=== PATIENT | female | born 1930 | race Caucasian/White ===

== ENCOUNTER → 2017-09-16 | Outpatient (CLI) | payer OTHER ==
[~2017-09-16] MED LIST: ALLOPURINOL300 MG PO; AMIODARONE HCL200 MG PO; ASPIRIN81 MG PO; BACTRIM DS TAB1 EACH PO; CALCITRIOL0.5 MCG PO; CELEXA20 MG PO; CITALOPRAM HBR20 MG PO; COLESTID1 G PO; COREG CR80 MG PO; CYTOMEL5 MCG PO; DOXYCYCLINE HY100 MG PO; ESTRADIOL1 MG PO; FIBERCON625 MG PO; FOLBEE TABLET1 EACH PO; FOLIC ACID1 MG PO; FUROSEMIDE40 MG PO; HYDROCODON-ACE1 EACH PO; HYDROXYCHLOROQ200 MG PO; K DUR10 MEQ PO; LASIX40 MG PO; OMEGA 3-6-9 11200 MG PO; PACERONE100 MG PO; PREDNISONE5 M1 PO; PREMARIN0.9 MG PO; PREMARIN1.25 MG PO; ROPINIROLE HCL1 MG PO; SIMVASTATIN20 MG PO; SULFASALAZINE500 M1 PO; TEMAZEPAM30 MG PO; ULORIC80 MG PO; ZETIA10 MG PO; ZITHROMAX250 MG PO
== END ==
LOC: NPA 09:00
PROVIDERS: ATTEND Internal Medicine
DX: Z02.89 Encounter for other administrative examinations (principal)

== ENCOUNTER → 2017-09-17 | Outpatient (CLI) | payer OTHER | LOC: NPA 09:00 | DX: Z02.89 Encounter for other administrative examinations (principal) | CPT/HCPCS: 87071; 87205 ==

== ENCOUNTER → 2017-09-24 | Outpatient (CLI) | payer OTHER ==
[2017-09-24 17:12] LABS: BASOPHILS # (AUTO) 0.1 (0.0-0.1); EOSINOPHILS # (AUTO) 0.4 (0.0-0.4); EOSINOPHILS % 8.8 % (0.0-6.0); HEMOGLOBIN 9.5 g/dL (12.0-16.0); LYMPHOCYTES # (AUTO) 1.4 (1.0-3.2); LYMPHOCYTES % 28.7 % (18.0-39.1); MEAN CORPUSCULAR HEMOGLOBIN 30.2 pg (28-32); MEAN CORPUSCULAR HGB CONC 32.8 g/dL (31-35); MEAN CORPUSCULAR VOLUME 92.1 fL (81-99); MONOCYTES # (AUTO) 0.5 (0.2-0.8); MONOCYTES % 10.9 % (4.4-11.3); NEUTROPHILS # (AUTO) 2.4 (2.1-6.9); NEUTROPHILS % 50.2 % (38.7-80.0); PLATELET COUNT 314 x10e3/uL (140-360); RED BLOOD COUNT 3.15 x10e6/uL (3.6-5.1); RED CELL DISTRIBUTION WIDTH 17.7 % (11.7-14.4)
== END ==
LOC: NPA 13:30
PROVIDERS: ATTEND Internal Medicine
DX: Z02.89 Encounter for other administrative examinations (principal)
CPT/HCPCS: 36415; 85025

== ENCOUNTER 2017-11-17 15:24 | Inpatient (IN) | payer MEDICARE, OTHER ==
[~2017-11-17] VITALS: Ht 175.3 cm; Wt 78.0 kg
--- OUTSIDE RECORDS SUMMARY | 2017-11-17 15:26 | XMS REPORT ---
Author Author [facility] Address Unknown Phone Unavailable Care Team Providers Care Early Morning Name Role Phone JL PACE Unavailable Unavailable RUEL STUART Unavailable Unavailable KASEY MENSAH Unavailable Unavailable ALEJANDRA SAUNDERS Unavailable Unavailable YOUNG SALAZAR Unavailable Unavailable Problems This patient has no known problems. Allergies, Adverse Reactions, Alerts This patient has no known allergies or adverse reactions. Medications This patient has no known medications. Results Test Description Test Time Test Comments Text Results Atomic Results Result Comments CT BRAIN WO [place] [address] Patient Name: SANDRA CLEMONS MR #: [id number] : 1930 Age/Sex: 87/F Req #: [id number] Adm Physician: JL PACE MD Ordered by: JACOB CESPEDES MD Report #: [id number] Location: [facility] Room/Bed: [facility] _ Procedure: [id number] CT/CT BRAIN WO Exam Date: 07/20/17 Exam Time: 1015 REPORT STATUS: Signed EXAMINATION: Head CT HISTORY: Altered mental status COMPARISON: None. TECHNIQUE: Multidetector axial images were obtained without contrast from the foramen magnum to the vertex . The images were reconstructed using brain and bone algorithms. Thin section brain images were reformatted into coronal and sagittal planes. Intravenous contrast: None. Motion/streaking artifact limits the evaluation of the skull base and posterior cranial fossa. FINDINGS: Parenchyma: 1. No abnormal densities. 2. No mass or hemorrhage. No CT evidence of acute territorial vascular insult. Extra-axial spaces:No abnormal density. No extra-axial fluid collections Brain volume: Normal for age. Ventricles: No hydrocephalus or displacement. Arteries: No density suggestive of thrombus. Dural sinuses: No abnormal density. Extra-axial spaces: No abnormal density. Foramen magnum: No mass, Chiari malformation, or basilar invagination. Sella: No obvious mass. Paranasal/mastoid sinuses : Mild mucosal inflammatory thickening of the maxillary sinuses and partial opacification of the left anterior ethmoidal sinuses. Skull/Scalp: No lytic or blastic lesions. No fractures. IMPRESSION: No acute intracranial abnormalities, particularly no mass, hydrocephalus, hemorrhage or acute cortical infarct. Signed by: Dr. Fariha Núñez M.D. on 07/20/2017 7: 01 PM Dictated By: FARIHA NÚÑEZ MD 00 Transcribed By: CLAUDIA on 07/20/171900 COPY TO: JACOB CESPEDES MD CT CERVICAL SPINE WO [place] [address] Patient Name: SANDRA CLEMONS MR #: [id number] : 1930 Age/Sex: 87/F Req #: [id number] Adm Physician: Ordered by: RUEL STUART MD Report #: [id number] Location: ER Room/Bed: ___ Procedure: [id number] CT/CT CERVICAL SPINE WO Exam Date: 07/12/17 Exam Time: 2313 REPORT STATUS: Signed History: Neck pain Comparison studies: CT neck 05/01/2017 Technique: Axial images were obtained through the cervical region.. Coronal and sagittal images reconstructed from the axial data.. Intravenous contrast: None Image quality: Suboptimal evaluation due to streak and motion artifacts. Findings: Fractures: None. Soft tissue injuries: None. Atlantoaxial articulation: No acute abnormality, degenerative changes given by decreased predental space, sclerotic changes and marginal osteophyte. Alignment: Straightening of the cervical spine lordosis with grade 1 anterolisthesis at C4- C5. Cervicomedullary junction: No abnormalities. The foramen magnum is patent. Soft tissues: No abnormalities. Vertebrae: No fractures, infection or neoplasm. Degenerative changes: C2 -- C3: Bilateral facet hypertrophy without significant canal stenosis or foraminal narrowing. C3 -- C4: Decreased intervertebral space. Bilateral uncinate process hypertrophy, bilateral facet hypertrophy and posterior disc of right complex results in mild canal stenosis, severe right and moderate left foraminal narrowing. C4 -- C5: Decreased intervertebral space, endplate sclerotic changes. Posterior disc osteophyte complex, bilateral uncinate process hypertrophy and facet hypertrophy results in mild canal stenosis and moderate bilateral. C5 -- C6: Obliterated intervertebral space with endplate sclerotic changes. Diffuse disc osteophyte complex, bilateral uncinate process hypertrophy and facet hypertrophy results in moderate canal stenosis and moderate bilateral foraminal narrowing. C6 -- C7: Decreased intervertebral space. Diffuse disc osteophyte complex, bilateral uncinate process hypertrophy and facet hypertrophy results in mild canal stenosis, severe right and moderate left foraminal narrowing. C7 -- T1: Facet hypertrophy with patent canal and. Incidental findin.1 x 0.9 cm hypodense nodule in left lobe of thyroid. Emphysematous changes at both lung apices. IMPRESSION: 1. No acute cervical abnormality. Degenerative of the cervical spine as described above. Stable examination. . Signed by: DR Parish David M.D. on 07/12/2017 11:29 PM Dictated By: PARISH OATES MD 28 Transcribed By: CLAUDIA on 07/12/172328 COPY TO: RUEL STUART MD SHOULDER LEFT COMPLETE [place] [address] Patient Name: SANDRA CLEMONS MR #: [id number] : 1930 Age/Sex: 87/F Req #: [id number] [facility] Physician: Ordered by: KASEY MENSAH MD Report #: [id number] Location: ER Room/Bed: Procedure: [id number] DX/SHOULDER LEFT COMPLETE Exam Date: 05/01/17 Exam Time: 1105 REPORT STATUS: Signed PROCEDURE: X- RAY LEFT SHOULDER, external, and internal rotation views COMPARISON: [facility], DX, CHEST 2 VIEWS, 08/05/2016, 11:00. [facility], DX, CHEST SINGLE (NOT PORTABLE), 05/01/2017, 11:04. INDICATIONS: LEFT SHOULDER PAIN FROM FALL FINDINGS: Exam limited by limited mobility due to c-collar. Normal mineralization for age. No acute displaced fracture or dislocation. No lytic or blastic lesions. Soft tissues are unremarkable. Partially visualized. Cardiac device in the left upper chest. Visualized portions of left lung are clear. CONCLUSION: No acute displaced fracture or dislocation, within the limitations of the study.. Chris Martinez M.D. Dictated by : Chris Martinez M.D. on 05/01/2017 at 12:28 Electronically approved by: Chris Martinez M.D. on 05/01/2017 at 12:28 Dictated By : CHRIS MARTINEZ MD 1228 Transcribed By: LUCIANO on 05/01/17 1228 COPY TO: KASEY MENSAH MD CT CERVICAL SPINE WO [place] [address] Patient Name: SANDRA CLEMONS MR #: [id number] : 1930 Age/Sex: 87/F Req #: [id number] Adm Physician: Ordered by: KASEY MENSAH MD Report #: [id number] Location: ER Room/Bed: Procedure: [id number] CT/CT CERVICAL SPINE WO Exam Date: Exam Time: REPORT STATUS: Signed Exams: Head and cervical spine CTs without IV contrast History: Fall, pain Comparison studies: Head and cervical spine CTs of 05/26/2014. Technique: Axial images were obtained from the brain and cervical spine. Coronal and sagittal images reconstructed from the axial data. Intravenous contrast: None Findings: Head CT: Scalp: No abnormalities. Bones: No fractures, blastic or lytic lesions. Extra-axial spaces: No masses. No fluid collections. Brain sulci: Mildly prominent age appropriate Ventricles: Normal in size and configuration. No hydrocephalus. Parenchyma: No abnormal densities. No masses, acute hemorrhage, acute or chronic vascular insults. Sellar/ suprasellar region: No abnormalities. Craniocervical junction: The foramen magnum is patent. No Chiari one malformation. Cervical spine CT: Fractures: No acute fractures. Subtle deformity of the right spinal laminar junction may be sequela previous trauma. Soft tissues: No gross abnormalities. Atlantoaxial articulation: Intact. Alignment: Straightened cervical curvature may be positional. There is minimal anterolisthesis of C4 on C5 and anterolisthesis of C7 on T1 are likely degenerative and unchanged. Cervicomedullary junction: No abnormalities. The foramen magnum is patent. Vertebrae: No infection or neoplasm. Degenerative changes: C2-C3: Mildly degenerated disc. Mild canal stenosis due to a disc osteophyte complex and thickened ligamenta flava Severe left facet arthrosis. C3-C4: Moderately degenerated disc. Mild canal stenosis due to a disc osteophyte,. Severe left and moderate right foraminal stenosis due to uncovertebral and severe right and moderate left frontal stenosis. C4-C5: Moderately degenerated disc. Minimal anterolisthesis of C4 on C5 with associated disc osteophyte complex results in at least mild canal stenosis. Moderate bilateral foraminal stenosis due to uncovertebral and severe left and moderate right foraminal stenosis. C5-C6: Severely degenerated disc. Moderate to severe canal stenosis due to a disc osteophyte complex. Moderate bilateral foraminal stenosis due to uncovertebral and facet arthrosis. C6 -C7: Moderately degenerated disc. Mild to moderate canal stenosis due to a disc osteophyte complex. Severe bilateral foraminal stenosis due to uncovertebral arthrosis. C7-T1: Severe bilateral facet arthrosis. Patent canal and foramina. Lung apices: Mild nonspecific pleural thickening and scarring at the lung apices. Incidental findings: Atherosclerotic calcifications in the carotid siphons and in the cervical carotid bulbs. Bilateral lens replacements related to previous cataract surgery. Nonspecific inflammatory mucosal thickening in the bilateral maxillary sinuses. IMPRESSION: Head CT: 1. No acute abnormalities. 2. Mild age-related generalized volume loss. 3. No changes from the previous head CT of 2013. Cervical spine CT: 1. No acute cervical spine fracture or acute subluxation. 2. Moderate degenerative changes as described. 3. No significant changes from the previous cervical spine CT of 05/26/2014. 4. Cannot exclude ligament, spinal cord and or vascular abnormalities on the basis of this examination. Signed by: Dr. Kelton Gandara M.D. on 05/01/2017 11:59 AM Dictated By: KELTON GANDARA MD 1151 Transcribed By: CLAUDIA on 05/01/17 1154 COPY TO: KASEY MENSAH MD CT BRAIN WO [place] [address] Patient Name: SANDRA CLEMONS MR #: [id number] : 1930 Age/Sex: 87/F Req #: [id number] Adm Physician: Ordered by: KASEY MENSAH MD Report #: [id number] Location: Room/Bed: Procedure: [id number] CT/CT BRAIN WO Exam Date: Exam Time: REPORT STATUS: Signed Exams: Head and cervical spine CTs without IV contrast History: Fall, pain Comparison studies: Head and cervical spine CTs of 05/26. Technique: Axial images were obtained from the brain and cervical spine. Coronal and sagittal images reconstructed from the axial data. Intravenous contrast: None Findings: Head CT: Scalp: No abnormalities. Bones: No fractures, blastic or lytic lesions. Extra- axial spaces: No masses. No fluid collections. Brain sulci: Mildly prominent age appropriate Ventricles: Normal in size and configuration. No hydrocephalus. Parenchyma: No abnormal densities. No masses, acute hemorrhage, acute or chronic vascular insults. Sellar/suprasellar region: No abnormalities. Craniocervical junction: The foramen magnum is patent. No Chiari one malformation. Cervical spine CT: Fractures: No acute fractures. Subtle deformity of the right spinal laminar junction may be sequela previous trauma. Soft tissues: No gross abnormalities. Atlantoaxial articulation: Intact. Alignment: Straightened cervical curvature may be positional. There is minimal anterolisthesis of C4 on C5 and anterolisthesis of C7 on T1 are likely degenerative and unchanged. Cervicomedullary junction: No abnormalities. The foramen magnum is patent. Vertebrae: No infection or neoplasm. Degenerative changes: C2- C3: Mildly degenerated disc. Mild canal stenosis due to a disc osteophyte complex and thickened ligamenta flava Severe left facet arthrosis. C3-C4: Moderately degenerated disc. Mild canal stenosis due to a disc osteophyte,. Severe left and moderate right foraminal stenosis due to uncovertebral and severe right and moderate left frontal stenosis. C4-C5: Moderately degenerated disc. Minimal anterolisthesis of C4 on C5 with associated disc osteophyte complex results in at least mild canal stenosis. Moderate bilateral foraminal stenosis due to uncovertebral and severe left and moderate right foraminal stenosis. C5-C6: Severely degenerated disc. Moderate to severe canal stenosis due to a disc osteophyte complex. Moderate bilateral foraminal stenosis due to uncovertebral and facet arthrosis. C6 -C7: Moderately degenerated disc. Mild to moderate canal stenosis due to a disc osteophyte complex. Severe bilateral foraminal stenosis due to uncovertebral arthrosis. C7-T1: Severe bilateral facet arthrosis. Patent canal and foramina. Lung apices: Mild nonspecific pleural thickening and scarring at the lung apices. Incidental findings: Atherosclerotic calcifications in the carotid siphons and in the cervical carotid bulbs. Bilateral lens replacements related to previous cataract surgery. Nonspecific inflammatory mucosal thickening in the bilateral maxillary sinuses. IMPRESSION: Head CT: 1. No acute abnormalities. 2. Mild age-related generalized volume loss. 3. No changes from the previous head CT of 2013. Cervical spine CT: 1. No acute cervical spine fracture or acute subluxation. 2. Moderate degenerative changes as described. 3. No significant changes from the previous cervical spine CT of 05/26/2014. 4. Cannot exclude ligament, spinal cord and or vascular abnormalities on the basis of this examination. Signed by: Dr. Kelton Gandara M.D. on 05/01/2017 11:59 AM Dictated By: KELTON GANDARA MD 115 Transcribed By: CLAUDIA on 05/01/17 115 COPY TO: KASEY MENSAH MD FOREARM LEFT 2 VIEW [place] [address] Patient Name: SANDRA CLEMONS MR #: [id number] : 1930 Age/Sex: 87/F Req #: [id number] Adm Physician: Ordered by: KASEY MENSAH MD Report #: [id number] Location: Room/Bed: Procedure: DX/FOREARM LEFT 2 VIEW Exam Date: Exam Time: REPORT STATUS: Signed PROCEDURE: X-RAY LEFT FOREARM , TWO VIEWS COMPARISON: None. INDICATIONS: LEFT ARM PAIN FINDINGS: Normal mineralization for age. No acute displaced fracture or dislocation. No lytic or blastic lesion. Elbow joint spaces are relatively well-preserved. Moderate degenerative changes at the first finger carpometacarpal joint and second and third finger metacarpophalangeal joints. Multiple metallic clips project in the soft tissues of the ulnar side of the elbow. CONCLUSION: No acute abnormalities. Findings in the first carpometacarpal joint and second and third metacarpophalangeal joints likely reflect osteoarthritis. Chris Martinez M.D. Dictated by: Chris Martinez M.D. on 05/01/2017 at 12:20 Electronically approved by: Chris Martinez M.D. on 05/01/2017 at 12:20 Dictated By: CHRIS MARTINEZ MD 1220 Transcribed By: LUCIANO on 05/01/17 1220 COPY TO: KASEY MENSAH MD CHEST SINGLE (NOT PORTABLE) [place] [address] Patient Name: SANDRA CLEMONS MR #: [id number] : 1930 Age/Sex: 87/F Req #: [id number] Adm Physician: Ordered by: KASEY MENSAH MD Report #: [id number] Location: ER Room/Bed: Procedure: DX/CHEST SINGLE (NOT PORTABLE) Exam Date: Exam Time: REPORT STATUS: Signed PROCEDURE: A single AP view of the chest. COMPARISON: [facility], DX, CHEST SINGLE (PORTABLE), 04/27/2017, 1:18. INDICATIONS: FALL FINDINGS: Lines/tubes: Left-sided cardiac device with 2 atrial leads and a single right ventricular lead. Lungs: The lungs are well inflated and clear. There is no evidence of pneumonia or pulmonary edema. Pleura: There is no pleural effusion or pneumothorax. Heart and mediastinum: The heart and the mediastinum are unremarkable. Bones: No acute bony abnormality. No obvious rib fractures. IMPRESSION: No acute cardiopulmonary disease. Wes Copeland D.O. Dictated by: Wes Copeland D.O. on 05/01/2017 at 12:22 Electronically approved by: Wes Copeland D.O. on 05/01/2017 at 12:22 Dictated By: WES COPELAND DO 1222 Transcribed By: LUCIANO on 05/01/17 1222 COPY TO: KASEY MENSAH MD HAND 3+ VIEWS LEFT [place] [address] Patient Name: SANDRA CLEMONS MR #: [id number] : 1930 Age/Sex: 87/F Req #: [id number] Adm Physician: Ordered by: KASEY MENSAH MD Report #: [id number] Location: ER Room/Bed: Procedure: [id number] DX/HAND 3+ VIEWS LEFT Exam Date: Exam Time: REPORT STATUS: Signed PROCEDURE: X-RAY LEFT HAND, THREE OR MORE VIEWS COMPARISON: None. INDICATIONS: LEFT HAND PAIN FROM FALL FINDINGS: Moderate juxta-articular osteopenia. No acute, displaced fractures or dislocations. Moderate degenerative changes at the first carpometacarpal joint, first distal interphalangeal joint, second, and third metacarpophalangeal joints, with cystic degenerative changes, and all distal interphalangeal joints. Mild subluxation of the third metacarpophalangeal joint. No lytic lesions. Soft tissues are grossly unremarkable. CONCLUSION: Juxta-articular osteopenia, which limits evaluation of the bony structures. No acute displaced fracture or dislocation. Findings consistent with osteoarthritis. Chris Martinez M.D. Dictated by: Chris Martinez M.D. on 05/01/2017 at 12:23 Electronically approved by: Chris Martinez M.D. on 05/01/2017 at 12:23 Dictated By: CHRIS MARTINEZ MD 1223 Transcribed By: LUCIANO on 05/01/17 1223 COPY TO: KASEY MENSAH MD KNEE LEFT THREE VIEWS [place] [address] Patient Name: SANDRA CLEMONS MR #: [id number] : 1930 Age/Sex: 87/F Req #: [id number] Adm Physician: Ordered by: KASEY MENSAH MD Report #: [id number] Location: ER Room/Bed: Procedure: [id number] DX/KNEE LEFT THREE VIEWS Exam Date: 05/01/17 Exam Time: 1105 REPORT STATUS: Signed PROCEDURE: X- RAY LEFT KNEE, THREE OR MORE VIEWS COMPARISON: [facility], DX, KNEE LEFT THREE VIEWS, 08/02/2016, 21:11. INDICATIONS: LEFT KNEE PAIN FROM FALL FINDINGS: The bones are demineralized. There are no acute fractures, subluxations, lytic or blastic lesions. Deformity of the proximal fibula with a moth-eaten appearance likely is related to prior trauma in the portion that is visualized on the prior study appears similar. Tricompartmental degenerative changes. There is no evidence of a joint effusion. CONCLUSION: Tricompartmental degenerative changes without evidence of a fracture. Wes Copeland D.O. Dictated by: Wes Copeland D.O. on 05/01/2017 at 12:26 Electronically approved by: Wes Copeland D.O. on 05/01/2017 at 12:26 Dictated By: WES COPELAND DO 1226 Transcribed By: LUCIANO on 05/01/17 1226 COPY TO: KASEY MENSAH MD CT HIP RIGHT WO [place] [address] Patient Name: SANDRA CLEMONS MR #: [id number] : 1930 Age/Sex: 87/F Req #: [id number] Adm Physician: JL PACE MD Ordered by: BELGICA DAVIS MD Report #: [id number] Location: MED/SURG2 Room/Bed: [facility] _ Procedure: [id number] CT/CT HIP RIGHT WO Exam Date: Exam Time: REPORT STATUS: Signed CT HIP RIGHT WO Clinical history: S ? Hematoma, can't walk, ecchymosis proximal lateral R thigh Technique: Volumetric CT scan of the right hip was performed. No intravenous contrast was administered. Coronal, sagittal and axial images are generated from source data. Comparison: None Findings: Visualized pelvis: A Ma is noted in the bladder. Diverticulosis. Scattered atherosclerotic calcifications are present. Bones/Soft tissues: There is no acute fracture or dislocation. Mild right hip and moderate pubic symphysis degenerative changes. No soft tissue fluid collection seen. Impression: No acute fracture seen. Signed by: Dr Cortney Coronado MD on 04/27/2017 3:40 AM Dictated By: CORTNEY CORONADO MD 9 Transcribed By: CLAUDIA on 04/27/17339 COPY TO: BELGICA DAVIS MD HIP RIGHT 2-3 VW (+/- PELVIS) [place] [address] Patient Name: SANDRA CLEMONS MR #: [id number] : 1930 Age/Sex: 87/F Req #: [id number] Adm Physician: JL PACE MD Ordered by: BELGICA DAVIS MD Report #: [id number] Location: MED/SURG2 Room/Bed: [facility] Procedure: [id number] DX/HIP RIGHT 2-3 VW (+/- PELVIS) Exam Date: Exam Time: REPORT STATUS: Signed FEMUR TWO VIEW MINIMUM RIGHT, KNEE RIGHT 1-2 VIEWS, HIP RIGHT 2-3 VW (+/- PELVIS) Comparison: None Clinical history: Unable to bear weight Findings: Right hip, right knee, and right femur: Moderate pubic symphysis degenerative changes. Small right knee joint effusion with mild tricompartmental degenerative changes. No acute fracture or dislocation. Impression: No acute bony abnormality Signed by: Dr Cortney Coronado MD on 04/27/2017 2:30 AM Dictated By: CORTNEY CORONADO MD 9 Transcribed By: CLAUDIA on 04/27 COPY TO: BELGICA DAVIS MD KNEE RIGHT 1-2 VIEWS [place] [address] Patient Name: SANDRA CLEMONS MR #: [id number] : 1930 Age/Sex: 87/F Req #: [id number] Adm Physician: JL PACE MD Ordered by: BELGICA DAVIS MD Report #: [id number] Location: MED/SURG2 Room/Bed: [facility] Procedure: [id number] DX/KNEE RIGHT 1-2 VIEWS Exam Date : 04/27/17 Exam Time: 0125 REPORT STATUS: Signed FEMUR TWO VIEW MINIMUM RIGHT, KNEE RIGHT 1-2 VIEWS, HIP RIGHT 2-3 VW ( +/- PELVIS) Comparison: None Clinical history: Unable to bear weight Findings: Right hip, right knee, and right femur: Moderate pubic symphysis degenerative changes. Small right knee joint effusion with mild tricompartmental degenerative changes. No acute fracture or dislocation. Impression: No acute bony abnormality Signed by: Dr Cortney Coronado MD on 04/27/2017 2:30 AM Dictated By: CORTNEY CORONADO MD 9 Transcribed By: CLAUDIA on 04/27 COPY TO: BELGICA DAVIS MD FEMUR TWO VIEW MINIMUM RIGHT [place] [address] Patient Name: SANDRA CLEMONS MR #: [id number] : 1930 Age/Sex: 87/F Req #: [id number] Adm Physician: JL PACE MD Ordered by: BELGICA DAVIS MD Report #: [id number] Location: MED/SURG2 Room/Bed: [facility] Procedure: DX/FEMUR TWO VIEW MINIMUM RIGHT Exam Date: Exam Time: REPORT STATUS: Signed FEMUR TWO VIEW MINIMUM RIGHT, KNEE RIGHT 1-2 VIEWS, HIP RIGHT 2-3 VW (+/- PELVIS) Comparison: None Clinical history: Unable to bear weight Findings: Right hip, right knee, and right femur: Moderate pubic symphysis degenerative changes. Small right knee joint effusion with mild tricompartmental degenerative changes. No acute fracture or dislocation. Impression: No acute bony abnormality Signed by: Dr Cortney Coronado MD on 04/27/2017 2:30 AM Dictated By: CORTNEY CORONADO MD 9 Transcribed By: CLAUDIA on 04/27 COPY TO: BELGICA DAVIS MD [facility] ([place] [address] Patient Name: SANDRA CLEMONS MR #: [id number] : 1930 Age/Sex: 87/F Req #: [id number] Adm Physician: JL PACE MD Ordered by: BELGICA DAVIS MD Report #: [id number] Location: MED/SURG2 Room/Bed: [facility] Procedure: [id number] DX/CHEST SINGLE (PORTABLE) Exam Date: 04/27/17 Exam Time: 0125 REPORT STATUS: Signed CHEST SINGLE (PORTABLE), 04/27/2017 12:51 AM Technique: CHEST SINGLE (PORTABLE) Comparison: 08/11/2016 Clinical history: Unable to walk Findings: See Impression Impression: 1. Stable cardiomegaly and left-sided pacer. 2. Stable appearance of the lungs and pleural spaces. No edema, consolidation, pleural effusion or pneumothorax. Signed by: Dr Cortney Coronado MD on 04/27/2017 2:32 AM Dictated By: CORTNEY CORONADO MD 1 Transcribed By: CLAUDIA on 04/27/17231 COPY TO: BELGICA DAVIS MD CHEST XRAY LINE PLACEMENT [place] [address] Patient Name: SANDRA CLEMONS MR #: [id number] : 1930 Age/Sex: 87/F Req #: [id number] [facility] Physician: JL PACE MD Ordered by: JL PACE MD Report #: [id number] Location: [facility] Room/Bed: [place] [address] Procedure: [id number] DX/CHEST XRAY LINE PLACEMENT Exam Date: 08/11/16 Exam Time: 2243 REPORT STATUS: Signed CHEST XRAY LINE PLACEMENT Clinical history: PICC insertion Technique: Oblique images of the chest Comparison: Same day earlier Findings: See Impression Impression: Lines/Tubes: Right PICC tip seen overlying the SVC (mid to distal). Signed by: Dr Cortney Coronado MD on 08/11 11:14 PM Dictated By: CORTNEY CORONADO MD 13 Transcribed By: CLAUDIA on 08/11/162313 COPY TO: JL PACE MD CHEST XRAY LINE PLACEMENT [place] [address] Patient Name: SANDRA CLEMONS MR #: [id number] : 1930 Age/Sex: 87/F Req #: [id number] Adm Physician: JL PACE MD Ordered by: JL PACE MD Report #: [id number] Location: [facility] Room/Bed: [place] [address] Procedure: [id number] DX/CHEST XRAY LINE PLACEMENT Exam Date: Exam Time: REPORT STATUS: Signed CHEST XRAY LINE PLACEMENT Clinical history: PICC placement Technique: AP view chest Comparison: 12/26/2015 Findings: See Impression Impression: 1. Lines/Tubes: Right PICC seen as are the SVC, tip/remaining course obscured by cardiac pacer. Consider repeat with oblique frontal positioning or upright PA and lateral as indicated. 2. Stable mild cardiomegaly. Minimal left basilar scarring or atelectasis. Signed by: Dr Cortney Coronado MD on 08/11/2016 10:15 PM Dictated By: CORTNEY CORONADO MD 14 Transcribed By : CLAUDIA on 08/11/162214 COPY TO: JL PACE MD CHEST [address] [place] [address] Patient Name: SANDRA CLEMONS MR #: [id number] : 1930 Age/Sex: 87/F Req #: [id number] Adm Physician: JL PACE MD Ordered by: MCKINLEY SWANSON MD, MD Report #: [id number] Location: [facility] Room/Bed: [place] [address] ___ Procedure: [id number] DX/CHEST 2 VIEWS Exam Date: 08/05/16 Exam Time: 1110 REPORT STATUS: Signed PROCEDURE: CHEST 2 VIEWS TECHNIQUE: PA lateral chest INDICATION: Pneumonia COMPARISON: [facility], DX, CHEST SINGLE (PORTABLE), 08/01/2016, 21:53. FINDINGS: The trace pleural effusions with adjacent airspace opacity in keeping with atelectasis and/or superimposed pneumonia. Enlarged cardiac silhouette with central vascular enlargement. 3-lead pacemaker of the left hemithorax; leads intact. Grossly intact skeleton. CONCLUSION: 1. Cardiomegaly with stable central vascular congestion and trace bilateral pleural effusions. 2. Lower lobe air space opacity in keeping with relaxant atelectasis related to effusions and/or superimposed pneumonia. Dictated by: Young Rajan M.D. on 08/05/2016 at 12:09 Electronically approved by: Young Rajan M.D. on 08/05/2016 at 12:09 Dictated By: YOUNG RAJAN MD 1210 Transcribed By: LUCIANO on 08/05/16 1210 COPY TO: MCKINLEY SWANSON RENAL RETROPERITONEAL COMP [place] [address] Patient Name: SANDRA CLEMONS MR #: [id number] : 1930 Age/Sex: 87/F Req #: [id number] [facility] Physician: JL PACE MD Ordered by: MCKINLEY SWANSON MD, MD Report #: [id number] Location: [facility] Room/Bed: [place] [address] Procedure: [id number] US/US RENAL RETROPERITONEAL COMP Exam Date: Exam Time: REPORT STATUS: Signed EXAM: Renal Ultrasound INDICATION: COMPARISON: Renal ultrasound dated 05/02/2013 TECHNIQUE: Transverse and longitudinal images of the kidneys and bladder were obtained. FINDINGS: Right Kidney : Size: 9.8 cm Echogenicity: Increased Parenchymal thickness: Normal Collecting system: No hydronephrosis Stones: None Cyst/Mass: Mid/inferior cyst measuring 3.1 x 3.2 x 2.7 cm, previously 2.9 x 2.9 x 2.3 cm. Another midpole cyst measuring 1.4 x 1.1 x 1 cm , previously 1.5 x 1.4 x 1.7 cm. Left Kidney: Size: 7.1 cm Echogenicity: Increased Parenchymal thickness: Slightly decreased Collecting system: No hydronephrosis Stones: None Cyst/Mass : Largest cyst in superior pole measuring 2.3 x 1.6 x 2 cm. Bladder: Decompressed by a Ma catheter. IMPRESSION: Increased renal parenchymal echogenicity, compatible with medical renal disease. Bilateral renal cysts. Atrophic left kidney. Signed by: Dr. González Lei MD on 12:32 PM Dictated By: GONZÁLEZ LEI MD 1232 Transcribed By: CLAUDIA on 08/04/16 1232 COPY TO: MCKINLEY SWANSON ECHO COMPLETE (ECHOCARDIOGRAM) [facility] [address] [place] [address] Patient Name : SANDRA CLEMONS MR #: [id number] : 1930 Age/Sex: 87/F Adm Physician : JL PACE MD Admit Date : 08/02/16 Location : [facility] Room/Bed : [place] [address] REPORT: Cardiology Report DATE OF STUDY: August 03, 2016 INDICATION: Congestive heart failure with hypotension related to cellulitis and possible sepsis. PROCEDURE PERFORMED: Transthoracic echocardiogram. RESULTS: 1. Left ventricular dimensions were within normal limits. There was mild concentric left ventricular hypertrophy. Overall left ventricular contractility remained in the range of 35%. There was paradoxical septal wall motion noted as well. There was no left ventricular mural thrombus identified. The patient was in sinus rhythm, and there was evidence of left ventricular diastolic dysfunction based on mitral valve inflow pattern. 2. The aortic valve was mildly thickened. There was mild aortic stenosis identified. The calculated aortic valve area was 2.5 sq. cm. The patient had no significant aortic regurgitation noted. The aortic root dimensions were mildly enlarged in diameter at 3.8 cm. 3. The mitral valve exhibited mild mitral annular calcification. The valve itself appeared to open and close normally. The patient had mild mitral regurgitation directed posterolaterally. The left atrial dimensions were within normal limits. 4. The patient had moderate tricuspid regurgitation and trivial pulmonic regurgitation. These were across a normal tricuspid valve. The pulmonic valve was suboptimally visualized. Estimated pulmonary arterial systolic pressure was up to 32 mmHg (within normal limits). Note was made of a pacemaker lead traversing the tricuspid valve and extending towards the right ventricular apex. 5. There was no significant pericardial effusion identified. IMPRESSION: 1. Findings of mild concentric left ventricular hypertrophy with reduced left ventricular systolic function and estimated ejection fraction of 35%. There was also evidence of mild concentric left ventricular hypertrophy and left ventricular diastolic dysfunction. 2. Mild aortic stenosis. 3. Mild mitral regurgitation directed posterolaterally across a normal mitral valve with mild mitral annular calcification. 4. Moderate tricuspid regurgitation with normal pulmonary arterial systolic pressures. The patient also had trace pulmonic regurgitation of doubtful hemodynamic significance. 5. No significant pericardial effusion. 6. No left ventricular mural thrombus. 7. Identification of a transvenous pacemaker lead traversing the tricuspid valve. Job#: [id number] EV cc: TASHIA VIDAL MD Signature Date Dictated By: YOUNG SALAZAR MD Transcribed By: SMEDS on 08/04/16 <Electronically signed by YOUNG SALAZAR MD><<Signature on File>>08/25/16 0035 COPY TO: FEMUR 2 VIEWS MINIMUM LEFT [place] [address] Patient Name: SANDRA CLEMONS MR #: [id number] : 1930 Age/Sex: 87/F Req #: [id number] Adm Physician: JL PACE MD Ordered by: BELGICA DAVIS MD Report #: [id number] Location: [facility] Room/Bed: [place] [address] Procedure: [id number] DX/FEMUR 2 VIEWS MINIMUM LEFT Exam Date: Exam Time: REPORT STATUS: Signed KNEE LEFT THREE VIEWS FEMUR 2 VIEWS MINIMUM LEFT HISTORY: Trauma, ecchymosis COMPARISON: None FINDINGS: Bones: No displaced fracture. Osseous alignment is within normal limits. Joints: Moderate tricompartmental degenerative joint disease mostly involving the medial and femoral patellar compartments. Status post condensans pubis is noted. Soft tissues: Small suprapatellar effusion is present IMPRESSION: No acute radiographic abnormality. Degenerative changes of the left knee with small suprapatellar effusion. Signed by: Dr. Andre Hyatt M.D. on 08/02/2016 9:34 PM Dictated By: ANDRE BLANCHARD MD 33 Transcribed By: CLAUDIA on 08/02/162133 COPY TO: BELGICA DAVIS MD KNEE LEFT THREE VIEWS [place] [address] Patient Name: SANDRA CLEMONS MR #: [id number] : 1930 Age/Sex: 87/F Req #: [id number] Adm Physician: JL PACE MD Ordered by: BELGICA DAVIS MD Report #: [id number] Location: [facility] Room/Bed: [place] [address] Procedure: [id number] DX/KNEE LEFT THREE VIEWS Exam Date: 08/02/16 Exam Time: 2019 REPORT STATUS: Signed KNEE LEFT THREE VIEWS FEMUR 2 VIEWS MINIMUM LEFT HISTORY: Trauma, ecchymosis COMPARISON: None FINDINGS: Bones: No displaced fracture. Osseous alignment is within normal limits. Joints: Moderate tricompartmental degenerative joint disease mostly involving the medial and femoral patellar compartments. Status post condensans pubis is noted. Soft tissues: Small suprapatellar effusion is present IMPRESSION: No acute radiographic abnormality. Degenerative changes of the left knee with small suprapatellar effusion. Signed by: Dr. Andre Hyatt M.D. on 08/02/2016 9:34 PM Dictated By: ANDRE BLANCHARD MD 33 Transcribed By: CLAUDIA on 08/02/162133 COPY TO: BELGICA DAVIS MD CHEST SINGLE (PORTABLE) [place] [address] Patient Name: SANDRA CLEMONS MR #: [id number] : 1930 Age/Sex: 87/F Req #: [id number] Adm Physician: JL PACE MD Ordered by: BELGICA DAVIS MD Report #: [id number] Location: [facility] Room/Bed: [place] [address] Procedure: [id number] DX/CHEST SINGLE (PORTABLE) Exam Date: 08/01/16 Exam Time: 2144 REPORT STATUS: Signed EXAMINATION: CHEST SINGLE (PORTABLE) INDICATION: Hypotension. COMPARISON: 12/26/2015 FINDINGS: TUBES and LINES : The pacemaker is intact. EKG leads overlie the chest. LUNGS: Lungs are well inflated. There are bibasilar atelectasis. There is perihilar interstitial opacities, consistent with interstitial edema. PLEURA: No pleural effusion or pneumothorax. HEART AND MEDIASTINUM: Cardiac size is moderately enlarged. There are atherosclerotic calcifications within the aorta. BONES AND SOFT TISSUES: No acute osseous lesion. Soft tissues are unremarkable. UPPER ABDOMEN: No free air under the diaphragm. IMPRESSION: Findings are compatible with mild to moderate cardiogenic pulmonary edema. Signed by: Dr. Andre Hyatt M.D. on 08/01/2016 10:06 PM Dictated By: ANDRE BLANCHARD MD 05 Transcribed By: CLAUDIA on 08/01/162205 COPY TO: BELGICA DAVIS MD CT PELVIS WO [place] [id number] [place] [address] Patient Name: SANDRA CLEMONS MR #: [id number] : 1930 Age/Sex: 87/F Req #: [id number] Adm Physician: Ordered by: ALEJANDRA SAUNDERS MD Report #: [id number] Location: ER Room/Bed: Procedure: [id number] CT/CT PELVIS WO Exam Date: 07/30/16 Exam Time: 1750 REPORT STATUS: Signed PROCEDURE: CT PELVIS WITHOUT CONTRAST COMPARISON: DX, PELVIS AP 1-2 VIEWS, 05/26/2014, 20:05. INDICATIONS: LEFT HIP PAIN/EVALUATE FOR FRACTURE TECHNIQUE: Spiral CT images of the pelvis were performed from the iliac crest to the lesser trochanters. No intravenous contrast was administered. Coronal and sagittal reformatted images in bone and soft tissue windows were performed. FINDINGS: PELVIC ORGANS: Bladder is unremarkable. Uterus is absent. No adnexal masses. LYMPH NODES: No distal retroperitoneal, pelvic, or inguinal adenopathy. GI TRACT: No bowel dilation or evidence of obstruction. Descending and sigmoid colon diverticulosis without diverticulitis. VESSELS : Atherosclerotic calcification of the abdominal aorta and iliac vessels BONES: No acute, displaced right sure or dislocations. No lytic lesions. Degenerative joint disease in the form of facet hypertrophy at L5-S1. Degenerative disc changes at L5-S1. SOFT TISSUES: Unremarkable. CONCLUSION: 1. No acute, displaced fracture or dislocation. Chris Martinez M.D. Dictated by: Chris Martinez M.D. on 07/30/2016 at 18:29 Electronically approved by: Chris Martinez M.D. on 2015 at 18:29 Dictated By: CHRIS MARTINEZ MD 28 Transcribed By: LUCIANO on 1828 COPY TO: ALEJANDRA SAUNDERS MD CHEST 2 VIEWS [facility] [address] [place] [address] Patient Name: SANDRA CLEMONS MR #: [id number] : 1930 Age/Sex: 87/F Req #: [id number] Adm Physician: Ordered by: YOUNG SALAZAR MD Report #: [id number] Location: RESP Room/Bed: Procedure: [id number] DX/ CHEST 2 VIEWS Exam Date: 12/26/15 Exam Time: 1630 REPORT STATUS: Signed PROCEDURE: Frontal and lateral views of the chest. COMPARISON: [facility], DX, CHEST 2 VIEWS, 05/29/2015, 15:48. INDICATIONS: FATIGUE; SHORTNESS OF BREATH FINDINGS : Lines/tubes: Stable left upper chest triple lead cardiac device, with the distal dystrophic in the right atrium and right ventricle. Lungs: The lungs are well inflated and clear. There is no evidence of pneumonia or pulmonary edema. Pleura: There is no pleural effusion or pneumothorax. Heart and mediastinum: Stable enlargement of the cardiac silhouette, with prominence of the left atrium. Pulmonary vasculature is normal. Bones : No acute bony abnormality. IMPRESSION: 1. stable enlargement of the cardiac silhouette without acute cardiopulmonary abnormalities. Chris Martinez M.D. Dictated by: Chris Martinez M.D. on 2015 at 17:12 Electronically approved by: Chris Martinez M.D. on at 17:12 Dictated By: CHRIS MARTINEZ MD 06 Transcribed By: LUCIANO on 12/26/15 1712 COPY TO: YOUNG SALAZAR MD CHEST 2 VIEWS [facility] [address] [place] [address] Patient Name: SANDRA CLEMONS MR #: [id number] : 1930 Age/Sex: 87/F Req #: [id number] Adm Physician: Ordered by: YOUNG SALAZAR MD Report #: [id number] Location: RESP Room/Bed: Procedure: [id number] DX/ CHEST 2 VIEWS Exam Date: 05/29/15 Exam Time: 1610 REPORT STATUS: Signed PROCEDURE: Frontal and lateral views of the chest. COMPARISON: [facility], DX, CHEST SINGLE (PORTABLE), 05/26/2014, 19:57. INDICATIONS: SAFETY PERSON USE OF AMIODARONE FINDINGS: Lines/tubes: Triple lead left-sided cardiac device with 2 leads extending to the atrium and a single right ventricular lead. Previously described pulmonary edema has resolved. Surgical clips overlying the upper left arm. Lungs: The lungs are well inflated and clear. There is no evidence of pneumonia or pulmonary edema. Right basilar atelectasis/ scarring. Pleura: There is no pleural effusion or pneumothorax. Heart and mediastinum: The heart is prominent. Bones: No acute bony abnormality. Mild degenerative changes of the spine. IMPRESSION: No acute cardiopulmonary disease. Wes Copeland D.O. Dictated by: Wes Copeland D.O. on 05/29/2015 at 17:24 Electronically approved by : Wes Copeland D.O. on 05/29/2015 at 17:24 Dictated By: WES COPELAND DO 11 Transcribed By: LUCIANO on 05/29/151723 COPY TO: YOUNG SALAZAR MD CHEST SINGLE (PORTABLE) [place] [address] Patient Name: SANDRA CLEMONS MR #: [id number] : 1930 Age/Sex: 87/F Req #: [id number] Adm Physician: JL PACE MD Ordered by: RUEL STUART MD Report #: [id number] Location: MED/SURG2 Room/Bed: [facility] Procedure: [id number] DX/CHEST SINGLE (PORTABLE) Exam Date: 05/26/14 Exam Time: 2024 REPORT STATUS: Signed Chest, 1 view. Clinical information: Status post fall. Portable AP view of the chest was performed. Comparison is made to prior study performed 04/05/2013. There is a left tri lead pacemaker. There is central venous congestion without focal consolidation. There is no pleural effusion or pneumothorax. The cardiac silhouette is enlarged. The aorta is tortuous. There are degenerative changes of the acromioclavicular joints. Impression: Mild central pulmonary edema. Dictated By: DONATO COLON MD 12 Transcribed By: CLAUDIA on 05/26/142111 COPY TO: RUEL STUART MD PELVIS AP 1-2 VIEWS [place] [address] Patient Name: SANDRA CLEMONS MR #: [id number] : 1930 Age/Sex: 87/F Req #: [id number] Adm Physician: JL PACE MD Ordered by: RUEL STUART MD Report #: [id number] Location: MED/SURG2 Room/Bed: - Procedure: DX/PELVIS AP 1-2 VIEWS Exam Date: 05/26/14 Exam Time: 2024 REPORT STATUS: Signed Pelvis, single view. Clinical information:Status post fall. Single AP view of the pelvis was performed. There are no prior studies available for comparison. There are degenerative changes of the lower lumbar spine. There is mild joint space narrowing of the hip joints and pubic symphysis. Impression: No fracture or dislocation. Degenerative disc disease and osteoarthritis. Dictated By: DONATO COLON MD 13 Transcribed By : CLAUDIA on 05/26/142112 COPY TO: RUEL STUART MD CT BRAIN WO [place] [address] Patient Name: SANDRA CLEMONS MR #: [id number] : 1930 Age/Sex: 87/F Req #: [id number] Adm Physician: JL PACE MD Ordered by: RUEL STUART MD Report #: [id number] Location: MED/SURG2 Room/Bed: ____ Procedure: [id number] CT/CT BRAIN WO Exam Date: 05/26/14 Exam Time: 2056 REPORT STATUS: Signed EXAMINATION: Head CT without contrast. HISTORY: Fall. COMPARISON: None. TECHNIQUE: Multidetector axial images were obtained from the foramen magnum to the vertex without contrast. The images were reconstructed using brain and bone algorithms. Thin section brain images were reformatted into coronal and sagittal planes. Intravenous contrast: None IMAGE QUALITY: Acceptable. FINDINGS: Skull: No lytic or blastic. lesions. No surgical changes. Parenchyma: No abnormal density. Few nonspecific periventricular and subcortical white matter patchy hypodensities are likely relate to chronic small vessel ischemic changes. Generalized age-related cerebral volume loss. No acute intracranial bleed or midline shift. No mass or major vascular territorial infarct. Arteries: Mild atherosclerotic constipation of bilateral cavernous carotids. Dural sinuses: No abnormal density suggestive of thrombosis. Ventricles: No hydrocephalus or displacement. Extra-axial spaces: No abnormal density. Brain volume: Normal for age. Craniocervical junction: No mass, Chiari malformation, or basilar invagination. Sella: No mass. Paranasal/ mastoid sinuses: Moderate opacification of right maxillary sinus, status post antrostomy. Incidental finding: Degenerative changes of bilateral temporomandibular joints, left worse than right. IMPRESSION: No acute intracranial abnormality. Mild supratentorial small vessel ischemic changes. Age related cerebral volume loss. Moderate mucosal inflammatory changes in right maxillary sinus. Dictated By: IQRA GRADY MD 33 Transcribed By: CLAUDIA on 05/26/142132 COPY TO: RUEL STUART MD CT CERVICAL SPINE WO [place] [address] Patient Name: SANDRA CLEMONS MR #: [id number] : 1930 Age/Sex: 87/F Req #: [id number] Adm Physician: JL PACE MD Ordered by: RUEL STUART MD Report #: [id number] Location: MED/SURG2 Room/Bed: [facility] Procedure: CT/CT CERVICAL SPINE WO Exam Date: 05/26/14 Exam Time: 2057 REPORT STATUS: Signed History: Fall. Comparison studies: None Technique: Axial images were obtained through the cervical region.. Coronal and sagittal images reconstructed from the axial data.. Intravenous contrast: None Image quality: Suboptimal evaluation due to streak and motion artifacts. Findings: Fractures: None. Soft tissue injuries: None. Atlantoaxial articulation: Intact. Alignment: 2-mm grade 1 anterolisthesis at level C4 -- C5. Cervicomedullary junction: No abnormalities. The foramen magnum is patent. Soft tissues: No abnormalities. Vertebrae: No fractures, infection or neoplasm. Degenerative changes: C2 -- C3: Posterior disk osteophyte complex without significant canal stenosis. No significant foraminal stenosis. Advanced left facet arthrosis. C3 -- C4: Posterior disk osteophyte complex results in mild canal stenosis. Moderate right and mild left foramina stenosis due to facet and uncoarthrosis. C4 -- C5: Posterior disk osteophyte complex and ossification of posterior longitudinal ligament results in mild canal stenosis. Bilateral mild foraminal stenosis due to facet and uncoarthrosis. C5 -- C6: Posterior disk osteophyte complex and ossification of posterior longitudinal ligament results in moderate canal stenosis. Bilateral moderate foraminal stenosis due to facet and uncoarthrosis. C6 -- C7: Posterior disk osteophyte complex results in moderate canal stenosis. Bilateral moderate foraminal stenosis due to facet and uncoarthrosis. C7 - - T1: No significant canal or foraminal stenosis. Bilateral facet arthrosis. Incidental findin.1 x 0.9 cm hypodense nodule in left lobe of thyroid. IMPRESSION: 1. Anterolisthesis at level C4 -- C5 is likely degenerative. No acute fracture off the cervical spine. 1. Ligament, spinal cord and or vascular abnormalities cannot be excluded on the basis of this examination 2. Moderate cervical spondylitic changes as explained above. 3. Suboptimal evaluation due to streak and motion artifacts. Dictated By: IQRA GRADY MD 54 Transcribed By: CLAUDIA on 05/26/142153 COPY TO: RUEL STUART MD Stress Test - Treadmill ONLY [place] [address] Patient Name : SANDRA CLEMONS MR #: [id number] : 1930 Age/Sex: 87/F Adm Physician : JL PACE MD Admit Date : 12/12/13 Location : MED/SURG Room/Bed : [facility] REPORT: Cardiology Report DATE OF STUDY: December 15, 2013 NUCLEAR STRESS TEST Please see accompanying stress test report details by Dr. Salazar for further details. Rest and stress Myoview imaging was performed. The left ventricle appears to be dilated with moderately reduced systolic function. There is decreased tracer uptake in the inferior zones of the left ventricle on stress. The rest images are normal. CONCLUSIONS 1. Abnormal nuclear stress test showing mild area of inferior and posterior ischemia. 2. Left ventricular ejection fraction is 37% with mild inferior and posterior hypokinesis. Job#: [id number] cc: JL PACE MD Signature Date Dictated By: MEHDI HOLLIDAY MD Transcribed By: ANNELIESE on 12/20/13 <Electronically signed by MEHDI HOLLIDAY MD><<Signature on File>>12/21/13 3334 COPY TO: ECHO COMPLETE (ECHOCARDIOGRAM) [place] [address] Patient Name : SANDRA CLEMONS MR #: [id number] : 1930 Age/Sex: 87/F Adm Physician : JL PACE MD Admit Date : 12/12/13 Location : MED/SURG Room/Bed : [facility] REPORT: Cardiology Report DATE OF STUDY: December 13, 2013 ECHOCARDIOGRAM REPORT WITH DOPPLER ANALYSIS RESULTS 1. Left ventricular dimensions were within normal limits. The patient had mild concentric left ventricular hypertrophy. Overall, left ventricular contractility was reduced with an estimated ejection fraction in the range of 35%. There is moderate global hyperkinesis with a paradoxical septal wall motion towards the base of the heart (The patient does have a dual-chamber pacemaker in situ). There was no left ventricular mural thrombus identified. The patient had a mitral valve inflow pattern consistent with atrial flutter. 2. The aortic valve was trileaflet, but mildly sclerotic. Pressure gradient across the aortic valve was 11.9 mmHg. (No hemodynamically significant aortic stenosis observed). There is no significant aortic regurgitation noted. The aortic root dimensions were within normal limits. 3. The mitral valve showed mild mitral aortic calcification. The valve itself appeared to open and close normally. There was trace to very mild mitral regurgitation noted. The left atrial dimensions remain within normal limits. 4. The patient did have mild trivial tricuspid regurgitation. There is no significant pulmonic regurgitation identified. The estimated pulmonary arterial systolic pressure was up to 28 mmHg. (within normal limits). The right ventricular dimensions were at the upper limits of normal. There was dual-chamber pacemaker lead noted traversing across the tricuspid valve towards the right ventricular apex. There is a nodular lead noted in the right atrium. 5. No significant pericardial effusion identified. IMPRESSION 1. Reduced left ventricular systolic function with estimated ejection fraction of 35%. There was mild concentric left ventricular hypertrophy, but she was in an atrial flutter rhythm with ventricular pacing at the time of the study. No left ventricular mural thrombus identified. 2. The patient was in a ventricular paced rhythm. There was paradoxical septal wall motion as noted above towards the base of the heart. 3. Mild aortic sclerosis without any hemodynamic significant aortic stenosis. No regurgitation. 4. Trace trivial mild mitral regurgitation across the grossly normal mitral valve. There was, however, mild mitral annular calcification. 5. Normal pulmonary arterial systolic pressure with paced systolic pressure of 28 mmHg. There was trivial tricuspid regurgitation noted across grossly normal tricuspid valve. 6. No significant pericardial effusion. Job#: [id number] cc: JL PACE MD Signature Date Dictated By: YOUNG SALAZAR MD Transcribed By: EDS on 12/13/13 <Electronically signed by YOUNG SALAZAR MD><<Signature on File>>12/24/13 1145 COPY TO: CHEST 2 VIEWS [place] [address] Patient Name: SANDRA CLEMONS MR #: [id number] : 1930 Age/Sex: 87/F Req #: [id number] Adm Physician: JL PACE MD Ordered by: MARILIN GRANT MD Report #: [id number] Location: MED/SURG Room/Bed: [facility] ____ Procedure: [id number] DX/CHEST 2 VIEWS Exam Date: 12/12/13 Exam Time: 0703 REPORT STATUS: Signed PROCEDURE: Frontal and lateral views of the chest. COMPARISON: Portable chest 2012. INDICATIONS: SHORTNESS OF BREATH FINDINGS: Lines/tubes : Left chest cardiac device with leads projecting over the expected regions of the right atrium and ventricle. Lungs: Multifocal bilateral airspace opacifications. Pleura: There is no pleural effusion or pneumothorax. Heart and mediastinum: The heart and the mediastinum are normal. Bones: No acute bony abnormality. IMPRESSION: Multifocal bilateral airspace opacifications. Dictated by: Matteo Baca M.D. on 12/12/2013 at 7 :34 Electronically approved by: Matteo Baca M.D. on 12/12/2013 at 7:34 Dictated By: MATTEO BACA MD [id number] Transcribed By: LUCIANO on 12/12/13 0734 COPY TO : MARILIN GRANT MD US RETROPERITONEAL (KIDNEY) [place] [address] Patient Name: SANDRA CLEMONS MR #: [id number] : 1930 Age/Sex: 87/F Req #: [id number] Adm Physician: JL PACE MD Ordered by: KIKI ARNOLD, MCKINLEY ARNOLD Report #: [id number] Location: MED/SURG2 Room/Bed: [facility] Procedure: [id number] US/US RETROPERITONEAL (KIDNEY) Exam Date: 05/02/13 Exam Time: 1745 REPORT STATUS: Signed PROCEDURE: US RENAL (KIDNEY) COMPARISON: None. INDICATIONS: CHRONIC KIDNEY DISEASE, INCONTINENCE FINDINGS: Very limited exam due to large patient body habitus. RIGHT KIDNEY: Measures 9.9 x 5.8 cm, cortex 1.2 cm Cysts: Lower pole right renal cyst measures 2.9 x 2.9 x 2.3 CM. Second lower pole right renal cyst measures 1.5 x 1.4 x 1.7 CM. Solid masses: None visualized. Stones: No sonographic evidence of nephrolithiasis. Hydronephrosis: Not present Echogenicity: Within normal limits LEFT KIDNEY: Measures 8.2 x 3.7 cm, cortex 1.0 cm Cysts: In the mid left kidney there is a 2.4 x 2.3 x 1.8 CM cyst. Solid masses: None visualized Stones: No sonographic evidence of nephrolithiasis Hydronephrosis : Not present Echogenicity: Within normal limits Bladder: Incompletely distended bladder appears grossly unremarkable and measures 5.2 x 6.1 x 5.6 CM corresponding to a bladder volume of 94 mL. Bladder is suboptimally visualized due to the large patient body habitus. Post void residual of 1.5 mL. CONCLUSION: This exam is limited due to large patient body habitus which impairs ideal visualization of some renal cysts. Specifically the upper pole 2.4 x 2.3 x 1.8 cm likely renal cysts may contain internal echoes versus artifact caused by to large patient body habitus. Despite reported chronic renal disease the renal parenchymal echogenicity appears to be upper limits of normal sonographically. Dictated by: Heath Eaton M.D. on 05/02/2013 at 19:23 Electronically approved by: Heath Eaton M.D. on 05/02/2013 at 19:23 Dictated By: HEATH EATON MD 15 Transcribed By: LUCIANO on 05/02/131922 COPY TO: MCKINLEY SWANSON PELVIC (NON OB) JANSEN OR F/U [place] [address] Patient Name: SANDRA CLEMONS MR #: [id number] : 1930 Age/Sex: 87/F Req #: [id number] Adm Physician: JL PACE MD Ordered by: JL PACE MD Report #: [id number] Location: [facility] Room/Bed: 210 Procedure: [id number] US/US PELVIC (NON OB) JANSEN OR F/U Exam Date: 05/02/13 Exam Time: 1745 REPORT STATUS: Signed PROCEDURE: URINARY BLADDER ULTRASOUND COMPARISON: None. INDICATIONS: CHRONIC KIDNEY DISEASE, INCONTINENCE FINDINGS: See conclusion. CONCLUSION: Please refer to renal ultrasound for full dictated report. Dictated by: Heath Eaton M.D. on 05/02/2013 at 19: 23 Electronically approved by: Heath Eaton M.D. on 05/02/2013 at 19:23 Dictated By: HEATH EATON MD 15 Transcribed By: LUCIANO on 05/02/131922 COPY TO: JL PACE MD ECHO COMPLETE (ECHOCARDIOGRAM) [place] [address] Patient Name : SANDRA CLEMONS MR #: [id number] : 1930 Age/Sex: 87/F Adm Physician : JL PACE MD Admit Date : 04/28/13 Location : MED/SURG2 Room/Bed : [facility] REPORT: Cardiology Report DATE OF STUDY: April 29, 2013 ECHOCARDIOGRAM AND DOPPLER ANALYSIS 1. Left ventricular dimensions were within normal limits. The left ventricular wall thickness showed mild concentric left ventricular hypertrophy. Overall, left ventricular contractility was reduced with mild global hypokinesis. Estimated left ejection fraction was within the range of 40% to 45%. There is also evidence of left ventricular diastolic dysfunction based on mitral inflow pattern. 2. The aortic valve was trileaflet but sclerotic. There is not hemodynamically significant aortic stenosis, but the patient did have mild aortic regurgitation. Aortic root dimensions remained within normal limits. 3. The mitral valve appeared to open and close normally. The patient did have mild mitral regurgitation directed posterolaterally. The left atrial dimensions remained within normal limits. 4, The patient did have true tricuspid regurgitation. Estimated pulmonary artery systolic pressure was, in fact, within normal limits at 38.9 mmHg. The pulmonic valve was suboptimally visualized for comment. The right ventricular dimensions did show mild enlargement diameter of 3.2 cm. 5. The patient did not have any significant pericardial effusion. 6. There was a pacemaker lead noted traversing the tricuspid valve extending towards the right ventricular apex. There was, however, a clear space anteriorly between the epicardium and pericardium, most likely consistent with pericardial fat pad. 7. There was a pacemaker lead noted to rest between the tricuspid valve extending towards the right ventricular apex. IMPRESSION 1. Mildly reduced left ventricular systolic function with estimated ejection fraction of 40% to 45%. There was also marked left ventricular hypertrophy and there was left ventricular diastolic dysfunction. 2. Mild aortic sclerosis with mild aortic regurgitation. There is no hemodynamically significant aortic stenosis. 3. Mild mitral regurgitation directed posterolaterally. Grossly normal mitral valve. 4. Normal pulmonary artery systolic pressure with true tricuspid regurgitation. 5. Pacemaker lead visualized. DD: 2012 17:18 Job#: [id number] Signature Date Dictated By: YOUNG SALAZAR MD Transcribed By: [facility] on 05/01/13 <Electronically signed by YOUNG SALAZAR MD><<Signature on File>>05/20/13 1046 COPY TO: CHEST [facility] (PORTABLE) [place] [address] Patient Name: SANDRA CLEMONS MR #: [id number] : 1930 Age/Sex: 87/F Req #: [id number] Adm Physician: JL PACE MD Ordered by: RUEL STUART MD Report #: [id number] Location: MED/SURG2 Room/Bed: 210 Procedure: DX/CHEST SINGLE (PORTABLE) Exam Date: 04/28/13 Exam Time: 0318 REPORT STATUS: Signed Examination: Single AP view of the chest. COMPARISON: Chest radiograph on 04/05/13 INDICATION: Shortness of breath DISCUSSION: Lines/tubes: Dual lead pacemaker device in the left upper hemithorax with leads overlying the expected course of the right atrium and right ventricular apex. Leads appear intact. There is a 3rd lead overlying the right atrium. Lungs: Worsening interstitial edema. No consolidations. Pleura: There is no pleural effusion or pneumothorax. Heart and mediastinum: Mild cardiomegaly, unchanged. The mediastinum is unremarkable. Bones and soft tissues: No acute bony abnormalities. IMPRESSION: Stable mild cardiomegaly with worsening interstitial edema when compared to 04/05/13. Dictated By: VINICIUS SMITH MD 4 Transcribed By: CLAUDIA on 04/28/13 0400 COPY TO: RUEL STUART MD CHEST SINGLE (PORTABLE) [place] [address] Patient Name: SANDRA CLEMONS MR #: [id number] : 1930 Age/Sex: 87/F Req #: [id number] Adm Physician: Ordered by: YOUNG SALAZAR MD Report #: [id number] Location: [facility] Room/Bed: Procedure: [id number] DX/CHEST SINGLE (PORTABLE) Exam Date: 04/05/13 Exam Time: 1500 REPORT STATUS: Signed PROCEDURE: A single AP view of the chest. COMPARISON: None. INDICATIONS: POST PACEMAKER REPLACEMENT IMPRESSION: 1. triple lead cardiac pacemaker in the left upper chest, with the distal tips located in the right ventricle, right atrium and possibly coronary sinus. 2. Lungs are grossly clear, without consolidation or effusion. No pneumothorax. 3. Pulmonary vasculature is normal. Cardiac silhouette is unremarkable. 4. No acute bony abnormalities. Chris Martinez M.D. Dictated by: Chris Martinez M.D. on 04/05/2013 at 16:32 Electronically approved by: Chris Martinez M.D. on 04/05/2013 at 16:32 Dictated By: CHRIS MARTINEZ MD 1626 Transcribed By: LUCIANO on 04/05/13 1632 COPY TO: YOUNG SALAZAR MD
[2017-11-17] MEDS ORDERED: ONDANSETRON HCL INJ 2 MG/ML VIAL IV STA (15:55)
[2017-11-17] MEDS ORDERED: SODIUM CHLORIDE 0.9% 1000ML 1,000 ML IV ONE (16:00)
[2017-11-17] MEDS ORDERED: KETOROLAC TROMETHAMINE 30 MG/ML VIAL IV STA (16:35)
[2017-11-17] MEDS ORDERED: DEXAMETHASONE SOD PHOS 10 MG/1 ML VIAL IV ONE (16:45)
[2017-11-17] MEDS ORDERED: CLINDAMYCIN PHOS 900MG/ D5W 50 50 ML IV ONE (17:15)
[2017-11-17 17:21] LABS: BASOPHILS % 0.2 % (0.0-1.0); EOSINOPHILS # (AUTO) 0.1 (0.0-0.4); HEMATOCRIT 29.4 % (34.2-44.1); HEMOGLOBIN 9.5 g/dL (12.0-16.0); LYMPHOCYTES # (AUTO) 0.5 (1.0-3.2); LYMPHOCYTES % 5.1 % (18.0-39.1); MEAN CORPUSCULAR HEMOGLOBIN 29.7 pg (28-32); MEAN CORPUSCULAR HGB CONC 32.3 g/dL (31-35); MEAN CORPUSCULAR VOLUME 91.9 fL (81-99); MONOCYTES # (AUTO) 0.4 (0.2-0.8); MONOCYTES % 3.9 % (4.4-11.3); NEUTROPHILS # (AUTO) 9.4 (2.1-6.9); PLATELET COUNT 175 x10e3/uL (140-360); RED CELL DISTRIBUTION WIDTH 14.8 % (11.7-14.4)
[2017-11-17 17:23] LABS: BILIRUBIN,URINE NEGATIVE (NEGATIVE); CLARITY,URINE SL CLOUDY (CLEAR); COLOR,URINE YELLOW (YELLOW); KETONES,URINE NEGATIVE (NEGATIVE); LEUKOCYTE ESTERASE ,URINE NEGATIVE (NEGATIVE); NITRITE,URINE NEGATIVE (NEGATIVE); PROTEIN,URINE DIPSTICK NEGATIVE (NEGATIVE); URINE UROBILINOGEN 0.2 mg/dL (0.2 - 1)
[2017-11-17 17:34] LABS: WBC,URINE (MAN) 0-5 /HPF (0-5)
[2017-11-17 17:35] LABS: BACTERIA,URINE FEW /HPF; EPITHELIAL CELLS,URINE FEW /LPF; HYALINE CASTS 0-1 (0-1)
[2017-11-17 17:39] LABS: ALBUMIN 2.6 g/dL (3.5-5.0); ALBUMIN/GLOBULIN RATIO 0.6 (0.8-2.0); ANION GAP 15.1 mmol/L (8-16); CREATININE, SERUM 2.53 mg/dL (0.57-1.11); MAGNESIUM 1.4 MG/DL (1.3-2.1); PHOSPHORUS 2.5 MG/DL (2.3-4.7); POTASSIUM 4.1 mmol/L (3.5-5.1)
--- NOTE | 2017-11-17 17:56 | Diagnostic Imaging Report ---
PROCEDURE: A single AP view of the chest. COMPARISON: None. INDICATIONS: SHORTNESS OF BREATH FINDINGS: Lines/tubes: Left upper chest multilead cardiac devices. Lungs: The lungs are well inflated and the grossly clear. There is no evidence of pneumonia or pulmonary edema. Pleura: There is no pleural effusion or pneumothorax. Heart and mediastinum: Mild prominence of the cardiac silhouette which may be partly due to AP projection. Pulmonary vascular tree is normal. Bones: Medial displacement of the right humeral head in relationship to the glenoid. No acute displaced fracture or dislocation. IMPRESSION: 1. No acute cardiopulmonary disease. 2. Findings in the right shoulder may reflect subluxation or humeral dislocation. Please refer to dedicated shoulder x-rays performed same date for further detail. Chris Koenig M.D. Dictated by: Chris Koenig M.D. on 11/17/2017 at 17:56 Electronically approved by: Chris Koenig M.D. on 11/17/2017 at 17:56
[2017-11-17 17:59] LABS: THYROID STIMULATING HORMONE 1.545 uIU/mL (0.350-4.940)
[2017-11-17] MEDS ORDERED: SODIUM CHLORIDE FLUSH 10 ML SYR INJ PRN (19:00)
[2017-11-17] MEDS ORDERED: ONDANSETRON HCL INJ 2 MG/ML VIAL IV PRN (19:00)
--- NOTE | 2017-11-17 19:01 | Diagnostic Imaging Report ---
PROCEDURE:X-RAY RIGHT SHOULDER, COMPLETE COMPARISON:None. INDICATIONS:SHOULDER PAIN FINDINGS: Mild osteopenia. There is medial displacement of the right femoral head in relation to the glenoid, with almost infra-coracoid position. No acute displaced fracture Degenerative changes in the acromio clavicular joint. Soft tissues are grossly unremarkable. CONCLUSION: Findings may represent an glenohumeral joint dislocation in the setting of trauma, versus marked subluxation. No acute, displaced fracture is noted. Chris Koenig M.D. Dictated by: Chris Koenig M.D. on 11/17/2017 at 19:00 Electronically approved by: Chris Koenig M.D. on 11/17/2017 at 19:00
[2017-11-17] MEDS ORDERED: SODIUM CHLORIDE 0.9% 1000ML 1,000 ML ONE (19:19)
[2017-11-17] MEDS: SODIUM CHLORIDE 0.9% 1000ML 1,000 ML IV SCH (19:23)
[2017-11-17 21:17] VITALS: BP 124/53
[2017-11-17 22:00] VITALS: BP 124/53
[2017-11-18] VITALS (7 sets, daily range): BP systolic 99–124; BP diastolic 5–71
[2017-11-18 06:09] LABS: BASOPHILS % 0.1 % (0.0-1.0); HEMATOCRIT 27.2 % (34.2-44.1); HEMOGLOBIN 8.7 g/dL (12.0-16.0); LYMPHOCYTES # (AUTO) 0.5 (1.0-3.2); MEAN CORPUSCULAR HEMOGLOBIN 29.8 pg (28-32); MEAN CORPUSCULAR VOLUME 93.2 fL (81-99); MONOCYTES # (AUTO) 0.1 (0.2-0.8); MONOCYTES % 0.5 % (4.4-11.3); NEUTROPHILS # (AUTO) 8.6 (2.1-6.9); NEUTROPHILS % 92.6 % (38.7-80.0); PLATELET COUNT 154 x10e3/uL (140-360); RED BLOOD COUNT 2.92 x10e6/uL (3.6-5.1); RED CELL DISTRIBUTION WIDTH 14.8 % (11.7-14.4)
[2017-11-18 06:30] LABS: ANION GAP 15.5 mmol/L (8-16); CALCIUM 8.5 mg/dL (8.4-10.2); CREATININE, SERUM 2.68 mg/dL (0.57-1.11); POTASSIUM 4.5 mmol/L (3.5-5.1)
[2017-11-18] MEDS: CEFTRIAXONE SOD 1 GM VIAL IV SCH (07:15)
[2017-11-18] MEDS: SODIUM CHLORIDE 0.9% 1000ML 1,000 ML IV SCH ×2 (07:15→13:36)
[2017-11-18] MEDS: LIOTHYRONINE SODIUM 5 MCG TAB PO SCH (07:30)
[2017-11-18 08:55] LABS: LYMPHOCYTES % (MANUAL) 4 % (19-48); MONOCYTES % (MANUAL) 3 % (3.4-9.0); MYELOCYTES % (MANUAL) 1 % (0-0); NEUTROPHILS % (MANUAL) 91 % (40-74); PLATELET ESTIMATE SLIGHTLY DECREASED; PLATELET MORPHOLOGY COMMENT FEW LARGE
[2017-11-18 08:56] LABS: ANISOCYTOSIS SLIGHT; HYPOCHROMASIA SLIGHT; RBC MORPHOLOGY COMMENT NORMAL
[2017-11-18] MEDS ORDERED: CALCITRIOL 0.5 MCG CAP PO SCH (09:00)
[2017-11-18] MEDS: AMIODARONE HCL 200 MG TAB PO SCH (09:39)
[2017-11-18] MEDS: CITALOPRAM HYDROBROMIDE 20 MG TAB PO SCH (09:39)
[2017-11-18] MEDS: ASPIRIN 81 MG CHEW TAB PO SCH (09:39)
[2017-11-18] MEDS: CALCITRIOL 0.25 MCG CAP PO SCH (09:40)
[2017-11-18] MEDS: ESTRADIOL 1 MG TAB PO SCH (09:40)
[2017-11-18] MEDS: FUROSEMIDE 40 MG TAB PO SCH ×2 (09:40→16:15)
[2017-11-18] MEDS: ALLOPURINOL 300 MG TAB PO SCH (09:40)
[2017-11-18] MEDS: ROPINIROLE HCL 1 MG TAB PO SCH ×2 (09:40→16:15)
[2017-11-18] MEDS: CARVEDILOL 10 MG CAPCR PO SCH (09:40)
[2017-11-18] MEDS: DOXYCYCLINE HYCLATE TABLET 100 MG TAB PO SCH ×2 (09:40→16:15)
[2017-11-18] MEDS: FOLIC ACID 1 MG TAB PO SCH (09:40)
--- NOTE | 2017-11-18 15:03 | Consultation ---
DATE OF CONSULTATION: November 18, 2017 CHIEF COMPLAINT: Right shoulder and arm pain. HISTORY OF PRESENT ILLNESS: The patient is a medically frail, 87-year-old lady who reports a several-month history of right arm pain. She states the pain has become more severe in the last 3 weeks. She has taken Tylenol No. 3 without relief. She denies any history of trauma. She states it is difficult to raise her right arm. She walks with a walker, and it is difficult to use a walker with her right arm. She is presently admitted to the hospital with a diagnosis of cellulitis of her right arm. Orthopedic consultation was requested. PAST MEDICAL HISTORY: Please see admission H and P. She has a history of chronic kidney disease, hypertension, hypothyroidism and increased cholesterol. MEDICATIONS: See medication reconciliation list. SOCIAL HISTORY: She does not smoke. She rarely drinks alcohol. She is and lives in an assisted living facility. She has 2 children in the [facility] area. She used to drive a car up until about 1 year ago. PHYSICAL EXAMINATION: She is awake, alert and oriented. She is in no obvious distress. Both upper and lower extremities demonstrate very thin and frail skin. There is extensive blotchy bruising, more so in the right and left upper extremities than the legs. She has a dry eschar over the anterior aspect of the right leg. There is no surrounding cellulitis. She has fluid range of motion of her elbow. She has generalized muscle deconditioning and atrophy. There is no anterior or posterior fullness of the right shoulder. She has passive elevation to about 80 degrees and active elevation to 60 degrees. There is no marielena dislocation or subluxation with stress testing. Exam is somewhat compromised secondary to discomfort. She has globally diminished strength. LABORATORY STUDIES: X-rays were carefully reviewed. One x-ray of the shoulder shows some anterior subluxation. The other x-ray shows concentric reduction of the shoulder. There is no evidence of an acute fracture. IMPRESSION: Right shoulder chronic rotator cuff tear. The findings were explained to the patient. I believe the x-ray's suggestion of subluxation or dislocation is secondary to the projection of the x-ray. There is no clinical history nor clinic exam consistent with a dislocation. She has diffuse shoulder pain. I discussed the options and suggested we try a corticosteroid injection. She is agreeable. We will get the medicine together and do this later today or tomorrow morning. I do not anticipate any further orthopedic intervention. Thank you for the consultation. Job#: [id number] TONY
[2017-11-18] MEDS: SIMVASTATIN 20 MG TAB PO SCH (21:51)
[2017-11-19] VITALS: BP 135/60
[2017-11-19] MEDS: SODIUM CHLORIDE 0.9% 1000ML 1,000 ML IV SCH ×3 (00:53→20:53)
[2017-11-19 04:00] VITALS: BP 183/72
[2017-11-19] MEDS: CARVEDILOL 10 MG CAPCR PO SCH (05:14)
[2017-11-19] MEDS: CEFTRIAXONE SOD 1 GM VIAL IV SCH (05:15)
[2017-11-19] MEDS: LIOTHYRONINE SODIUM 5 MCG TAB PO SCH (07:25)
[2017-11-19 08:00] VITALS: BP 133/74
[2017-11-19] MEDS: AMIODARONE HCL 200 MG TAB PO SCH (09:16)
[2017-11-19] MEDS: CITALOPRAM HYDROBROMIDE 20 MG TAB PO SCH (09:16)
[2017-11-19] MEDS: FOLIC ACID 1 MG TAB PO SCH (09:16)
[2017-11-19] MEDS: ALLOPURINOL 300 MG TAB PO SCH (09:16)
[2017-11-19] MEDS: DOXYCYCLINE HYCLATE TABLET 100 MG TAB PO SCH ×2 (09:16→16:59)
[2017-11-19] MEDS: ASPIRIN 81 MG CHEW TAB PO SCH (09:16)
[2017-11-19] MEDS: FUROSEMIDE 40 MG TAB PO SCH ×2 (09:16→16:59)
[2017-11-19] MEDS: CALCITRIOL 0.25 MCG CAP PO SCH (09:16)
[2017-11-19] MEDS: ROPINIROLE HCL 1 MG TAB PO SCH ×2 (09:16→16:59)
[2017-11-19] MEDS: ESTRADIOL 1 MG TAB PO SCH (09:16)
[2017-11-19 10:23] VITALS: BP 133/74
[2017-11-19 12:00] VITALS: BP 120/67
[2017-11-19 16:00] VITALS: BP 116/66
[2017-11-19] MEDS: SIMVASTATIN 20 MG TAB PO SCH (22:11)
[2017-11-20] MEDS: CEFTRIAXONE SOD 1 GM VIAL IV SCH (06:33)
[2017-11-20 08:00] VITALS: BP 151/70
[2017-11-20] MEDS: DOXYCYCLINE HYCLATE TABLET 100 MG TAB PO SCH (08:12)
[2017-11-20] MEDS: ROPINIROLE HCL 1 MG TAB PO SCH (08:12)
[2017-11-20] MEDS: FOLIC ACID 1 MG TAB PO SCH (08:12)
[2017-11-20] MEDS: AMIODARONE HCL 200 MG TAB PO SCH (08:12)
[2017-11-20] MEDS: CITALOPRAM HYDROBROMIDE 20 MG TAB PO SCH (08:12)
[2017-11-20] MEDS: CALCITRIOL 0.25 MCG CAP PO SCH (08:12)
[2017-11-20] MEDS: ALLOPURINOL 300 MG TAB PO SCH (08:12)
[2017-11-20] MEDS: LIOTHYRONINE SODIUM 5 MCG TAB PO SCH (08:12)
[2017-11-20] MEDS: FUROSEMIDE 40 MG TAB PO SCH (08:12)
[2017-11-20] MEDS: CARVEDILOL 10 MG CAPCR PO SCH (08:12)
[2017-11-20] MEDS: ESTRADIOL 1 MG TAB PO SCH (08:12)
[2017-11-20] MEDS: ASPIRIN 81 MG CHEW TAB PO SCH (08:12)
[2017-11-20] MEDS ORDERED: CEPHALEXIN 500 MG CAP PO SCH (14:00)
== END 2017-11-20 10:51 | disposition home or self-care (01) | DRG 558 ==
LOC: ER 15:24 → ERHOLD 18:53 → MED/SURG2 19:44
PROVIDERS: ADMIT Internal Medicine; ATTEND Internal Medicine
PROC: 3E0U33Z Introduction of Anti-inflammatory into Joints, Percutaneous Approach (ICD-10-PCS; principal; 2017-11-18)
DX: M75.101 Unspecified rotator cuff tear or rupture of right shoulder, not specified as traumatic (principal); L03.115 Cellulitis of right lower limb; N18.3 Chronic kidney disease, stage 3 (moderate); L03.113 Cellulitis of right upper limb; I12.9 Hypertensive chronic kidney disease with stage 1 through stage 4 chronic kidney disease, or unspecified chronic kidney disease; E03.9 Hypothyroidism, unspecified; D64.9 Anemia, unspecified; Z79.82 Long term (current) use of aspirin
CPT/HCPCS: 36415; 51700; 71045; 80048; 80053; 81001; 83690; 83735; 84100; 84443; 85025; 99284; J0696; J1100; J1885; J2405; J7030

== ENCOUNTER 2017-11-20 20:48 | Emergency (ER) | payer MEDICARE, OTHER ==
[~2017-11-20] VITALS: Ht 327.7 cm; Wt 78.0 kg
--- OUTSIDE RECORDS SUMMARY | 2017-11-20 20:52 | XMS REPORT | Continuity of Care Document ---
Author Author [facility] Organization [facility] Address [address] [place] [address] Phone Unavailable Care Team Providers Care Construction Safety Consultant Name Role Phone JL PACE MD PCP Insurance Providers Guarantor Micaela Clemons Address [address] [place] [address] Email [email or web address] Payer [employer] Hmo Policy Number [id number] Subscriber's Name Micaela Clemons Relationship 18 Self / Same As Patient Group Number [id number] Group Name [employer] Effective Date 09 Payer Medicare A & B Policy Number [id number] Subscriber's Name Micaela Clemons Relationship 18 Self / Same As Patient Group Number [id number] Group Name RETIRED Effective Date 96 Advance Directives Directive Response Recorded Date/Time Does the patient have an advance directive? Yes 07/15/17 5:09am If yes, is advance directive on file with [facility]? No 07/15/17 5:09am If not on file with [facility] will patient provide a copy? Yes 07/15/17 5:09am Do you have a Directive to Physician? No 11/17/17 3:55pm Do you have a Medical Power of Audio Visual Aids Director? No 11/17/17 3:55pm Do you have an out of hospital Do Not Resuscitate Order? No 11/17/17 3:55pm Do you have any special needs we should be aware of? No 11/17/17 3:55pm Do you have a support person here with you today? Yes 11/17/17 3:55pm Did patient receive Notice of Privacy Practices? Yes 11/17/17 3:55pm Did patient receive patient rights and responsibilities? Yes 11/17/17 3:55pm Problems Medical Problem Onset Date Status CKD (chronic kidney disease) Unknown CKD (chronic kidney disease) Unknown Cellulitis of arm, left Unknown Cellulitis of leg 05/26/2014 Acute Chronic arthritis Unknown Acute Chronic neck pain Unknown Acute Dehydration 05/26/2014 Acute Diarrhea Unknown Hip pain Unknown Hypotension Unknown Lower GI bleed Unknown Renal failure (ARF), acute on chronic Unknown Sepsis Unknown UTI (urinary tract infection) Unknown Vomiting 05/26/2014 Acute Medications Current Home Medications Medication Dose Units Route Directions Days Qty Instructions Start Date Allopurinol 300 Mg Tablet 300 Mg Oral Daily 30 Tab Amiodarone Hcl (Pacerone) 100 Mg Tablet 200 Mg Oral Daily Aspirin 81 Mg Tab.chew 81 Mg Oral Daily Calcitriol 0.5 Mcg Cap 0.5 Mcg Oral Daily Carvedilol Phosphate (Coreg Cr) 80 Mg Cpmp.24hr 25 Mg Oral Daily Citalopram Hydrobromide (Celexa) 20 Mg Tablet 20 Mg Oral Daily Doxycycline Hyclate 100 Mg Capsule 100 Mg Oral Twice A Day 10 Days 20 Cap Estradiol 1 Mg Tab 0.5 Mg Oral Daily 30 Tab Fish Oil/Fat No.8/Hrb Comb.137 ([place] 3-6-9 1,200 Mg Softgel) 1,200 Mg Capsule 2,400 Mg Oral Twice A Day Folic Acid 1 Mg Tablet 1 Mg Oral Daily 30 Tab Furosemide (Lasix) 40 Mg Tablet 40 Mg Oral Twice A Day Hydrocodone Bit/Acetaminophen (Hydrocodon-Acetaminophen 5-500) 1 Each Capsule 1 Tab Oral Twice A Day Liothyronine Sodium (Cytomel) 5 Mcg Tablet 5 Mcg Oral Daily Ropinirole Hcl 1 Mg Tablet 1 Mg Oral Twice A Day Simvastatin 20 Mg Tablet 20 Mg Oral Bedtime Temazepam 30 Mg Capsule 30 Mg Oral Bedtime Past Home Medications Medication Directions Ordered Status Amiodarone Hcl 200 Mg Tablet, 100 Mg Oral Daily Discontinued Colestipol Hcl (Colestid) 1 G Tab, 1 G Oral Daily Discontinued Doxycycline Hyclate 100 Mg Capsule, 100 Mg Oral Twice A Day Discontinued Estrogens, Conjugated (Premarin) 0.9 Mg Tablet, 0.9 Mg Oral Daily Discontinued Estrogens, Conjugated (Premarin) 1.25 Mg Tablet, 0.9 Mg Oral Daily Discontinued Ezetimibe (Zetia) 10 Mg Tablet, 10 Mg Oral Daily Discontinued Febuxostat (Uloric) 80 Mg Tablet, 80 Mg Oral Daily Discontinued Hydroxychloroquine Sulfate 200 Mg Tablet, 200 Mg Oral Twice A Day Discontinued Potassium Chloride (K Dur*) 10 Meq Tabcr, 10 Meq Oral Daily Discontinued Prednisone 5 Mg Tab.ds.pk, 5 Mg Oral Daily Discontinued Sulfamethoxazole/Trimethoprim (Bactrim Ds Tablet) 1 Each Tablet, 1 Tab Oral Twice A Day Discontinued Sulfamethoxazole/Trimethoprim (Bactrim Ds Tablet) 1 Each Tablet, 1 Tab Oral Twice A Day Discontinued Sulfasalazine (Sulfasalazine Dr) 500 Mg Tablet.dr, 500 Mg Oral Twice A Day Discontinued Family History Relationship Condition Age at Onset Recorded Date/Time 19 Daughter Family history of coronary artery disease Not Recorded 2016 12:19am 33 Father Family history of hypertension Not Recorded 12/11/2016 12:19am 32 Mother Family history of coronary artery disease Not Recorded 12/11/2016 12:19am Social History Social History Problem Response Recorded Date/Time Onset Date Status Hx Psychiatric Problems No 11/18/2017 4:32am Not Applicable Not Applicable Hx Eating Disorder No 11/18/2017 4:32am Not Applicable Not Applicable Hx Substance Use Disorder No 11/18/2017 4:32am Not Applicable Not Applicable Hx Depression No 07/15/2017 5:09am Not Applicable Not Applicable Hx Alcohol Use No 11/18/2017 4:32am Not Applicable Not Applicable Hx Substance Use Treatment No 11/18/2017 4:32am Not Applicable Not Applicable Hx Physical Abuse No 11/18/2017 4:32am Not Applicable Not Applicable Smoking Status Start Date Stop Date Never Smoker Hospital Discharge Instructions No hospital discharge instruction information available. Plan of Care Discharge Date 11/20/17 10:51am Disposition HOME, SELF-CARE Instructions/Education Provided Cellulitis Prescriptions See Medication Section Referrals JL APCE MD (Internal Medicine) Order Date: 5-7 Days Entered Date: 11/20/2017 10:38am Address: [address] [place] [id number] Additional Instructions/Education Renal Diet Activity as tolerated Transfer back to [facility] Functional Status Query Response Date Recorded Assistive Devices None November 17, 2017 10:00pm Ambulation Ability Maximum Assistance November 17, 2017 10:00pm Toileting Ability Moderate Assistance November 20, 2017 9:12am Allergies, Adverse Reactions, Alerts Allergen Type Severity Reaction Status Last Updated Hydrocodone Allergy Mild Active 11/17/17 Immunizations No immunization information available. Vital Signs Acute Vital Signs Vital Response Date/Time Temperature (Fahrenheit) 96.4 degrees F (97.6 - 99.5) 11/20/2017 8:00am Pulse Pulse Rate (adult) 75 bpm (60 - 90) 11/20/2017 8:00am Respiratory Rate 19 bpm (12 - 24) 11/20/2017 8:00am Blood Pressure 151/70 mm Hg 11/20/2017 8:00am Height 5 ft 9 in 11/17/2017 3:26pm Weight 172 lb 11/17/2017 3:26pm Body Mass Index 25.4 kg/m^2 11/18/2017 4:32am Results Laboratory Results Test Name Result Units Flags Reference Collection Date/Time Result Date/ Time Comments Bedside Glucose 70 mg/dL 70-120 05/23/2017 5:25pm 05/23/2017 5:33pm Meter ID: [id number] Random Vancomycin Level 22.8 ug/mL 05/28/2017 6:11am 05/28/2017 7: 20am Band Neutrophils % 1 % 07/15/2017 7:47am 07/15/2017 8:22am Metamyelocytes % 1 % H 0-0 07/15/2017 7:47am 07/15/2017 8:22am Target Cells FEW 07/15/2017 7:47am 07/15/2017 8:38am Prothrombin Time 13.6 seconds 11.9-14.5 07/14/2017 11:50pm 07/15/2017 12:17am Prothromb Time International Ratio 0.99 07/14/2017 11:50pm 2016 12:17am Oral Anticoagulant Therapy INR Values: 1. Low Intensity Therapy 1.5 - 2.0 2. Moderate Intensity Therapy 2.0 - 3.0 3. High Intensity Therapy(1) 2.5 - 3.5 4. High Intensity Therapy(2) 3.0 - 4.0 5. Panic Value INR > 5.0 Activated Partial Thromboplast Time 29.7 seconds 23.8-35.5 07/14/2017 11 :50pm 07/15/2017 12:17am Ammonia 42 UG/DL 31-123 07/22/2017 7:09am 07/22/2017 7:50am Creatine Kinase 676 IU/L H 29-168 07/14/2017 11:50pm 07/15/2017 12:23am Creatine Kinase MB 22.20 ng/mL H 0.00-5.00 07/14/2017 11:50pm 2016 12:31am Troponin I 0.085 ng/mL 0-0.300 07/14/2017 11:50pm 07/15/2017 12:31am Stool Occult Blood POSITIVE H NEGATIVE 07/15/2017 1:30am 07/15/2017 1: 43am White Blood Count 9.25 x10e3/uL 4.8-10.8 11/18/2017 5:39am 11/18/2017 6 :31am Red Blood Count 2.92 x10e6/uL L 3.6-5.1 11/18/2017 5:39am 11/18/2017 6: 31am Hemoglobin 8.7 g/dL L 12.0-16.0 11/18/2017 5:39am 11/18/2017 6:31am Hematocrit 27.2 % L 34.2-44.1 11/18/2017 5:39am 11/18/2017 6:31am Mean Corpuscular Volume 93.2 fL 81-99 11/18/2017 5:39am 11/18/2017 6: 31am Mean Corpuscular Hemoglobin 29.8 pg 28-32 11/18/2017 5:39am 11/18/2017 6:31am Mean Corpuscular Hemoglobin Concent 32.0 g/dL 31-35 11/18/2017 5:39am 11/18/2017 6:31am Red Cell Distribution Width 14.8 % H 11.7-14.4 11/18/2017 5:39am 2017 6:31am Platelet Count 154 x10e3/uL 140-360 11/18/2017 5:39am 11/18/2017 6: 31am Neutrophils (%) (Auto) 92.6 % H 38.7-80.0 11/18/2017 5:39am 11/18/2017 6 :31am Lymphocytes (%) (Auto) 5.0 % L 18.0-39.1 11/18/2017 5:39am 11/18/2017 6: 31am Monocytes (%) (Auto) 0.5 % L 4.4-11.3 11/18/2017 5:39am 11/18/2017 6: 31am Eosinophils (%) (Auto) 0.0 % 0.0-6.0 11/18/2017 5:39am 11/18/2017 6: 31am Basophils (%) (Auto) 0.1 % 0.0-1.0 11/18/2017 5:39am 11/18/2017 6:31am IM GRANULOCYTES % 1.8 % H 0.0-1.0 11/18/2017 5:39am 11/18/2017 6:31am Neutrophils # (Auto) 8.6 H 2.1-6.9 11/18/2017 5:39am 11/18/2017 6: 31am Lymphocytes # (Auto) 0.5 L 1.0-3.2 11/18/2017 5:39am 11/18/2017 6: 31am Monocytes # (Auto) 0.1 L 0.2-0.8 11/18/2017 5:39am 11/18/2017 6:31am Eosinophils # (Auto) 0.0 0.0-0.4 11/18/2017 5:39am 11/18/2017 6:31am Basophils # (Auto) 0.0 0.0-0.1 11/18/2017 5:39am 11/18/2017 6:31am Absolute Immature Granulocyte (auto 0.17 x10e3/uL H 0-0.1 11/18/2017 5: 39am 11/18/2017 6:31am Differential Total Cells Counted 100 11/18/2017 5:39am 11/18/2017 8 :56am Neutrophils % (Manual) 91 % H 40-74 11/18/2017 5:39am 11/18/2017 8:56am Lymphocytes % (Manual) 4 % L 19-48 11/18/2017 5:39am 11/18/2017 8:56am Monocytes % (Manual) 3 % L 3.4-9.0 11/18/2017 5:39am 11/18/2017 8:56am Myelocytes % 1 % H 0-0 11/18/2017 5:39am 11/18/2017 8:56am Reactive Lymphocytes 1 11/18/2017 5:39am 11/18/2017 8:56am Platelet Estimate SLIGHTLY DECREASED 11/18/2017 5:39am 11/18/2017 8 :56am Platelet Morphology Comment FEW LARGE 11/18/2017 5:39am 11/18/2017 8:56am Hypochromasia SLIGHT 11/18/2017 5:39am 11/18/2017 8:56am Anisocytosis SLIGHT 11/18/2017 5:39am 11/18/2017 8:56am Red Cell Morphology Comment NORMAL 11/18/2017 5:39am 11/18/2017 8: 56am Urine Color YELLOW YELLOW 11/17/2017 5:00pm 11/17/2017 5:23pm Urine Clarity SL CLOUDY CLEAR 11/17/2017 5:00pm 11/17/2017 5:23pm Urine Specific [place] 1.015 1.010-1.025 11/17/2017 5:00pm 2017 5:23pm Urine pH 5 5 - 7 11/17/2017 5:00pm 11/17/2017 5:23pm Urine Leukocyte Esterase NEGATIVE NEGATIVE 11/17/2017 5:00pm 2017 5:23pm Urine Nitrite NEGATIVE NEGATIVE 11/17/2017 5:00pm 11/17/2017 5:23pm Urine Protein NEGATIVE NEGATIVE 11/17/2017 5:00pm 11/17/2017 5:23pm Urine Glucose (UA) NEGATIVE NEGATIVE 11/17/2017 5:00pm 11/17/2017 5: 23pm Urine Ketones NEGATIVE NEGATIVE 11/17/2017 5:00pm 11/17/2017 5:23pm Urine Urobilinogen 0.2 mg/dL 0.2 - 1 11/17/2017 5:00pm 11/17/2017 5: 23pm Urine Bilirubin NEGATIVE NEGATIVE 11/17/2017 5:00pm 11/17/2017 5: 23pm Urine Blood NEGATIVE NEGATIVE 11/17/2017 5:00pm 11/17/2017 5:23pm Urine WBC 0-5 /HPF 0-5 11/17/2017 5:00pm 11/17/2017 5:35pm Urine RBC NONE /HPF 0-5 11/17/2017 5:00pm 11/17/2017 5:35pm Urine Bacteria FEW /HPF NONE 11/17/2017 5:00pm 11/17/2017 5:35pm Urine Epithelial Cells FEW /LPF NONE 11/17/2017 5:00pm 11/17/2017 5: 35pm Urine Hyaline Casts 0-1 0-1 11/17/2017 5:00pm 11/17/2017 5:35pm Sodium Level 133 mmol/L L 136-145 11/18/2017 5:39am 11/18/2017 6:38am Potassium Level 4.5 mmol/L 3.5-5.1 11/18/2017 5:39am 11/18/2017 6:38am Chloride Level 98 mmol/L 98-107 11/18/2017 5:39am 11/18/2017 6:38am Carbon Dioxide Level 24 mmol/L 22-29 11/18/2017 5:39am 11/18/2017 6: 38am Anion Gap 15.5 mmol/L 8-16 11/18/2017 5:39am 11/18/2017 6:38am Blood Urea Nitrogen 36 mg/dL H 7-26 11/18/2017 5:39am 11/18/2017 6:38am Creatinine 2.68 mg/dL H 0.57-1.11 11/18/2017 5:39am 11/18/2017 6:38am BUN/Creatinine Ratio 13 6-25 11/18/2017 5:39am 11/18/2017 6:38am Estimat Glomerular Filtration Rate 17 ML/MIN L 60- 11/18/2017 5:39am 03/2018 6:38am Ranges were taken from the National Kidney Disease Education Program and the National Kidney Foundation literature. Reference ranges: 60 or greater: Normal 16-59 (for 3 consecutive months): Chronic kidney disease 15 or less: Kidney failure Glucose Level 195 mg/dL H 74-118 11/18/2017 5:39am 11/18/2017 6:38am Calcium Level 8.5 mg/dL 8.4-10.2 11/18/2017 5:39am 11/18/2017 6:38am Phosphorus Level 2.5 MG/DL 2.3-4.7 11/17/2017 5:00pm 11/17/2017 5:39pm Magnesium Level 1.4 MG/DL 1.3-2.1 11/17/2017 5:00pm 11/17/2017 5:39pm Total Bilirubin 0.4 mg/dL 0.2-1.2 11/17/2017 5:00pm 11/17/2017 5:39pm Aspartate Amino Transf (AST/SGOT) 17 IU/L 5-34 11/17/2017 5:00pm 2017 5:39pm Alanine Aminotransferase (ALT/SGPT) 6 IU/L 0-55 11/17/2017 5:00pm 11/17 5:39pm Total Protein 6.7 g/dL 6.5-8.1 11/17/2017 5:00pm 11/17/2017 5:39pm Albumin 2.6 g/dL L 3.5-5.0 11/17/2017 5:00pm 11/17/2017 5:39pm Globulin 4.1 g/dL H 2.3-3.5 11/17/2017 5:00pm 11/17/2017 5:39pm Albumin/Globulin Ratio 0.6 L 0.8-2.0 11/17/2017 5:00pm 11/17/2017 5: 39pm Alkaline Phosphatase 82 IU/L 40-150 11/17/2017 5:00pm 11/17/2017 5: 39pm Lipase 32 U/L 8-78 11/17/2017 5:00pm 11/17/2017 5:39pm Thyroid Stimulating Hormone (TSH) 1.545 uIU/mL 0.350-4.940 11/17/2017 5: 00pm 11/17/2017 5:59pm Microbiology Results Procedure Source Organism/Result Collection Date/Time Result Date/Time Result Status Urine Culture Urine,Clean Catch ESCHERICHIA COLI 04/27/2017 12:55am 2016 8:26am Final Procedures Procedure Status Date Provider(s) Wound closure by adhesive Completed 07/12/17 BELGICA DAVIS MD EXCISION OF STOMACH, PYLORUS, ENDO, DIAGN Completed 07/16/17 LINSEY DANIELLE MD INSPECTION OF LOWER INTESTINAL TRACT, ENDO Completed 07/17/17 LINSEY DANIELLE MD INSERTION OF INFUSION DEV INTO SUP VENA CAVA, PERC APPROACH Completed JL PACE MD CT extremity lower wo contrast Active 04/27/17 BELGICA DAVIS MD Computed tomography of brain without radiopaque contrast Active 05/01/17 KASEY MENSAH MD Computed tomography of cervical spine without contrast Active 05/01/17 KASEY MENSAH MD X-ray of chest, single view Active 05/01/17 KASEY MENSAH MD Computed tomography of cervical spine without contrast Active 07/12/17 RUEL STUART MD Computed tomography of brain without radiopaque contrast Active 07/20/17 JACOB CESPEDES MD X-ray of chest, single view Active 11/17/17 BRAYDEN LEDESMA MD Encounters Encounter Location Arrival/Admit Date Discharge/Depart Date Attending Provider Discharged Inpatient [facility] 11/17/17 6:53pm 11/20/17 10:51am JL PACE MD Registered Clinic [facility] 09/24/17 1:30pm EDWARDO FELIPE MD Registered Clinic [facility] 09/17/17 9:00am NONSTAFF Registered Clinic [facility] 09/16/17 9:00am EDWARDO FELIPE MD Discharged Inpatient [facility] 07/15/17 4:51am 07/29/17 4:18pm JL PACE MD Departed Emergency Room [facility] 07/12/17 8:51pm 1:55am RUEL STUART MD Discharged Inpatient [facility] 05/19/17 7:10pm 05/28/17 4:27pm JL PACE MD Departed Emergency Room [facility] 05/01/17 10:11am 05/01 2:52pm KASEY MENSAH MD Discharged Inpatient (obs) [facility] 04/27/17 3:11am 10:30am JL PACE MD
--- NOTE | 2017-11-20 21:47 | Diagnostic Imaging Report ---
SHOULDER RIGHT COMPLETE HISTORY: Right shoulder pain COMPARISON: None FINDINGS: Bones: Findings are compatible with right anterior, inferior dislocation of the glenohumeral joint Joints: Right anterior, inferior dislocation of the glenohumeral joint Soft tissues: The soft tissues appear unremarkable. IMPRESSION: 1. Anteroinferior dislocation of the right humerus Signed by: Dr. Andre Hyatt M.D. on 11/20/2017 9:43 PM
[2017-11-20 22:09] VITALS: BP 160/87
== END 2017-11-20 22:36 | disposition home or self-care (01) ==
LOC: ER 20:48
DX: M25.511 Pain in right shoulder (principal); I12.0 Hypertensive chronic kidney disease with stage 5 chronic kidney disease or end stage renal disease; N18.6 End stage renal disease; I48.91 Unspecified atrial fibrillation; M10.9 Gout, unspecified; E78.5 Hyperlipidemia, unspecified; M25.562 Pain in left knee; M25.561 Pain in right knee; Z95.810 Presence of automatic (implantable) cardiac defibrillator
CPT/HCPCS: 99283

== ENCOUNTER 2018-03-05 12:42 | Inpatient (IN) | payer MEDICARE, OTHER ==
[~2018-03-05] VITALS: Ht 327.7 cm; Wt 78.0 kg
[2018-03-05 13:14] LABS: BASOPHILS # (AUTO) 0.1 (0.0-0.1); BASOPHILS % 0.8 % (0.0-1.0); EOSINOPHILS % 15.6 % (0.0-6.0); HEMATOCRIT 29.4 % (34.2-44.1); HEMOGLOBIN 9.5 g/dL (12.0-16.0); LYMPHOCYTES # (AUTO) 1.2 (1.0-3.2); LYMPHOCYTES % 18.7 % (18.0-39.1); MEAN CORPUSCULAR HEMOGLOBIN 30.4 pg (28-32); MEAN CORPUSCULAR HGB CONC 32.3 g/dL (31-35); MEAN CORPUSCULAR VOLUME 94.2 fL (81-99); MONOCYTES # (AUTO) 0.5 (0.2-0.8); MONOCYTES % 8.2 % (4.4-11.3); NEUTROPHILS # (AUTO) 3.7 (2.1-6.9); NEUTROPHILS % 56.4 % (38.7-80.0); PLATELET COUNT 180 x10e3/uL (140-360); RED BLOOD COUNT 3.12 x10e6/uL (3.6-5.1); RED CELL DISTRIBUTION WIDTH 15.8 % (11.7-14.4)
[2018-03-05 13:32] LABS: ALBUMIN 2.5 g/dL (3.5-5.0); ALBUMIN/GLOBULIN RATIO 0.7 (0.8-2.0); ANION GAP 14.6 mmol/L (8-16); CALCIUM 8.8 mg/dL (8.4-10.2); CREATININE, SERUM 3.09 mg/dL (0.57-1.11); POTASSIUM 3.6 mmol/L (3.5-5.1)
[2018-03-05 13:52] LABS: CREATINE KINASE MB 1.1 ng/mL (0-5.0); THYROID STIMULATING HORMONE 1.967 uIU/mL (0.350-4.940)
[2018-03-05] MEDS ORDERED: SODIUM CHLORIDE 0.9% 1000ML 1,000 ML IV ONE ×2 (14:00→18:30)
--- NOTE | 2018-03-05 14:00 | Diagnostic Imaging Report ---
PROCEDURE: CHEST SINGLE (PORTABLE) COMPARISON: [facility], DX, CHEST SINGLE (NOT PORTABLE), 11/17/2017, 17:21. INDICATIONS: LOW BLOOD PRESSURE, DIZZY FINDINGS: LUNGS: No consolidations or edema. Linear density in the left retrocardiac region likely represents scarring or subsegmental atelectasis. PLEURA: No effusions or pneumothorax. HEART \T\ MEDIASTINUM: The heart is within normal size-limits. Cardiac device overlies the left chest. BONES \T\ SOFT TISSUES: Unchanged medial displacement of the humeral head in relationship to the right glenoid. CONCLUSION: No acute thoracic abnormality. Wes Serrano D.O. Dictated by: Wes Serrano D.O. on 03/05/2018 at 14:03 Electronically approved by: Wes Serrano D.O. on 03/05/2018 at 14:03
[2018-03-05] MEDS ORDERED: LORAZEPAM INJ 2 MG/ML VIAL IV ONE (17:30)
[2018-03-05 17:44] LABS: BILIRUBIN,URINE NEGATIVE (NEGATIVE); CLARITY,URINE SL CLOUDY (CLEAR); COLOR,URINE YELLOW (YELLOW); KETONES,URINE NEGATIVE (NEGATIVE); LEUKOCYTE ESTERASE ,URINE 1+ (NEGATIVE); NITRITE,URINE NEGATIVE (NEGATIVE); PROTEIN,URINE DIPSTICK NEGATIVE (NEGATIVE); URINE UROBILINOGEN 0.2 mg/dL (0.2 - 1)
[2018-03-05 17:54] LABS: BACTERIA,URINE FEW /HPF; EPITHELIAL CELLS,URINE RARE /LPF; RBC,URINE 0-5 /HPF (0-5)
[2018-03-05] MEDS ORDERED: ONDANSETRON HCL INJ 2 MG/ML VIAL IV PRN (18:00)
[2018-03-05] MEDS: CEFTRIAXONE SOD 1 GM VIAL IV SCH (18:45)
[2018-03-05] MEDS: VANCOMYCIN 500MG/NS 0.9% 100ML 100 ML IV SCH (19:02)
[2018-03-05] MEDS: SODIUM CHLORIDE 0.9% 1000ML 1,000 ML IV SCH (19:02)
--- NOTE | 2018-03-05 19:30 | History and Physical ---
CHIEF COMPLAINT: This is an 88-year-old female who comes with near syncope. HISTORY OF PRESENTING ILLNESS: This patient was in usual state of health until patient was sitting in the [employer] shop. Suddenly she felt a syncopal episode coming on where she felt dizzy and felt that she was losing vision, and the patient had these episodes waxing and waning and came to the emergency room, was admitted for hypotension and hypovolemia. PAST MEDICAL HISTORY: History of AFib, history of AICD placement, history of chronic kidney disease, history of hypertension and also history of hypothyroidism and hyperlipidemia. Patient's medical history also includes cellulitis of the legs, which is chronic. MEDICINES SHE TAKES AT HOME 1. Amiodarone 200 mg daily. 2. Aspirin 81 mg. 3. Coreg 25 mg daily. 4. . 5. Estradiol 0.5 mg daily. 6. Folic acid 1 mg tablet daily. 7. Lasix 40 mg twice a day. 8. Hydrocodone 1 tablet p.o. b.i.d. as needed. 9. Liothyronine/Cytomel 5 mg daily. 10. Propranolol 1 mg tablet daily. 11. Simvastatin 20 mg at nighttime. SURGICAL HISTORY: Patient has a history of hysterectomy and cholecystectomy. FAMILY HISTORY: Noncontributory. REVIEW OF SYSTEMS: Negative for chest pain. Positive for some shortness of breath. No nausea, vomiting, diarrhea. No constipation, no rectal bleeding. No hematochezia, no hematemesis either. No diplopia. Positive for some blurry vision after the episodes. No headaches. Patient does feel like she is going and also feels jittery inside with a lot of muscle pains, too. PHYSICAL EXAMINATION VITAL SIGNS: Temperature 98.0. Pulse of 70. Respiration of 16. Blood pressure is 88/38. The latest one is 108/54. HEENT: Normocephalic, atraumatic. Pupils react to light and accommodation. CARDIOVASCULAR: S1, irregularly irregular. ABDOMEN: Nontender, nondistended. EXTREMITIES: Positive for erythema bilaterally. Positive for areas of excoriation and also ulceration in the lower extremities. IMAGING STUDIES: Chest x-ray shows no acute thoracic abnormalities. MICROBIOLOGY: Her cultures are pending. LABORATORY VALUES: Sodium was 135, BUN of 61, creatinine of 3.09, estimated GFR of 14. Total protein was 6.1. TSH was 1.97. HEMATOLOGY: White count of 6.62, hemoglobin of 9.5. Eosinophils of 15.6. RDW was 15.8. ASSESSMENT 1. Hypovolemia, hypertension. Plan to rehydrate the patient. Will hold back on her home medications at this time. Troponins have been negative. CK, CK-MB have been negative, too. Will go ahead and bolus her 2 liters of fluids. Consult Dr. Neumann for her kidney functions. 1. Syncope and collapse. 2. Cellulitis and also cystitis. Patient will be put on Rocephin 250 mg q.12 h. Will continue to monitor the patient. Further recommendations on clinical course. EKG showed sequential pacing and otherwise normal. We will also consult Dr. Neumann for further care. Job#: [id number] EV
[2018-03-05 20:00] VITALS: BP 113/55
[2018-03-05] MEDS: MORPHINE SULFATE 2 MG/ML SYR IV PRN (20:40)
[2018-03-06] VITALS (9 sets, daily range): BP systolic 113–160; BP diastolic 53–70
[2018-03-06] MEDS: MORPHINE SULFATE 2 MG/ML SYR IV PRN (05:10)
[2018-03-06] MEDS: SODIUM CHLORIDE 0.9% 1000ML 1,000 ML IV SCH ×3 (05:10→14:18)
[2018-03-06] MEDS: VANCOMYCIN 500MG/NS 0.9% 100ML 100 ML IV SCH ×2 (06:06→17:38)
[2018-03-06 07:43] LABS: BASOPHILS % 0.6 % (0.0-1.0); EOSINOPHILS # (AUTO) 0.8 (0.0-0.4); EOSINOPHILS % 14.9 % (0.0-6.0); HEMATOCRIT 28.8 % (34.2-44.1); HEMOGLOBIN 9.4 g/dL (12.0-16.0); LYMPHOCYTES # (AUTO) 1.1 (1.0-3.2); LYMPHOCYTES % 20.5 % (18.0-39.1); MEAN CORPUSCULAR HEMOGLOBIN 30.9 pg (28-32); MEAN CORPUSCULAR HGB CONC 32.6 g/dL (31-35); MEAN CORPUSCULAR VOLUME 94.7 fL (81-99); MONOCYTES # (AUTO) 0.4 (0.2-0.8); MONOCYTES % 8.2 % (4.4-11.3); NEUTROPHILS % 55.6 % (38.7-80.0); PLATELET COUNT 175 x10e3/uL (140-360); RED BLOOD COUNT 3.04 x10e6/uL (3.6-5.1); RED CELL DISTRIBUTION WIDTH 15.9 % (11.7-14.4)
[2018-03-06 07:58] LABS: ANION GAP 12.3 mmol/L (8-16); CALCIUM 8.4 mg/dL (8.4-10.2); CREATININE, SERUM 2.52 mg/dL (0.57-1.11); POTASSIUM 3.3 mmol/L (3.5-5.1)
[2018-03-06] MEDS: BISACODYL 5 MG TAB EC PO PRN (17:38)
[2018-03-06] MEDS: CEFTRIAXONE SOD 1 GM VIAL IV SCH (17:38)
--- NOTE | 2018-03-06 18:13 | Consultation ---
DATE OF CONSULTATION: March 06, 2018 REQUESTING PHYSICIAN: Dr. Edmundo Bryant. REASON FOR CONSULTATION: Acute kidney injury. Thank you for allowing us to participate in Ms. Ferrell's care. This is an 88-year-old female with a history of nephrosclerosis and CHF, maintained on diuretics. She was feeling well until she fainted yesterday and was found to be hypotensive when she came to the ER, and that has been improving with IV fluids. Chest x-ray did not show any gross CHF. She is feeling better now. She does have some cellulitis on the legs for which she is getting IV antibiotics. No recent NSAID use. Normally her baseline creatinine of late has been running around 2 mg%, based on old labs from this hospital. Currently, it is 2.5 down from 3 mg% yesterday with IV fluids. She also has elevated serum CO2 consistent with volume contraction. PAST MEDICAL HISTORY: 1. Chronic kidney disease, stage 4. 2. Nephrosclerosis. 3. . 4. Renal cyst. 5. History of CHF. 6. fluid overload. 7. Anemia. 8. Acute cellulitis. 9. Deconditioning. HOME MEDICATIONS: Please see list. The Lasix has been held. FAMILY HISTORY: No kidney problems. Hypertension positive. REVIEW OF SYSTEMS: CONSTITUTIONAL: Feels weak. SKIN: Has redness on the legs. RESPIRATORY: Chronic dyspnea. CARDIAC: Denies any syncope. NEUROLOGIC: Denies headaches or seizures, but earlier had some blurry vision. PHYSICAL EXAMINATION GENERAL: Lying in bed in no distress. VITAL SIGNS: Temperature 97.5, pulse 98, blood pressure 120/53. HEENT: Atraumatic. NECK: Veins are flat. CHEST: Clear with bilateral breath sounds equal. CARDIAC: Normal heart tones. A faint systolic murmur. EXTREMITIES: Trace edema. SKIN: Redness of the legs. NEUROLOGIC: Appears to be alert and appropriate with generalized weakness. Chest x-ray with no CHF. . Creatinine 2.5. BUN 51. Yesterday UA did not show any casts. Yesterday, creatinine was 3, hemoglobin 9.4. ASSESSMENT 1. Chronic kidney disease, stage 4. 2. Acute kidney injury due to volume depletion due to decrease. 3. History of fluid overload. 4. Mild hypokalemia. PLAN: Run the IV fluids through today. Will start Lasix as she does go into CHF easily. Replace potassium. Avoid nephrotoxins such as NSAIDs. Chemistries. Will follow along. Sincerely, Job#: [id number] [place]
[2018-03-07] VITALS: BP 132/61
[2018-03-07 04:00] VITALS: BP 166/77
[2018-03-07] MEDS ORDERED: LOPID600 MG PO (05:31)
[2018-03-07] MEDS ORDERED: TYLENOL WITH C1 EACH PO (05:31)
[2018-03-07] MEDS ORDERED: ALLOPURINOL300 MG PO (05:31)
[2018-03-07] MEDS ORDERED: CARVEDILOL3.125 MG PO ×2 (05:31)
[2018-03-07] MEDS: VANCOMYCIN 500MG/NS 0.9% 100ML 100 ML IV SCH (05:51)
[2018-03-07] MEDS: SODIUM CHLORIDE 0.9% 1000ML 1,000 ML IV SCH ×2 (05:58→15:06)
[2018-03-07] MEDS ORDERED: ACETAMINOPHEN/CODEINE 300MG - 30MG TAB PO PRN (06:45)
[2018-03-07 07:28] LABS: BASOPHILS % 0.5 % (0.0-1.0); EOSINOPHILS # (AUTO) 0.8 (0.0-0.4); EOSINOPHILS % 13.5 % (0.0-6.0); HEMATOCRIT 29.7 % (34.2-44.1); HEMOGLOBIN 9.4 g/dL (12.0-16.0); LYMPHOCYTES # (AUTO) 1.2 (1.0-3.2); LYMPHOCYTES % 21.4 % (18.0-39.1); MEAN CORPUSCULAR HEMOGLOBIN 30.2 pg (28-32); MEAN CORPUSCULAR HGB CONC 31.6 g/dL (31-35); MEAN CORPUSCULAR VOLUME 95.5 fL (81-99); MONOCYTES # (AUTO) 0.4 (0.2-0.8); MONOCYTES % 6.6 % (4.4-11.3); NEUTROPHILS # (AUTO) 3.2 (2.1-6.9); NEUTROPHILS % 57.6 % (38.7-80.0); PLATELET COUNT 169 x10e3/uL (140-360); RED BLOOD COUNT 3.11 x10e6/uL (3.6-5.1); RED CELL DISTRIBUTION WIDTH 15.9 % (11.7-14.4)
[2018-03-07 07:55] LABS: ANION GAP 10.8 mmol/L (8-16); CALCIUM 8.5 mg/dL (8.4-10.2); CREATININE, SERUM 2.08 mg/dL (0.57-1.11); POTASSIUM 3.8 mmol/L (3.5-5.1)
[2018-03-07] MEDS: [UNRECOGNIZED DRUG - REMARK] PO SCH ×2 (09:00→17:00)
[2018-03-07 09:20] VITALS: BP 154/67
[2018-03-07] MEDS: CARVEDILOL 3.125 MG TAB PO SCH (09:20)
[2018-03-07] MEDS: FOLIC ACID 1 MG TAB PO SCH (09:20)
[2018-03-07] MEDS: ROPINIROLE HCL 1 MG TAB PO SCH ×2 (09:20→17:00)
[2018-03-07] MEDS: ASPIRIN 81 MG CHEW TAB PO SCH (09:20)
[2018-03-07] MEDS: AMIODARONE HCL 200 MG TAB PO SCH (09:20)
[2018-03-07] MEDS: FUROSEMIDE 40 MG TAB PO SCH (09:20)
[2018-03-07] MEDS: ESTRADIOL 1 MG TAB PO SCH (09:20)
[2018-03-07] MEDS: ALLOPURINOL 300 MG TAB PO SCH (09:20)
[2018-03-07] MEDS: LIOTHYRONINE SODIUM 5 MCG TAB PO SCH (09:20)
[2018-03-07 16:39] VITALS: BP 115/54
[2018-03-07] MEDS: CEFTRIAXONE SOD 1 GM VIAL IV SCH (18:15)
[2018-03-07 20:05] VITALS: BP 115/54
[2018-03-07] MEDS: BISACODYL 5 MG TAB EC PO PRN (20:10)
[2018-03-07 21:00] VITALS: BP 119/56
[2018-03-07] MEDS ORDERED: CARVEDILOL 3.125 MG TAB PO SCH (21:00)
[2018-03-07] MEDS ORDERED: SIMVASTATIN 20 MG TAB PO SCH (21:00)
[2018-03-07] MEDS ORDERED: GEMFIBROZIL 600 MG TAB PO SCH (21:00)
[2018-03-08 01:21] VITALS: BP 128/60
[2018-03-08 04:48] VITALS: BP 128/60
[2018-03-08] MEDS ORDERED: VANCOMYCIN 750MG/NS 150ML IVPB 150 ML IV SCH (06:00)
[2018-03-08 08:08] VITALS: BP 121/57
[2018-03-08] MEDS: CARVEDILOL 3.125 MG TAB PO SCH (08:30)
[2018-03-08] MEDS: [UNRECOGNIZED DRUG - REMARK] PO SCH (08:30)
[2018-03-08] MEDS: ROPINIROLE HCL 1 MG TAB PO SCH (08:30)
[2018-03-08] MEDS: FUROSEMIDE 40 MG TAB PO SCH (08:30)
[2018-03-08] MEDS: ESTRADIOL 1 MG TAB PO SCH (08:30)
[2018-03-08] MEDS: LIOTHYRONINE SODIUM 5 MCG TAB PO SCH (08:30)
[2018-03-08] MEDS: FOLIC ACID 1 MG TAB PO SCH (08:30)
[2018-03-08] MEDS: AMIODARONE HCL 200 MG TAB PO SCH (08:30)
[2018-03-08] MEDS: ASPIRIN 81 MG CHEW TAB PO SCH (08:30)
[2018-03-08] MEDS: ALLOPURINOL 300 MG TAB PO SCH (08:31)
== END 2018-03-08 09:36 | disposition home or self-care (01) | DRG 683 ==
LOC: ER 12:42 → ERHOLD 18:33 → MED/SURG 19:06
PROVIDERS: ADMIT Internal Medicine; ATTEND Internal Medicine
DX: N17.9 Acute kidney failure, unspecified (principal); N30.00 Acute cystitis without hematuria; L03.116 Cellulitis of left lower limb; L03.115 Cellulitis of right lower limb; I13.0 Hypertensive heart and chronic kidney disease with heart failure and stage 1 through stage 4 chronic kidney disease, or unspecified chronic kidney disease; R55 Syncope and collapse; N18.4 Chronic kidney disease, stage 4 (severe); I95.2 Hypotension due to drugs; Z95.810 Presence of automatic (implantable) cardiac defibrillator; E86.1 Hypovolemia; E87.6 Hypokalemia; I48.91 Unspecified atrial fibrillation; N28.1 Cyst of kidney, acquired; D64.9 Anemia, unspecified; I50.9 Heart failure, unspecified; E03.9 Hypothyroidism, unspecified; B96.20 Unspecified Escherichia coli [E. coli] as the cause of diseases classified elsewhere; Z79.82 Long term (current) use of aspirin
CPT/HCPCS: 36415; 71045; 80048; 80053; 81001; 82550; 82553; 83605; 83874; 84443; 84484; 85025; 87040; 87086; 87186; 93005; 99284; J0696; J2060; J2270; J3370; J7030

== ENCOUNTER 2018-03-18 01:03 | Inpatient (IN) | payer MEDICARE, OTHER ==
[~2018-03-18] VITALS: Ht 175.3 cm; Wt 73.9 kg
[2018-03-18] VITALS (8 sets, daily range): BP systolic 122–142; BP diastolic 57–73
[~2018-03-18 01:03] MED LIST changes: +CARVEDILOL3.125 MG PO; +LOPID600 MG PO; +TYLENOL WITH C1 EACH PO
[2018-03-18] MEDS ORDERED: METHYLPREDNISOLONE SOD SUCC 125 MG/2ML VIAL IV STA (01:06)
[2018-03-18] MEDS ORDERED: FAMOTIDINE 20 MG/2 ML VIAL IV STA (01:06)
[2018-03-18] MEDS ORDERED: SODIUM CHLORIDE 0.9% 500ML 500 ML IV ONE (01:15)
[2018-03-18] MEDS ORDERED: DIPHENHYDRAMINE HCL INJ 50 MG/ML VIAL IV ONE (01:15)
[2018-03-18] MEDS ORDERED: CARVEDILOL6.25 MG PO (01:33)
[2018-03-18] MEDS ORDERED: GEMFIBROZIL600 MG PO (01:33)
[2018-03-18 01:36] LABS: BASOPHILS % 0.6 % (0.0-1.0); EOSINOPHILS # (AUTO) 0.5 (0.0-0.4); EOSINOPHILS % 8.4 % (0.0-6.0); HEMATOCRIT 26.6 % (34.2-44.1); HEMOGLOBIN 8.6 g/dL (12.0-16.0); LYMPHOCYTES # (AUTO) 1.1 (1.0-3.2); LYMPHOCYTES % 17.8 % (18.0-39.1); MEAN CORPUSCULAR HEMOGLOBIN 30.3 pg (28-32); MEAN CORPUSCULAR HGB CONC 32.3 g/dL (31-35); MEAN CORPUSCULAR VOLUME 93.7 fL (81-99); MONOCYTES # (AUTO) 0.6 (0.2-0.8); MONOCYTES % 8.9 % (4.4-11.3); NEUTROPHILS % 62.9 % (38.7-80.0); PLATELET COUNT 137 x10e3/uL (140-360); RED BLOOD COUNT 2.84 x10e6/uL (3.6-5.1); RED CELL DISTRIBUTION WIDTH 15.5 % (11.7-14.4)
[2018-03-18 01:38] LABS: INR 1.06
[2018-03-18 01:39] LABS: PARTIAL THROMBOPLASTIN TIME 37.1 seconds (23.8-35.5)
[2018-03-18 01:45] LABS: ALANINE AMINOTRANSFERASE 6 IU/L (0-55); ALBUMIN 2.4 g/dL (3.5-5.0); ALBUMIN/GLOBULIN RATIO 0.7 (0.8-2.0); ALKALINE PHOSPHATASE 79 IU/L (40-150); ANION GAP 15.8 mmol/L (8-16); BLOOD UREA NITROGEN 45 mg/dL (7-26); BUN/CREATININE RATIO 12 (6-25); CALCIUM 8.7 mg/dL (8.4-10.2); CARBON DIOXIDE 29 mmol/L (22-29); CHLORIDE 96 mmol/L (98-107); CREATININE, SERUM 3.89 mg/dL (0.57-1.11); EST GLOMERULAR FILTRATION RATE 11 ML/MIN (60-); GLUCOSE 95 mg/dL (74-118); MAGNESIUM 1.8 MG/DL (1.3-2.1); POTASSIUM 3.8 mmol/L (3.5-5.1); SODIUM 137 mmol/L (136-145)
--- NOTE | 2018-03-18 02:09 | Diagnostic Imaging Report ---
EXAM: CHEST SINGLE (PORTABLE), AP 1 view INDICATION: Tongue, lip swelling COMPARISON: AP view of the chest March 05, 2018 FINDINGS: LINES/TUBES: Stable position of left approach cardiac device LUNGS: No consolidations or edema. PLEURA: No effusions or pneumothorax. HEART AND MEDIASTINUM: Normal size and contour. BONES AND SOFT TISSUES: Chronic dislocation of the right shoulder. Multiple surgical clips along the medial aspect of the left arm. IMPRESSION: No acute thoracic abnormality. Signed by: Dr. Maeve Kruger M.D. on 03/18/2018 2:06 AM
[2018-03-18 03:15] LABS: BILIRUBIN,URINE NEGATIVE (NEGATIVE); CLARITY,URINE CLEAR (CLEAR); COLOR,URINE YELLOW (YELLOW); KETONES,URINE NEGATIVE (NEGATIVE); LEUKOCYTE ESTERASE ,URINE NEGATIVE (NEGATIVE); NITRITE,URINE NEGATIVE (NEGATIVE); PROTEIN,URINE DIPSTICK NEGATIVE (NEGATIVE); URINE UROBILINOGEN 0.2 mg/dL (0.2 - 1)
[2018-03-18 03:16] LABS: EPITHELIAL CELLS,URINE FEW /LPF; YEAST,URINE RARE
[2018-03-18 03:27] LABS: CREATINE KINASE < 70 IU/L (29-168)
[2018-03-18] MEDS ORDERED: ONDANSETRON HCL INJ 2 MG/ML VIAL IV PRN (04:15)
[2018-03-18] MEDS: SODIUM CHLORIDE 0.9% 1000ML 1,000 ML IV SCH (04:17)
[2018-03-18] MEDS ORDERED: ASPIRIN81 MG PO (05:14)
[2018-03-18] MEDS ORDERED: FISH OIL 1,2001 EACH (05:14)
[2018-03-18] MEDS ORDERED: FOLIC ACID1 MG PO (05:14)
[2018-03-18] MEDS: GEMFIBROZIL 600 MG TAB PO SCH (07:30)
[2018-03-18] MEDS: LIOTHYRONINE SODIUM 5 MCG TAB PO SCH (07:30)
[2018-03-18] MEDS ORDERED: FOLIC ACID 1 MG TAB PO SCH (09:00)
--- NOTE | 2018-03-18 09:49 | History and Physical ---
The patient presented with the chief complaint of lip swelling, tongue swelling, but no compromised airway versus no . Had some angioedema and she was given appropriate medication. She is feeling significantly better. She is being admitted for further evaluation. She had some recent right shoulder pain. Outpatient x-ray showed dislocated right shoulder. 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 MEDICATIONS: See MAR. ALLERGIES: HYDROCODONE. SOCIAL HISTORY: Nonsmoker and nondrinker. Lives at home. FAMILY HISTORY: Hypertension. PHYSICAL EXAMINATION VITALS: Temperature 98.6, blood pressure 146/78, pulse 78, sats 97% on room air. GENERAL: No apparent distress. NECK: Supple with no lymphadenopathy. CARDIOVASCULAR: Regular rate and rhythm. LUNGS: Clear to auscultation bilaterally. ABDOMEN: Good bowel sounds. Soft and nontender. EXTREMITIES: Show very tender right shoulder with some possible anterior dislocation. NEUROLOGICAL: Nonfocal. ASSESSMENT AND PLAN 1. Angioedema: Will continue with current care since she is doing much better. The patient is unsure of what she ate or drank that could have triggered it. 2. Hypertension: Continue with current care and monitoring. 3. Anemia of chronic kidney disease: Continue to monitor. 4. Peripheral arterial disease: Continue to monitor. 5. Chronic kidney disease, stage 4: Will consult renal doctor. Please see hospital chart for full details. Job#: [id number] [place]
--- NOTE | 2018-03-18 09:57 | Diagnostic Imaging Report ---
PROCEDURE:X-RAY RIGHT SHOULDER, COMPLETE COMPARISON:[facility], DX, SHOULDER RIGHT COMPLETE, 11/20/2017. INDICATIONS:RIGHT SHOULDER DISLOCATION FINDINGS: Anterior medial glenohumeral dislocation which is chronic. There are no fractures, lytic or blastic lesions. The bones are demineralized. The soft-tissues are unremarkable. CONCLUSION: Chronic anterior glenohumeral dislocation. Wes Serrano D.O. Dictated by: Wes Serrano D.O. on 03/18/2018 at 10:01 Electronically approved by: Wes Serrano D.O. on 03/18/2018 at 10:01
[2018-03-18] MEDS: MORPHINE SULFATE 5 MG/ML VIAL IV PRN (10:44)
[2018-03-18] MEDS: FOLIC ACID 1 MG TAB PO SCH (11:42)
[2018-03-18] MEDS: ALLOPURINOL 300 MG TAB PO SCH (11:42)
[2018-03-18] MEDS: ASPIRIN 81 MG CHEW TAB PO SCH (11:42)
[2018-03-18] MEDS: ROPINIROLE HCL 1 MG TAB PO SCH ×2 (11:42→17:03)
[2018-03-18] MEDS: CARVEDILOL 12.5 MG TAB PO SCH ×2 (11:42→17:03)
[2018-03-18] MEDS: FAMOTIDINE 20 MG/2 ML VIAL IV SCH ×2 (11:42→20:38)
--- NOTE | 2018-03-18 19:52 | Consultation ---
DATE OF CONSULTATION: March 18, 2018 HISTORY OF PRESENT ILLNESS: An 88-year-old female who presented with signs and symptoms suggestive of angioedema. She was given emergency medication with remarkable improvement in overall signs and symptoms. She is currently lying supine and in no apparent distress. Family member visiting. She denies any shortness of breath, nausea and vomiting. She denies any fever and chills. Has an indwelling Ma catheter and non-oliguric. ALLERGIES: HYDROCODONE. CURRENT MEDICATIONS: Allopurinol 300 mg daily. Carvedilol 6.25 b.i.d., gemfibrozil 600 mg once a day, aspirin, folic acid, ondansetron p.r.n., morphine p.r.n., ropinirole 1 mg p.o. b.i.d., liothyronine 5 mcg daily, simvastatin 20 mg at bedtime, famotidine 40 mg q.12. SOCIAL HISTORY: The patient does not smoke or drink. FAMILY HISTORY: Significant for hypertension, prior urinary tract infection, prior GI bleed, history of hypothyroidism, gout, chronic kidney disease stage 4, hyperlipidemia, congestive heart failure, anemia. CURRENT LABS: White count 6.4. Hemoglobin 8.6. Sodium 137, potassium 3.8. Bicarbonate 29. BUN 45. Creatinine 3.89. Urinalysis shows dipstick negative proteins, specific gravity ____, pH 6. Urine microscopy relatively benign. PHYSICAL EXAMINATION: GENERAL: Awake, alert, lying supine in no apparent distress. VITAL SIGNS: Blood pressure 142/71, pulse rate 80. HEAD AND NECK: Cornea clear. Oral mucosa dry. Neck veins flat. LUNGS: Occasional rhonchi scattered bilaterally with no rales. HEART: S1 and S2 audible. ABDOMEN: Soft and nontender. EXTREMITIES: Lower extremities show no edema. IMPRESSION: 1. Ixnce-jm-omnkqkd kidney failure. 2. Underlying chronic kidney disease 4 with worsening kidney function. PLAN: Plan on obtaining 24-hour urine for creatinine clearance and proteins. Discussed with the patient and currently no acute indications for dialysis, but she is heading in that direction. The patient is aware and medications reviewed. Please see orders. Job#: [id number]
[2018-03-18] MEDS: SIMVASTATIN 20 MG TAB PO SCH (20:36)
[2018-03-19] MEDS: SODIUM CHLORIDE 0.9% 1000ML 1,000 ML IV SCH ×2 (00:23→21:32)
[2018-03-19 00:32] VITALS: BP 126/67
[2018-03-19] MEDS: MORPHINE SULFATE 5 MG/ML VIAL IV PRN ×2 (03:43→09:30)
[2018-03-19 04:30] VITALS: BP 142/73
[2018-03-19 05:06] LABS: HEMATOCRIT 26.5 % (34.2-44.1); HEMOGLOBIN 8.7 g/dL (12.0-16.0); LYMPHOCYTES # (AUTO) 0.6 (1.0-3.2); LYMPHOCYTES % 10.9 % (18.0-39.1); MEAN CORPUSCULAR HEMOGLOBIN 30.6 pg (28-32); MEAN CORPUSCULAR HGB CONC 32.8 g/dL (31-35); MEAN CORPUSCULAR VOLUME 93.3 fL (81-99); MONOCYTES # (AUTO) 0.3 (0.2-0.8); NEUTROPHILS # (AUTO) 4.7 (2.1-6.9); NEUTROPHILS % 83.6 % (38.7-80.0); PLATELET COUNT 144 x10e3/uL (140-360); RED BLOOD COUNT 2.84 x10e6/uL (3.6-5.1); RED CELL DISTRIBUTION WIDTH 15.8 % (11.7-14.4)
[2018-03-19 05:17] LABS: ALBUMIN 2.3 g/dL (3.5-5.0); ALBUMIN/GLOBULIN RATIO 0.6 (0.8-2.0); ANION GAP 15.7 mmol/L (8-16); CALCIUM 8.7 mg/dL (8.4-10.2); CREATININE, SERUM 3.05 mg/dL (0.57-1.11); POTASSIUM 3.7 mmol/L (3.5-5.1)
[2018-03-19 09:00] VITALS: BP 142/72
[2018-03-19] MEDS: ASPIRIN 81 MG CHEW TAB PO SCH (09:37)
[2018-03-19] MEDS: ROPINIROLE HCL 1 MG TAB PO SCH ×2 (09:37→17:31)
[2018-03-19] MEDS: GEMFIBROZIL 600 MG TAB PO SCH (09:37)
[2018-03-19] MEDS: LIOTHYRONINE SODIUM 5 MCG TAB PO SCH (09:37)
[2018-03-19] MEDS: ALLOPURINOL 300 MG TAB PO SCH (09:37)
[2018-03-19] MEDS: FAMOTIDINE 20 MG/2 ML VIAL IV SCH ×2 (09:37→21:32)
[2018-03-19] MEDS: FOLIC ACID 1 MG TAB PO SCH (09:37)
[2018-03-19] MEDS: CARVEDILOL 12.5 MG TAB PO SCH ×2 (09:37→17:00)
[2018-03-19] MEDS ORDERED: ACETAMINOPHEN/CODEINE 300MG - 30MG TAB PO PRN ×2 (10:30→10:45)
[2018-03-19 11:48] VITALS: BP 142/69
[2018-03-19 16:34] VITALS: BP 94/74
[2018-03-19 20:00] VITALS: BP 118/69
[2018-03-19] MEDS: SIMVASTATIN 20 MG TAB PO SCH (21:32)
[2018-03-20] VITALS (7 sets, daily range): BP systolic 120–144; BP diastolic 57–87
[2018-03-20] MEDS ORDERED: ACETAMINOPHEN 325 MG TAB PO PRN (07:15)
[2018-03-20] MEDS: LIOTHYRONINE SODIUM 5 MCG TAB PO SCH (07:30)
[2018-03-20] MEDS: GEMFIBROZIL 600 MG TAB PO SCH (07:30)
[2018-03-20] MEDS: CARVEDILOL 12.5 MG TAB PO SCH ×2 (09:00→17:20)
[2018-03-20] MEDS: ROPINIROLE HCL 1 MG TAB PO SCH ×2 (09:00→17:20)
[2018-03-20] MEDS: FOLIC ACID 1 MG TAB PO SCH (09:00)
[2018-03-20] MEDS: ALLOPURINOL 300 MG TAB PO SCH (09:00)
[2018-03-20] MEDS: ASPIRIN 81 MG CHEW TAB PO SCH (09:00)
[2018-03-20] MEDS: FAMOTIDINE 20 MG/2 ML VIAL IV SCH ×2 (09:30→21:45)
[2018-03-20] MEDS: SODIUM CHLORIDE 0.9% 1000ML 1,000 ML IV SCH (16:03)
[2018-03-20] MEDS: SIMVASTATIN 20 MG TAB PO SCH (21:45)
[2018-03-21] VITALS (7 sets, daily range): BP systolic 100–135; BP diastolic 51–63
[2018-03-21 08:12] LABS: BASOPHILS % 0.5 % (0.0-1.0); EOSINOPHILS # (AUTO) 0.3 (0.0-0.4); EOSINOPHILS % 4.2 % (0.0-6.0); HEMATOCRIT 30.4 % (34.2-44.1); HEMOGLOBIN 9.8 g/dL (12.0-16.0); LYMPHOCYTES % 15.4 % (18.0-39.1); MEAN CORPUSCULAR HEMOGLOBIN 30.7 pg (28-32); MEAN CORPUSCULAR HGB CONC 32.2 g/dL (31-35); MEAN CORPUSCULAR VOLUME 95.3 fL (81-99); MONOCYTES # (AUTO) 0.5 (0.2-0.8); MONOCYTES % 6.9 % (4.4-11.3); NEUTROPHILS # (AUTO) 4.7 (2.1-6.9); NEUTROPHILS % 72.7 % (38.7-80.0); PLATELET COUNT 135 x10e3/uL (140-360); RED BLOOD COUNT 3.19 x10e6/uL (3.6-5.1); RED CELL DISTRIBUTION WIDTH 16.3 % (11.7-14.4)
[2018-03-21] MEDS: FOLIC ACID 1 MG TAB PO SCH (09:12)
[2018-03-21] MEDS: ROPINIROLE HCL 1 MG TAB PO SCH ×2 (09:12→16:54)
[2018-03-21] MEDS: FAMOTIDINE 20 MG/2 ML VIAL IV SCH ×2 (09:12→22:00)
[2018-03-21] MEDS: ASPIRIN 81 MG CHEW TAB PO SCH (09:12)
[2018-03-21] MEDS: CARVEDILOL 12.5 MG TAB PO SCH ×2 (09:12→16:51)
[2018-03-21] MEDS: GEMFIBROZIL 600 MG TAB PO SCH (09:12)
[2018-03-21] MEDS: LIOTHYRONINE SODIUM 5 MCG TAB PO SCH (09:12)
[2018-03-21] MEDS: ALLOPURINOL 300 MG TAB PO SCH (09:12)
[2018-03-21] MEDS: SIMVASTATIN 20 MG TAB PO SCH (22:00)
[2018-03-22] VITALS (7 sets, daily range): BP systolic 107–141; BP diastolic 58–86
[2018-03-22 05:11] LABS: BASOPHILS % 0.3 % (0.0-1.0); EOSINOPHILS # (AUTO) 0.3 (0.0-0.4); EOSINOPHILS % 5.3 % (0.0-6.0); HEMATOCRIT 27.2 % (34.2-44.1); HEMOGLOBIN 8.9 g/dL (12.0-16.0); LYMPHOCYTES # (AUTO) 1.3 (1.0-3.2); LYMPHOCYTES % 20.8 % (18.0-39.1); MEAN CORPUSCULAR HEMOGLOBIN 30.6 pg (28-32); MEAN CORPUSCULAR HGB CONC 32.7 g/dL (31-35); MEAN CORPUSCULAR VOLUME 93.5 fL (81-99); MONOCYTES # (AUTO) 0.5 (0.2-0.8); MONOCYTES % 7.4 % (4.4-11.3); NEUTROPHILS % 65.7 % (38.7-80.0); PLATELET COUNT 123 x10e3/uL (140-360); RED BLOOD COUNT 2.91 x10e6/uL (3.6-5.1); RED CELL DISTRIBUTION WIDTH 15.8 % (11.7-14.4)
[2018-03-22 05:47] LABS: ALBUMIN 2.1 g/dL (3.5-5.0); ALBUMIN/GLOBULIN RATIO 0.7 (0.8-2.0); ALKALINE PHOSPHATASE 60 IU/L (40-150); ANION GAP 10.5 mmol/L (8-16); BLOOD UREA NITROGEN 32 mg/dL (7-26); BUN/CREATININE RATIO 15 (6-25); CALCIUM 8.3 mg/dL (8.4-10.2); CARBON DIOXIDE 27 mmol/L (22-29); CHLORIDE 106 mmol/L (98-107); CREATININE, SERUM 2.09 mg/dL (0.57-1.11); EST GLOMERULAR FILTRATION RATE 22 ML/MIN (60-); GLUCOSE 84 mg/dL (74-118); POTASSIUM 3.5 mmol/L (3.5-5.1); SODIUM 140 mmol/L (136-145)
[2018-03-22 06:01] LABS: ALANINE AMINOTRANSFERASE < 6 IU/L (0-55)
[2018-03-22] MEDS: FAMOTIDINE 20 MG/2 ML VIAL IV SCH ×2 (08:31→20:38)
[2018-03-22] MEDS: GEMFIBROZIL 600 MG TAB PO SCH (08:31)
[2018-03-22] MEDS: ASPIRIN 81 MG CHEW TAB PO SCH (08:31)
[2018-03-22] MEDS: LIOTHYRONINE SODIUM 5 MCG TAB PO SCH (08:31)
[2018-03-22] MEDS: FLUCONAZOLE 100 MG TAB PO SCH (08:32)
[2018-03-22] MEDS: ROPINIROLE HCL 1 MG TAB PO SCH ×2 (08:32→16:10)
[2018-03-22] MEDS: ALLOPURINOL 300 MG TAB PO SCH (08:32)
[2018-03-22] MEDS: CARVEDILOL 12.5 MG TAB PO SCH ×2 (08:32→16:10)
[2018-03-22] MEDS: FOLIC ACID 1 MG TAB PO SCH (08:32)
[2018-03-22] MEDS: SIMVASTATIN 20 MG TAB PO SCH (20:38)
[2018-03-23 01:03] VITALS: BP 128/60
[2018-03-23 05:37] VITALS: BP 118/59
[2018-03-23 07:00] VITALS: BP 134/65
[2018-03-23] MEDS: LIOTHYRONINE SODIUM 5 MCG TAB PO SCH (08:35)
[2018-03-23] MEDS: GEMFIBROZIL 600 MG TAB PO SCH (08:35)
[2018-03-23] MEDS: FAMOTIDINE 20 MG/2 ML VIAL IV SCH ×2 (08:35→20:38)
[2018-03-23] MEDS: ASPIRIN 81 MG CHEW TAB PO SCH (08:35)
[2018-03-23] MEDS: ROPINIROLE HCL 1 MG TAB PO SCH ×2 (08:36→16:14)
[2018-03-23] MEDS: FLUCONAZOLE 100 MG TAB PO SCH (08:36)
[2018-03-23] MEDS: CARVEDILOL 12.5 MG TAB PO SCH ×2 (08:36→16:14)
[2018-03-23] MEDS: ALLOPURINOL 300 MG TAB PO SCH (08:36)
[2018-03-23] MEDS: FOLIC ACID 1 MG TAB PO SCH (08:36)
[2018-03-23 08:57] VITALS: BP 134/65
[2018-03-23 12:09] VITALS: BP 119/58
[2018-03-23] MEDS ORDERED: POTASSIUM CHLORIDE 20 MEQ TAB CR PO STA (12:23)
[2018-03-23 20:29] VITALS: BP 131/71
[2018-03-23] MEDS: SIMVASTATIN 20 MG TAB PO SCH (20:38)
[2018-03-24 08:00] VITALS: BP 119/56
[2018-03-24] MEDS: FOLIC ACID 1 MG TAB PO SCH (08:18)
[2018-03-24] MEDS: CARVEDILOL 12.5 MG TAB PO SCH ×2 (08:18→16:43)
[2018-03-24] MEDS: FAMOTIDINE 20 MG/2 ML VIAL IV SCH ×2 (08:18→21:07)
[2018-03-24] MEDS: FLUCONAZOLE 100 MG TAB PO SCH (08:18)
[2018-03-24] MEDS: LIOTHYRONINE SODIUM 5 MCG TAB PO SCH (08:18)
[2018-03-24] MEDS: GEMFIBROZIL 600 MG TAB PO SCH (08:18)
[2018-03-24] MEDS: ASPIRIN 81 MG CHEW TAB PO SCH (08:18)
[2018-03-24] MEDS: ROPINIROLE HCL 1 MG TAB PO SCH ×2 (08:18→16:43)
[2018-03-24] MEDS: ALLOPURINOL 300 MG TAB PO SCH (08:18)
[2018-03-24 10:19] VITALS: BP 119/56
[2018-03-24 12:00] VITALS: BP 132/63
[2018-03-24 16:00] VITALS: BP 134/81
--- NOTE | 2018-03-24 17:11 | Consultation ---
DATE OF CONSULTATION: March 24, 2018 REHAB CONSULTATION REFERRING PHYSICIAN: Dr. Ramon Salvador. I would like to thank Dr. Salvador for asking me to see Mrs. Wolfe in consultation. REASON FOR CONSULTATION 1. Angioedema. 2. Difficulty with djt-uh-zlawmd, leg weakness. 3. Right knee and right hip arthritis. 4. Chronically dislocated right shoulder. HISTORY: Patient is an 88-year-old female who lives in an assisted living facility, who back in April fell. At that time they thought that she just had arthritis. She had been having limited use of her right upper extremity. Came into the hospital recently because of symptoms of angioedema, was seen by Dr. Mei Neumann for renal management. Discovered to have a right shoulder dislocation, was seen by Dr. You. At this time, because it has been out for so long, patient is not going to go under surgery and just treat it symptomatically. Her problem now is that she lives in an assisted living facility. Since she has been in the hospital, she has had difficulty with sta-oo-qltmi and getting out of the chair and walking and mobilizing and doing ADLs. Those basics are required for her to go back to assisted living even though she has a reservoir caretaker. I am being asked to evaluate to see if she meets criteria to go to inpatient rehab so we can address those issues and get her back to her home situation, i.e., the assisted living. PAST MEDICAL HISTORY: Hypertension, CKD, chronic anemia, and most recent angioedema. SURGERIES: Noncontributory. ALLERGIES: HYDROCODONE. SOCIAL HISTORY: Lives at the assisted living [facility]. Was fairly functional, able to go down to the cafeteria, et cetera. Due to the fact that she still had her dislocation back in April, she was still fairly functional with the help of her showroom sales assistant. FAMILY HISTORY: Hypertension runs in the family. White cell count of 6, hemoglobin 8.9, hematocrit 27.2, platelets of 123. Sodium is 140, potassium is 3.5, BUN of 32, creatinine 2.09. IMAGING: Patient's shoulder x-ray was done which showed a chronic anterior glenohumeral dislocation. A chest x-ray showed no acute thoracic abnormality. PHYSICAL EXAMINATION GENERAL: Patient is awake and she is alert, very pleasant. She has edema and some bruising to the arms and legs bilaterally. EYES: Gaze is conjugate. ORAL: Tongue is midline. No dysarthria. NECK: Supple. HEART: Regular. LUNGS: Diminished breath sounds. ABDOMEN: Moderately obese. Nontender, nondistended. EXTREMITIES: Had limited active movement to the right hip and knee secondary to arthritis that is chronic, not new. She could wiggle her ankle. Left leg, she had functional range of motion of the left leg. In the right shoulder where her shoulder is dislocated, she had minimal movement to the shoulder actively. She could move, but it hurt a lot. Elbow flexion and extension and flavor maker were actually within functional limits, and she had a functional range of motion of the left upper extremity. She is usavf-dklu-cyupirxl. MANUAL MUSCLE TESTING: Left arm 4+/5 strength throughout. Left leg 4+/5 to 5 strength throughout. Right upper extremity, shoulder flexion and extension is 1/5 to 2/5 strength with an achievable range of motion. Elbow flexion, extension and flavor maker were 3+/5 to 4-/5 on the right. In the right lower extremity, hip and knee flexion and extension was limited secondary to OA. She could flex and extend her knee a bit but was limited. No increased swelling was noted. She does have a lot of bruising to both lower extremities, and she has a dressing to a water blister on the left distal lower leg. IMPRESSION 1. Right shoulder dislocation, chronic, is being treated symptomatically. 2. 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 Difficulty with transfers, gait and ADLs, especially with just bed rest here. 3. Recent episodes of angioedema. Currently under current medical management is doing better. 4. Hypertension. 5. Anemia of chronic disease. 6. Peripheral artery disease. 7. Chronic kidney disease. PLAN: I spoke with the patient and her reservoir caretaker at length. The only way that the assisted living will take her back is if she can do independent transfers in and out of a chair and the cafeteria. She was actually doing this fairly well before she fell ill, and she has a reservoir caretaker who can help her. The fact that her shoulder is dislocated and no surgery is going to be done will not really affect her because it has been going on since April and patient has become somewhat functional although we probably could get her more functional. I feel that because of her medical issues, i.e., her angioedema, her hypertension, her kidney disease, her anemia and other pain issues she could benefit from inpatient program with coordination of care between PT, OT and nursing working in a coordinated fashion to optimize functional level so that we can (a) get her back up and mobilizing and transferring safely and (b) hopefully get her back to assisted living. Family agrees with this according to the reservoir caretaker and the patient. Thank you once again for allowing me to participate in the care of this very pleasant and interesting patient. Job#: [id number]
[2018-03-24 20:00] VITALS: BP 137/76
[2018-03-24 21:00] VITALS: BP 137/76
[2018-03-24] MEDS: SIMVASTATIN 20 MG TAB PO SCH (21:07)
[2018-03-25] VITALS: BP 122/61
[2018-03-25 04:00] VITALS: BP 131/66
[2018-03-25 05:13] LABS: ALBUMIN 2.1 g/dL (3.5-5.0); ALBUMIN/GLOBULIN RATIO 0.7 (0.8-2.0); ALKALINE PHOSPHATASE 58 IU/L (40-150); ANION GAP 10.9 mmol/L (8-16); BLOOD UREA NITROGEN 28 mg/dL (7-26); BUN/CREATININE RATIO 15 (6-25); CALCIUM 8.5 mg/dL (8.4-10.2); CARBON DIOXIDE 24 mmol/L (22-29); CHLORIDE 106 mmol/L (98-107); CREATININE, SERUM 1.86 mg/dL (0.57-1.11); EST GLOMERULAR FILTRATION RATE 26 ML/MIN (60-); GLUCOSE 82 mg/dL (74-118); POTASSIUM 4.9 mmol/L (3.5-5.1); SODIUM 136 mmol/L (136-145)
[2018-03-25 05:27] LABS: ALANINE AMINOTRANSFERASE < 6 IU/L (0-55)
[2018-03-25 06:05] LABS: BASOPHILS # (AUTO) 0.1 (0.0-0.1); BASOPHILS % 0.8 % (0.0-1.0); EOSINOPHILS # (AUTO) 0.7 (0.0-0.4); EOSINOPHILS % 11.9 % (0.0-6.0); HEMATOCRIT 28.5 % (34.2-44.1); HEMOGLOBIN 9.3 g/dL (12.0-16.0); LYMPHOCYTES # (AUTO) 1.6 (1.0-3.2); LYMPHOCYTES % 25.3 % (18.0-39.1); MEAN CORPUSCULAR HEMOGLOBIN 30.6 pg (28-32); MEAN CORPUSCULAR HGB CONC 32.6 g/dL (31-35); MEAN CORPUSCULAR VOLUME 93.8 fL (81-99); MONOCYTES # (AUTO) 0.5 (0.2-0.8); MONOCYTES % 8.5 % (4.4-11.3); NEUTROPHILS # (AUTO) 3.2 (2.1-6.9); NEUTROPHILS % 52.5 % (38.7-80.0); PLATELET COUNT 162 x10e3/uL (140-360); RED BLOOD COUNT 3.04 x10e6/uL (3.6-5.1); RED CELL DISTRIBUTION WIDTH 16.1 % (11.7-14.4)
[2018-03-25 08:00] VITALS: BP 131/71
[2018-03-25] MEDS: ROPINIROLE HCL 1 MG TAB PO SCH ×2 (09:21→17:30)
[2018-03-25] MEDS: CARVEDILOL 12.5 MG TAB PO SCH ×2 (09:21→16:46)
[2018-03-25] MEDS: ALLOPURINOL 300 MG TAB PO SCH (09:21)
[2018-03-25] MEDS: GEMFIBROZIL 600 MG TAB PO SCH (09:21)
[2018-03-25] MEDS: FLUCONAZOLE 100 MG TAB PO SCH (09:21)
[2018-03-25] MEDS: ASPIRIN 81 MG CHEW TAB PO SCH (09:21)
[2018-03-25] MEDS: LIOTHYRONINE SODIUM 5 MCG TAB PO SCH (09:21)
[2018-03-25] MEDS: FOLIC ACID 1 MG TAB PO SCH (09:21)
[2018-03-25] MEDS: FAMOTIDINE 20 MG/2 ML VIAL IV SCH (09:21)
[2018-03-25 12:00] VITALS: BP 133/86
[2018-03-25 16:00] VITALS: BP 94/45
[2018-03-25 17:41] VITALS: BP 96/45
== END 2018-03-25 19:36 | DRG 684 ==
LOC: ER 01:03 → ERHOLD 04:11 → MED/SURG2 04:20
PROVIDERS: ADMIT Internal Medicine; ATTEND Internal Medicine
DX: N17.9 Acute kidney failure, unspecified (principal); T78.3XXA Angioneurotic edema, initial encounter; N18.4 Chronic kidney disease, stage 4 (severe); M24.411 Recurrent dislocation, right shoulder; M16.11 Unilateral primary osteoarthritis, right hip; M17.11 Unilateral primary osteoarthritis, right knee; E03.9 Hypothyroidism, unspecified; E11.22 Type 2 diabetes mellitus with diabetic chronic kidney disease; Z79.4 Long term (current) use of insulin; I12.9 Hypertensive chronic kidney disease with stage 1 through stage 4 chronic kidney disease, or unspecified chronic kidney disease; M10.9 Gout, unspecified; Z95.810 Presence of automatic (implantable) cardiac defibrillator; I48.91 Unspecified atrial fibrillation; Z79.01 Long term (current) use of anticoagulants; E11.51 Type 2 diabetes mellitus with diabetic peripheral angiopathy without gangrene
CPT/HCPCS: 36415; 51700; 71045; 80053; 81001; 82550; 82553; 83518; 83735; 83880; 84484; 85025; 85610; 85730; 86850; 86900; 87070; 87086; 99284; J1200; J2270; J7030; J7040

== ENCOUNTER 2019-03-23 15:27 | Emergency (ER) | payer MEDICARE, OTHER ==
[~2019-03-23] VITALS: Ht 175.3 cm; Wt 69.9 kg
[~2019-03-23 15:27] MED LIST changes: +CARVEDILOL6.25 MG PO; +FISH OIL 1,2001 EACH; +GEMFIBROZIL600 MG PO
[2019-03-23 17:17] LABS: BASOPHILS % 0.6 % (0.0-1.0); EOSINOPHILS # (AUTO) 0.2 (0.0-0.4); HEMATOCRIT 34.9 % (34.2-44.1); HEMOGLOBIN 11.3 g/dL (12.0-16.0); LYMPHOCYTES % 19.2 % (18.0-39.1); MEAN CORPUSCULAR HEMOGLOBIN 31.7 pg (28-32); MEAN CORPUSCULAR HGB CONC 32.4 g/dL (31-35); MONOCYTES # (AUTO) 0.3 (0.2-0.8); MONOCYTES % 5.7 % (4.4-11.3); NEUTROPHILS # (AUTO) 3.5 (2.1-6.9); NEUTROPHILS % 71.1 % (38.7-80.0); PLATELET COUNT 171 x10e3/uL (140-360); RED BLOOD COUNT 3.56 x10e6/uL (3.6-5.1); RED CELL DISTRIBUTION WIDTH 14.1 % (11.7-14.4)
[2019-03-23 17:29] LABS: ALBUMIN 3.1 g/dL (3.5-5.0); ANION GAP 12.2 mmol/L (8-16); CREATININE, SERUM 2.18 mg/dL (0.57-1.11); POTASSIUM 3.2 mmol/L (3.5-5.1)
[2019-03-23 17:36] LABS: CREATINE KINASE MB 1.9 ng/mL (0-5.0)
[2019-03-23 18:14] LABS: BILIRUBIN,URINE NEGATIVE (NEGATIVE); CLARITY,URINE SL CLOUDY (CLEAR); COLOR,URINE YELLOW (YELLOW); KETONES,URINE NEGATIVE (NEGATIVE); LEUKOCYTE ESTERASE ,URINE NEGATIVE (NEGATIVE); NITRITE,URINE NEGATIVE (NEGATIVE); PROTEIN,URINE DIPSTICK NEGATIVE (NEGATIVE); URINE UROBILINOGEN 0.2 mg/dL (0.2 - 1)
[2019-03-23 18:24] LABS: BACTERIA,URINE FEW /HPF; EPITHELIAL CELLS,URINE RARE /LPF
--- NOTE | 2019-03-23 19:41 | NUR ---
Pt caregiver arrived at this time to excelsior picker patient.
[2019-03-23] MEDS ORDERED: CLINDAMYCIN HC150 MG PO (19:55)
== END 2019-03-23 19:58 | disposition home or self-care (01) ==
LOC: ER 15:27
DX: R53.1 Weakness (principal); L03.116 Cellulitis of left lower limb; R26.2 Difficulty in walking, not elsewhere classified; E03.9 Hypothyroidism, unspecified; I25.10 Atherosclerotic heart disease of native coronary artery without angina pectoris
CPT/HCPCS: 36415; 80053; 81001; 82550; 82553; 84484; 85025; 87086; 93005; 99284

== ENCOUNTER 2019-06-22 11:26 | Emergency (ER) | payer MEDICARE ==
[~2019-06-22] VITALS: Ht 175.3 cm; Wt 69.9 kg
[~2019-06-22 11:26] MED LIST changes: +CLINDAMYCIN HC150 MG PO
[2019-06-22] MEDS ORDERED: ONDANSETRON HCL INJ 2MG/ML 2ML 2 MG/ML VIAL IV STA (11:32)
[2019-06-22] MEDS ORDERED: SODIUM CHLORIDE 0.9% 1000ML 1,000 ML IV STA (11:32)
[2019-06-22] MEDS ORDERED: MORPHINE SULFATE INJ 4 MG/ML INJ 1ML IV STA (11:32)
--- NOTE | 2019-06-22 12:14 | Diagnostic Imaging Report ---
EXAMINATION: CHEST SINGLE (PORTABLE) INDICATION: Abdominal pain COMPARISON: Chest radiograph of 03/18/2018 FINDINGS: LINES/TUBES:EKG leads overlie the chest. Left chest AICD unchanged. LUNGS:The lungs are mildly hyperinflated. No focal consolidation or pulmonary edema. PLEURA:No pleural effusion or pneumothorax. MEDIASTINUM:Cardiomediastinal silhouette is stably enlarged. Atherosclerotic calcifications of the thoracic aorta. BONES/SOFT TISSUES:Chronic anterior dislocation of the right glenohumeral joint. Severe degenerative changes of the left glenohumeral joint. ABDOMEN:No free air under the diaphragm. IMPRESSION: Mildly hyperinflated lungs. No focal pneumonia or pulmonary edema. Chronic anterior right shoulder dislocation. Severe left glenohumeral degenerative changes. Signed by: Vito Garcia MD on 06/22/2019 12:11 PM
[2019-06-22 12:24] LABS: BASOPHILS # (AUTO) 0.1 (0.0-0.1); BASOPHILS % 0.9 % (0.0-1.0); EOSINOPHILS # (AUTO) 0.3 (0.0-0.4); EOSINOPHILS % 4.7 % (0.0-6.0); HEMOGLOBIN 11.1 g/dL (12.0-16.0); LYMPHOCYTES # (AUTO) 1.2 (1.0-3.2); LYMPHOCYTES % 21.7 % (18.0-39.1); MEAN CORPUSCULAR HEMOGLOBIN 30.9 pg (28-32); MEAN CORPUSCULAR HGB CONC 31.7 g/dL (31-35); MEAN CORPUSCULAR VOLUME 97.5 fL (81-99); MONOCYTES # (AUTO) 0.4 (0.2-0.8); MONOCYTES % 6.6 % (4.4-11.3); NEUTROPHILS # (AUTO) 3.5 (2.1-6.9); NEUTROPHILS % 65.7 % (38.7-80.0); PLATELET COUNT 178 x10e3/uL (140-360); RED BLOOD COUNT 3.59 x10e6/uL (3.6-5.1); RED CELL DISTRIBUTION WIDTH 13.7 % (11.7-14.4)
[2019-06-22 12:36] LABS: BILIRUBIN,URINE NEGATIVE (NEGATIVE); CLARITY,URINE CLEAR (CLEAR); COLOR,URINE YELLOW (YELLOW); KETONES,URINE NEGATIVE (NEGATIVE); LEUKOCYTE ESTERASE ,URINE TRACE (NEGATIVE); NITRITE,URINE NEGATIVE (NEGATIVE); PROTEIN,URINE DIPSTICK NEGATIVE (NEGATIVE); URINE UROBILINOGEN 0.2 mg/dL (0.2 - 1)
[2019-06-22 12:45] LABS: ALBUMIN 2.8 g/dL (3.5-5.0); ALBUMIN/GLOBULIN RATIO 0.8 (0.8-2.0); ANION GAP 12.1 mmol/L (8-16); CALCIUM 8.9 mg/dL (8.4-10.2); CREATININE, SERUM 2.02 mg/dL (0.57-1.11); POTASSIUM 3.1 mmol/L (3.5-5.1)
[2019-06-22 12:49] LABS: AMORPHOUS SEDIMENT,URINE MODERATE (FEW); BACTERIA,URINE MANY /HPF; EPITHELIAL CELLS,URINE MODERATE /LPF; RBC,URINE 0-5 /HPF (0-5)
[2019-06-22 12:55] LABS: CREATINE KINASE MB 1.5 ng/mL (0-5.0)
[2019-06-22] MEDS ORDERED: POTASSIUM CHLORIDE 20 MEQ TAB CR PO ONE (14:00)
[2019-06-22] MEDS ORDERED: CEFTRIAXONE SOD 1 GM/NS 50 ML 50 ML IV ONE (14:00)
--- NOTE | 2019-06-22 14:43 | Diagnostic Imaging Report ---
EXAM: CT Abdomen and Pelvis WITHOUT intravenous contrast INDICATION: Abdominal pain, swelling COMPARISON: Chest radiograph of earlier the same day. TECHNIQUE: Abdomen and pelvis were scanned utilizing a multidetector helical scanner from the lung base to the pubic symphysis without administration of IV contrast. Coronal and sagittal reformations were obtained. IV CONTRAST: None ORAL CONTRAST: Water COMPLICATIONS: None RADIATION DOSE: Total DLP: 431.9 mGy*cm Dose modulation, iterative reconstruction, and/or weight based adjustment of the mA/kV was utilized to reduce the radiation dose to as low as reasonably achievable. FINDINGS: LOWER THORAX: No focal consolidation. Mild bibasilar dependent subsegmental atelectasis. Partial visualization of pacemaker lead. HEPATOBILIARY: No focal hepatic lesions. No biliary ductal dilatation. Nonvisualization of the gallbladder. SPLEEN: No splenomegaly. PANCREAS: Nonvisualization of distal pancreatic body and tail. No definite pancreatic ductal dilation. ADRENALS: No adrenal nodules. KIDNEYS/URETERS: 3 mm nonobstructive left midpole renal calculus. No hydronephrosis. No right-sided renal calculi. 5.0 cm right lower pole renal cyst. 3.0 cm exophytic left lower pole renal cyst. PELVIC ORGANS/BLADDER: Status post hysterectomy. PERITONEUM / RETROPERITONEUM: No free air or fluid. LYMPH NODES: No lymphadenopathy. VESSELS: Diffuse atherosclerotic calcifications of the abdominal aorta and major branches. GI TRACT: Severe sigmoid diverticulosis. No CT evidence of diverticulitis. No abnormal bowel wall thickening. No bowel obstruction. BONES AND SOFT TISSUES: Wide neck lower abdominal ventral hernia containing loops of small and large bowel and mesenteric fat. No evidence of incarceration or strangulation. Diffuse skeletal muscular atrophy. Mild diffuse subcutaneous soft tissue edema. No acute osseous injury. Diffuse osteopenia. Severe multilevel degenerative changes of the lumbar spine. Grade 1 retrolisthesis at L1-2 and L2-3. Grade 1 anterolisthesis at L4-5. No suspicious lytic or blastic lesions. IMPRESSION: Lower abdominal ventral hernia contains loops of small and large bowel and mesenteric fat. No evidence of incarceration or reticulation. Severe multilevel degenerative changes of the lumbar spine with alignment abnormalities as above. Severe sigmoid diverticulosis. No CT evidence of diverticulitis. 3 mm nonobstructive left midpole renal calculus. No hydronephrosis. Bilateral renal cysts as above. Signed by: Vito Garcia MD on 06/22/2019 2:39 PM
[2019-06-22 15:23] VITALS: BP 76/65
== END 2019-06-22 16:08 | disposition home or self-care (01) ==
LOC: ER 11:26
DX: R14.0 Abdominal distension (gaseous) (principal); K43.9 Ventral hernia without obstruction or gangrene
CPT/HCPCS: 36415; 71045; 74176; 80053; 81001; 82550; 82553; 83605; 83690; 84484; 85025; 99285; J0696

== ENCOUNTER 2019-11-23 11:41 | Inpatient (IN) | payer MEDICARE, OTHER ==
[~2019-11-23] VITALS: Ht 175.3 cm; Wt 82.2 kg
[~2019-11-23 11:41] MED LIST changes: +DOCUSATE SODIU100 MG PO; +FLUDROCORTISON0.1 MG PO; +POTASSIUM CHLO10 ME1 PO; +TYLENOL # 31 EA PO; +VITAMIN D32000 UNI1 PO
[2019-11-23 12:37] LABS: BASOPHILS % 0.6 % (0.0-1.0); EOSINOPHILS # (AUTO) 0.1 (0.0-0.4); EOSINOPHILS % 1.6 % (0.0-6.0); HEMOGLOBIN 11.7 g/dL (12.0-16.0); LYMPHOCYTES # (AUTO) 1.1 (1.0-3.2); LYMPHOCYTES % 16.7 % (18.0-39.1); MEAN CORPUSCULAR HEMOGLOBIN 28.8 pg (28-32); MEAN CORPUSCULAR HGB CONC 31.6 g/dL (31-35); MEAN CORPUSCULAR VOLUME 91.1 fL (81-99); MONOCYTES # (AUTO) 0.6 (0.2-0.8); MONOCYTES % 8.9 % (4.4-11.3); NEUTROPHILS # (AUTO) 4.6 (2.1-6.9); NEUTROPHILS % 71.6 % (38.7-80.0); PLATELET COUNT 156 x10e3/uL (140-360); RED BLOOD COUNT 4.06 x10e6/uL (3.6-5.1); RED CELL DISTRIBUTION WIDTH 15.8 % (11.7-14.4)
[2019-11-23 13:04] LABS: PARTIAL THROMBOPLASTIN TIME 39.3 seconds (23.8-35.5)
[2019-11-23 13:06] LABS: ALBUMIN 2.7 g/dL (3.5-5.0); ALBUMIN/GLOBULIN RATIO 0.7 (0.8-2.0); ANION GAP 11.8 mmol/L (8-16); CALCIUM 8.9 mg/dL (8.4-10.2); CREATININE, SERUM 2.43 mg/dL (0.57-1.11); POTASSIUM 3.8 mmol/L (3.5-5.1)
[2019-11-23 13:13] LABS: CREATINE KINASE MB 1.7 ng/mL (0-5.0)
[2019-11-23 13:36] LABS: INR 1.16; PROTHROMBIN TIME 15.6 seconds (11.9-14.5)
[2019-11-23] MEDS ORDERED: SODIUM CHLORIDE 0.9% 500ML 500 ML IV ONE (13:45)
[2019-11-23 14:14] LABS: COLOR,URINE YELLOW (YELLOW)
[2019-11-23 14:15] LABS: CLARITY,URINE CLEAR (CLEAR); LEUKOCYTE ESTERASE ,URINE TRACE (NEGATIVE); NITRITE,URINE NEGATIVE (NEGATIVE); PROTEIN,URINE DIPSTICK 1+ (NEGATIVE)
[2019-11-23 14:16] LABS: BILIRUBIN,URINE SMALL (NEGATIVE); KETONES,URINE NEGATIVE (NEGATIVE); URINE UROBILINOGEN 0.2 mg/dL (0.2 - 1)
[2019-11-23 14:25] LABS: BACTERIA,URINE MODERATE /HPF; EPITHELIAL CELLS,URINE MANY /LPF
--- NOTE | 2019-11-23 15:42 | Diagnostic Imaging Report ---
EXAMINATION: CHEST SINGLE (PORTABLE) INDICATION: Shortness of breath COMPARISON: Chest radiograph 10/08/2019 FINDINGS: LINES/TUBES:Left chest pacer. EKG leads overlie the chest. LUNGS:The lungs are moderately inflated. There is left basilar opacity silhouetting the left carlos diaphragm. Hazy opacity at the right lung base. PLEURA:Possible small layering bilateral pleural effusions. No pneumothorax. MEDIASTINUM:The cardiomediastinal silhouette appears unchanged in size and shape. Atherosclerotic calcifications of the thoracic aorta. BONES/SOFT TISSUES:No acute osseous injury. Unchanged chronic dislocation of the right glenohumeral joint. ABDOMEN:No free air under the diaphragm. IMPRESSION: Unchanged left greater than right bibasilar opacities. Possible small layering bilateral pleural effusions. Central pulmonary vascular congestion. Unchanged chronic right glenohumeral joint dislocation. Signed by: Vito Garcia MD on 11/23/2019 3:40 PM
[2019-11-23] MEDS ORDERED: MORPHINE SULFATE 2 MG/ML SYR 1ML IV PRN (16:00)
[2019-11-23] MEDS ORDERED: ONDANSETRON HCL INJ 2MG/ML 2ML 2 MG/ML VIAL IV PRN (16:00)
[2019-11-23] MEDS ORDERED: SODIUM CHLORIDE 0.9% 1000ML 1,000 ML IV ONE (16:00)
[2019-11-23] MEDS: MEROPENEM 500MG/ NS 50ML 50 ML IV SCH (16:28)
--- NOTE | 2019-11-23 19:00 | NUR ---
Report given to Jessica PITT of patient's status. Awaiting for patient to be brought from ER.
--- NOTE | 2019-11-23 19:02 | NUR ---
report given from dayshift RN patient pending arrival to the floor
[2019-11-23 19:10] VITALS: BP 124/61
[2019-11-23 20:00] VITALS: BP 124/61
[2019-11-23 20:15] VITALS: BP 124/61
[2019-11-23 21:06] LABS: CREATINE KINASE MB 1.7 ng/mL (0-5.0)
--- NOTE | 2019-11-23 23:55 | NUR ---
patient seen attempting to pull out her EJ and hurst, patient is agitated and confused, stating "How many of yall live here", attempted to reorient patient she stated "Where yall come to ", charge antonina at bedside attempting to keep her from pulling out lines, MD Salvador contact via telephone, paged awaiting call back for orders
[2019-11-24] VITALS (11 sets, daily range): BP systolic 120–153; BP diastolic 54–89
[2019-11-24] MEDS ORDERED: ZIPRASIDONE 20 MG VIAL IM STA (00:01)
--- NOTE | 2019-11-24 00:05 | NUR ---
PATIENT ATTEMPTING TO HIT STAFF, SWUNG HER LEFT ARM AND ATTEMPTED TO GET STAFF AT BEDSIDE, MISSED AND HIT BED, NEW SKIN TEAR PRESENT LEFT LOWER FOREARM, CARE GIVEN TO ARM CLEANSED AND COVER WITH GAUZE AND COBAN
--- NOTE | 2019-11-24 00:10 | NUR ---
MD PACE MADE AWARE OF PATIENT AGITATION, AND ATTEMPTING TO PULL OUT EJ, ORDERED TO GIVEN GEODON IM q8h, ATIVAN 0.5MG q8h prn, PATIENT GIVEN GEODON IM, LEFT OUTER THIGH, SITE INTACT, NO PAIN NO SWELLING NOTED WILL CONTINUE TO MONITOR
--- NOTE | 2019-11-24 01:00 | NUR ---
HOURLY ROUNDING, PATIENT SEEN SLEEPING, NO AGITATION NOTED, NO DISTRESS NOTED, CALL LIGHT WITHIN REACH, BED ALARM ON FOR SAFETY
[2019-11-24] MEDS ORDERED: ZIPRASIDONE 20 MG VIAL IM PRN (02:15)
[2019-11-24] MEDS: LORAZEPAM INJ 2 MG/ML VIAL IV PRN (02:31)
--- NOTE | 2019-11-24 04:19 | NUR ---
DURING HOURLY ROUNDING PATIENT SEEN WITH TELEMETRY BOX PULLED OFF, AND LEFT NECK EJ SITTING IN LAB, CATHETER INTACT, PATIENT STATES "IT WAS ITCHING", ER CALLED FOR ASSISTANCE TO REPLACE EJ LIBRA
[2019-11-24] MEDS: MEROPENEM 500MG/ NS 50ML 50 ML IV SCH ×2 (04:30→16:00)
--- NOTE | 2019-11-24 04:41 | NUR ---
ER CALLED AGAIN FOR ASSIST WITH IV START ON PATIENT, STATED "THEY ARE BUSY THEY HAVE A CODE STEMI AT THIS TIME AND WILL COME IF THEY CAN"
[2019-11-24] MEDS ORDERED: DOCUSATE SODIUM 100 MG CAP PO PRN (05:00)
[2019-11-24 05:39] LABS: BASOPHILS # (AUTO) 0.1 (0.0-0.1); BASOPHILS % 0.8 % (0.0-1.0); EOSINOPHILS # (AUTO) 0.1 (0.0-0.4); EOSINOPHILS % 1.9 % (0.0-6.0); HEMATOCRIT 39.4 % (34.2-44.1); HEMOGLOBIN 12.2 g/dL (12.0-16.0); LYMPHOCYTES # (AUTO) 1.3 (1.0-3.2); LYMPHOCYTES % 20.4 % (18.0-39.1); MEAN CORPUSCULAR HEMOGLOBIN 28.6 pg (28-32); MEAN CORPUSCULAR VOLUME 92.5 fL (81-99); MONOCYTES # (AUTO) 0.6 (0.2-0.8); MONOCYTES % 8.6 % (4.4-11.3); NEUTROPHILS # (AUTO) 4.3 (2.1-6.9); NEUTROPHILS % 67.7 % (38.7-80.0); PLATELET COUNT 166 x10e3/uL (140-360); RED BLOOD COUNT 4.26 x10e6/uL (3.6-5.1); RED CELL DISTRIBUTION WIDTH 15.9 % (11.7-14.4)
[2019-11-24 06:05] LABS: ALBUMIN 2.8 g/dL (3.5-5.0); ALBUMIN/GLOBULIN RATIO 0.8 (0.8-2.0); ANION GAP 15.2 mmol/L (8-16); CALCIUM 8.7 mg/dL (8.4-10.2); CREATININE, SERUM 2.32 mg/dL (0.57-1.11); POTASSIUM 4.2 mmol/L (3.5-5.1)
[2019-11-24 06:23] LABS: CREATINE KINASE MB 1.9 ng/mL (0-5.0)
--- NOTE | 2019-11-24 07:05 | NUR ---
RCD PT AT BED PT IS ALERT AND ORIENTED PT RESTING ON BED IV PATENT BY SALINE FLUSH , HART DRAINING BY GRAVITY BED LOW AND LOCKED CALL LIGHT IN REACH
[2019-11-24] MEDS: ROPINIROLE HCL 1 MG TAB PO SCH ×2 (09:00→17:00)
[2019-11-24] MEDS: LIOTHYRONINE SODIUM 5 MCG TAB PO SCH (09:00)
[2019-11-24] MEDS: ASPIRIN 81 MG CHEW TAB PO SCH (09:00)
[2019-11-24] MEDS: AMIODARONE HCL 200 MG TAB PO SCH (09:00)
[2019-11-24] MEDS: ALLOPURINOL 300 MG TAB PO SCH (09:00)
[2019-11-24] MEDS: GEMFIBROZIL 600 MG TAB PO SCH (09:00)
[2019-11-24] MEDS: POTASSIUM CHLORIDE 10MEQ EA PO SCH (09:00)
[2019-11-24] MEDS: ESTRADIOL 1 MG TAB PO SCH (09:00)
[2019-11-24] MEDS: FUROSEMIDE 40 MG TAB PO SCH ×2 (09:00→17:00)
[2019-11-24] MEDS: FLUDROCORTISONE ACETATE 0.1 MG TAB PO SCH (09:00)
[2019-11-24] MEDS: FOLIC ACID 1 MG TAB PO SCH (09:00)
--- NOTE | 2019-11-24 10:37 | NUR ---
WOUND CARE CONSULT FOR 89 YO FEMALE HX OF_UTI AMOR 11 ON STRICT PUP STATUS AND INTERVENTIONS AND ALTERNATING PRESSURE MATTRESS LABS: WBC-6.41 HGB_12.2 GLUCOSE-81 SKIN ASSESSMENT COMPLETE PATIENT PRESENTS WITH BILATERAL ARM AND LEG SKIN TEARS SMALL UNSTAGEABLE ULCER RT HEEL .5CMX.5CM DARK SCAB RT 1ST MET HEAD ULCERATION [id number] X.1 BLISTER HEALING STAGE 2 ULCERATION TO SACRUM .5CM X.5CM PINK UNOPEN AREA SURROUNDED BY DARK BLANCHABLE RUBENS AREA RECOMMENDATIONS: NURSING TO CONTINUE TO MAINTAIN STRICT PUP STATUS AND INTERVENTIONS AND ALTERNATING PRESSURE MATTRESS NURSING TO CONTINUE TO ASSIST PATIENT OUT OF BED FOR MEALS AND MUCH TOLERATED NURSING TO CONTINUE TO ASSIST PATIENT NEEDED WITH MEALS AND NUTRITIONAL SUPPLEMENTS TO ENSURE PROPER REQUIREMENTS FOR HEALING NURSING TO CONTINUE TO OFFLOAD FEET AND HEELS NEEDED WITH PILLOW SUSPENSION WHEN IN BED NURSING TO MAINTAIN AND PROTECT HEALING AREAS AND COVER HEALING STG 2 TO SACRUM ALLEVYN FOAM DRESSING REPLACE NEEDED RIGHT LOWER LEG SKIN TEAR WITH SLOUGH COVER WITH DUODERM FOR AUTOCLITIC WOUND BED PREPARATION AND CLEANUP Addendum: 11/24/19 at 1047 by Cruz Boyle RN Amended: Links added.
[2019-11-24] MEDS ORDERED: SODIUM CHLORIDE 0.9% 250ML 250 ML ONE (16:17)
--- NOTE | 2019-11-24 19:18 | NUR ---
PT RESTING ON BED BED SIDE REPORT GIVEN TO ONCOMING NURSE
[2019-11-24] MEDS: SIMVASTATIN 20 MG TAB PO SCH (21:46)
[2019-11-25] VITALS (12 sets, daily range): BP systolic 119–143; BP diastolic 65–82
[2019-11-25] MEDS: MEROPENEM 500MG/ NS 50ML 50 ML IV SCH ×2 (04:27→16:00)
--- NOTE | 2019-11-25 07:00 | NUR ---
RCD PT AT BED PT IS ALERT AND ORIENTED PT SLEEPING ON BED ON BED IV PATENT BY SALINE FLUSH HART DRAINING BY GRAVITY CHADWICK COLOR URINE BED LOW AND LOCKED CALL LIGHT IN REACH
[2019-11-25] MEDS: LIOTHYRONINE SODIUM 5 MCG TAB PO SCH (09:00)
[2019-11-25] MEDS: ESTRADIOL 1 MG TAB PO SCH (09:00)
[2019-11-25] MEDS: FLUDROCORTISONE ACETATE 0.1 MG TAB PO SCH (09:00)
[2019-11-25] MEDS: FUROSEMIDE 40 MG TAB PO SCH ×2 (09:00→16:44)
[2019-11-25] MEDS: ROPINIROLE HCL 1 MG TAB PO SCH ×2 (09:00→16:44)
[2019-11-25] MEDS: AMIODARONE HCL 200 MG TAB PO SCH (09:00)
[2019-11-25] MEDS: GEMFIBROZIL 600 MG TAB PO SCH (09:00)
[2019-11-25] MEDS: FOLIC ACID 1 MG TAB PO SCH (09:00)
[2019-11-25] MEDS: ASPIRIN 81 MG CHEW TAB PO SCH (09:00)
[2019-11-25] MEDS: ALLOPURINOL 300 MG TAB PO SCH (09:00)
[2019-11-25] MEDS: POTASSIUM CHLORIDE 10MEQ EA PO SCH (09:00)
--- NOTE | 2019-11-25 11:11 | Progress Note ---
DATE: SUBJECTIVE: Overnight the patient did okay, but still confused. OBJECTIVE: VITAL SIGNS: Temperature 97.3, pulse 81, blood pressure 140/79, sats 98%. GENERAL: No apparent distress, lying in bed, recognizes me, but does not recognize her place or year. CARDIOVASCULAR: Regular rate and rhythm. LUNGS: Clear to auscultation bilaterally. ABDOMEN: Good bowel sounds. Soft, nontender. EXTREMITIES: No clubbing or cyanosis. NEUROLOGIC: Moves all extremities x4. ASSESSMENT AND PLAN: 1. Encephalopathy most likely toxic, so continue with current care. 2. Urinary tract infection. Continue with antibiotics. 3. Chronic kidney disease stage 3. Continue to monitor. 4. Hyperlipidemia. Continue with her medicines. 5. Gout. Continue with her medication. 6. History of atrial fibrillation. Continue with her medication. 7. Hypothyroidism. Continue with her thyroid medication. Please see hospital chart for full details. MD JAMAR Gonzalez/JUN /[id number]
--- NOTE | 2019-11-25 12:00 | NUR ---
DRESSING CHANGED ON LOWER SACRUM AND LEGS
[2019-11-25] MEDS ORDERED: ONDANSETRON HCL 4 MG ORAL DISINTEGRATING TAB PO PRN (12:15)
--- NOTE | 2019-11-25 18:28 | NUR ---
Nutrition Intervention Note RD Recommendation(s) for Physician: -Ensure BID for added nutrition -Ruben BID to promote wound healing -Continue current diet as ordered Plan of Care: RD following, monitoring for tolerance and adequacy Nutrition reason for involvement: Nutrition Risk Trigger (MST 4) and pressure ulcer RD Assessment (11/25/19) Pt is an 89 year old female admitted with confusion and UTI. Family member was at the bedside at time of visit. Per wound care note, pt also has an unstageable right heel pressure ulcer and healing stage 2 sacrum pressure ulcer. Pt reports she has been eating < 50% of meals for 1 month. Pt reported that she had lost about 15 lbs but was unsure of the timeframe of the weight loss. Pt has a weight of 181 lbs in chart, but pt stated this is not accurate and she weighs in the 150 lb range. No N/V or chewing/swallowing issues. Will continue to monitor. Principal Problems/Diagnoses: confusion and UTI PMH: HTN, CKD, afib, hypothyroid GI: soft, nontender, round abdomen Skin: Per wound care note, pt also has an unstageable right heel pressure ulcer and healing stage 2 sacrum pressure ulcer. Labs: (11/23) BUN 44, Creat 2.32 Meds: amiodarone, KCl, lasix, folic acid, meropenem, zofran, colace Ht: 69 inches Wt: 150 lbs (per pt) BMI: 22.1 kg/m2 IBW: 145 lbs Malnutrition Evaluation (11/25/2019) The patient does not meet criteria for a specified degree of malnutrition at this time. Will re-evaluate at follow-up as appropriate. . Energy intake: <75% of estimated energy requirements for 1 month Weight loss:Unable to assess Fat loss: unable to evaluate pt refused NFPE Muscle loss: unable to evaluate pt refused NFPE Supporting Evidence: Fluid accumulation: unable to evaluate, Functional Status: unable to evaluate Nutrition Prescription (Diet Order): Cardiac diet Estimated Nutritional Needs: 2291-6557 calories/day (25-35 kcal/kg ) Weight used: 68.2 kg per pt 68-102 g protein/day (1.0-1.5 g pro/kg) Weight used: 68.2 kg per pt Diet Adequacy: Not meeting calorie needs, Not meeting protein needs Tolerance: Tolerating PO Diet Education Needs Assessment: Diet education not indicated Nutrition Care Level: moderate Nutrition Diagnosis: Increased nutrient needs related to increased demand for protein and kcal as evidenced by unstageable right heel pressure ulcer and stage 2 sacral pressure ulcer. Goal: Patient will meet 75-100% of estimated needs by follow up Progress: N/A Interventions: -cholesterol, fat, sodium -modified diet, Commercial beverage Monitoring/Evaluation: -Total energy intake, Total protein intake, Modified diet, Liquid supplement, Weight change Signed: Deja Salazar RD, LD
--- NOTE | 2019-11-25 19:08 | NUR ---
PT RESTING ON BED BED SIDE REPORT GIVEN TO ONCOMING NURSE
--- NOTE | 2019-11-25 19:20 | NUR ---
received report from day nurse. patient is resting comfortably in the bed. bed is in the lowest position and call light is within reach. will continue to monitor patient.
[2019-11-25] MEDS: SIMVASTATIN 20 MG TAB PO SCH (22:45)
[2019-11-26] VITALS (7 sets, daily range): BP systolic 113–143; BP diastolic 61–85
[2019-11-26] MEDS: ACETAMINOPHEN/CODEINE 300MG - 30MG TAB PO PRN (05:00)
[2019-11-26] MEDS: MEROPENEM 500MG/ NS 50ML 50 ML IV SCH ×2 (05:09→18:16)
--- NOTE | 2019-11-26 07:18 | NUR ---
report given to day nurse. patient is resting comfortably in bed. bed is in lowest position and call light is within reach.
[2019-11-26 07:35] LABS: BASOPHILS # (AUTO) 0.1 (0.0-0.1); BASOPHILS % 0.9 % (0.0-1.0); EOSINOPHILS # (AUTO) 0.1 (0.0-0.4); EOSINOPHILS % 2.1 % (0.0-6.0); HEMATOCRIT 38.8 % (34.2-44.1); HEMOGLOBIN 12.1 g/dL (12.0-16.0); LYMPHOCYTES # (AUTO) 1.1 (1.0-3.2); LYMPHOCYTES % 19.9 % (18.0-39.1); MEAN CORPUSCULAR HEMOGLOBIN 28.7 pg (28-32); MEAN CORPUSCULAR HGB CONC 31.2 g/dL (31-35); MEAN CORPUSCULAR VOLUME 92.2 fL (81-99); MONOCYTES # (AUTO) 0.4 (0.2-0.8); NEUTROPHILS # (AUTO) 3.6 (2.1-6.9); NEUTROPHILS % 68.7 % (38.7-80.0); PLATELET COUNT 134 x10e3/uL (140-360); RED BLOOD COUNT 4.21 x10e6/uL (3.6-5.1); RED CELL DISTRIBUTION WIDTH 15.9 % (11.7-14.4)
[2019-11-26 07:55] LABS: ALBUMIN 2.5 g/dL (3.5-5.0); ALBUMIN/GLOBULIN RATIO 0.7 (0.8-2.0); ANION GAP 12.6 mmol/L (8-16); CALCIUM 8.5 mg/dL (8.4-10.2); CREATININE, SERUM 1.83 mg/dL (0.57-1.11); MAGNESIUM 1.7 MG/DL (1.3-2.1); POTASSIUM 3.6 mmol/L (3.5-5.1)
[2019-11-26] MEDS: AMIODARONE HCL 200 MG TAB PO SCH (09:12)
[2019-11-26] MEDS: POTASSIUM CHLORIDE 10MEQ EA PO SCH (09:12)
[2019-11-26] MEDS: GEMFIBROZIL 600 MG TAB PO SCH (09:12)
[2019-11-26] MEDS: ASPIRIN 81 MG CHEW TAB PO SCH (09:12)
[2019-11-26] MEDS: FOLIC ACID 1 MG TAB PO SCH (09:12)
[2019-11-26] MEDS: ROPINIROLE HCL 1 MG TAB PO SCH ×2 (09:12→18:16)
[2019-11-26] MEDS: FUROSEMIDE 40 MG TAB PO SCH ×2 (09:12→18:16)
[2019-11-26] MEDS: FLUDROCORTISONE ACETATE 0.1 MG TAB PO SCH (09:12)
[2019-11-26] MEDS: ALLOPURINOL 300 MG TAB PO SCH (09:12)
[2019-11-26] MEDS: ESTRADIOL 1 MG TAB PO SCH (09:12)
[2019-11-26] MEDS: LIOTHYRONINE SODIUM 5 MCG TAB PO SCH (09:12)
--- NOTE | 2019-11-26 18:46 | NUR ---
patient tolerated dinner, no distress noted, call light in reach
--- NOTE | 2019-11-26 19:30 | NUR ---
RECEIVED REPORT FROM DAY NURSE. PATIENT IS RESTING COMFORTABLY IN THE BED. BED IS IN LOWEST POSITION AND CALL LIGHT IS WITHIN REACH. WILL CONTINUE TO MONITOR PATIENT.
[2019-11-26] MEDS: SIMVASTATIN 20 MG TAB PO SCH (22:39)
[2019-11-26] MEDS: LORAZEPAM INJ 2 MG/ML VIAL IV PRN (23:06)
[2019-11-27] VITALS (8 sets, daily range): BP systolic 114–135; BP diastolic 64–93
--- NOTE | 2019-11-27 00:04 | NUR ---
Patient arrived to unit via bed. Awake and in stable condition, no s/s of distress at this time. All safety measures in place. Will continue to monitor.
[2019-11-27] MEDS ORDERED: SODIUM CHLORIDE 0.9% 250ML 250 ML ONE (04:04)
[2019-11-27] MEDS: MEROPENEM 500MG/ NS 50ML 50 ML IV SCH ×2 (04:13→16:00)
--- NOTE | 2019-11-27 06:27 | NUR ---
Dr. Bryant here to see patient. Informed him that right frias wound has some mild drainage. Received orders to obtain wound culture.
--- NOTE | 2019-11-27 07:04 | NUR ---
Bedside report given to day nurse. Patient awake and resting in bed, no s/s of distress at this time. All safety measures in place.
--- NOTE | 2019-11-27 08:05 | Progress Note ---
DATE: SUBJECTIVE: The patient was admitted to the hospital for acute mental status changes; urinary tract infection; encephalopathy, toxic; chronic kidney injury; history of atrial fibrillation; and hyperthyroidism. Currently, the patient is more congruent with her thoughts. No chest pain. No shortness of breath. Pleasant. PHYSICAL EXAMINATION: VITAL SIGNS: Temperature is 96.1, afebrile, pulse of 60, respirations of 20, blood pressure is 127/83, pulse oximetry of 92%. HEENT: Normocephalic, atraumatic. The patient has a very dry mouth. CVS: S1 and S2 normal. Regular rate and rhythm now. ABDOMEN: Nontender, nondistended. EXTREMITIES: Positive for multiple ecchymoses, changes with dermatitis, atrophic changes, and also decreased pulses to lower extremities. LABORATORY VALUES: On the , white count was normal at 5.27 with normal H and H. Sodium was 138, potassium is 3.6, BUN is 42, creatinine of 1.83. MICROBIOLOGY: Urine culture shows no growth and blood culture was negative. CURRENT MEDICATIONS: The patient is on meropenem antibiotics and rest of her home medications. ASSESSMENT: Ms. Micaela Wolfe with: 1. Urinary tract infection. 2. Toxic encephalopathy. 3. Atrial fibrillation. 4. Hyperlipidemia. 5. Gout. 6. Chronic debility. 7. Hypothyroidism. 8. Iylzc-tw-atcarlo kidney injury. PLAN: Continue current meropenem. She will probably need placement depending on where she came from. Check laboratory values tomorrow. We will continue monitoring her. Further recommendation per clinical course. MD ROLDAN Wing/MODL /[id number]
[2019-11-27] MEDS: ESTRADIOL 1 MG TAB PO SCH (09:00)
[2019-11-27] MEDS: ASPIRIN 81 MG CHEW TAB PO SCH (09:05)
[2019-11-27] MEDS: FOLIC ACID 1 MG TAB PO SCH (09:06)
[2019-11-27] MEDS: LIOTHYRONINE SODIUM 5 MCG TAB PO SCH (09:06)
[2019-11-27] MEDS: FLUDROCORTISONE ACETATE 0.1 MG TAB PO SCH (09:06)
[2019-11-27] MEDS: AMIODARONE HCL 200 MG TAB PO SCH (09:06)
[2019-11-27] MEDS: POTASSIUM CHLORIDE 10MEQ EA PO SCH (09:07)
[2019-11-27] MEDS: GEMFIBROZIL 600 MG TAB PO SCH (09:07)
[2019-11-27] MEDS: ALLOPURINOL 300 MG TAB PO SCH (09:07)
[2019-11-27] MEDS: FUROSEMIDE 40 MG TAB PO SCH ×2 (09:07→16:57)
[2019-11-27] MEDS: ROPINIROLE HCL 1 MG TAB PO SCH ×2 (09:07→16:57)
--- NOTE | 2019-11-27 19:04 | NUR ---
WALKING ROUNDS COMPLETE, PT STABLE AT THIS TIME, WALKING ROUNDS COMPLETE.
--- NOTE | 2019-11-27 19:13 | NUR ---
Received bedside report from day nurse. Patient resting in bed, no s/s of distress at this time. All safety measures in place. Will continue to monitor.
[2019-11-27] MEDS: SIMVASTATIN 20 MG TAB PO SCH (20:33)
[2019-11-28] VITALS (8 sets, daily range): BP systolic 82–128; BP diastolic 54–89
[2019-11-28] MEDS: MEROPENEM 500MG/ NS 50ML 50 ML IV SCH ×2 (03:55→15:11)
--- NOTE | 2019-11-28 05:22 | NUR ---
Wound care performed. Patient tolerated well.
[2019-11-28 06:20] LABS: ANION GAP 13.9 mmol/L (8-16); CALCIUM 8.5 mg/dL (8.4-10.2); CREATININE, SERUM 1.95 mg/dL (0.57-1.11); POTASSIUM 3.9 mmol/L (3.5-5.1)
--- NOTE | 2019-11-28 07:00 | NUR ---
Received patient lying in bed with eyes open. Respiration even and unlabored without SOB. Call light in reach. Addendum: 11/28/19 at 0732 by Samreen Wang RN Indwelling urinary catheter intact secured to leg with yellow-colored urine noted.
--- NOTE | 2019-11-28 07:23 | NUR ---
Bedside report given to day nurse. Patient awake and resting in bed, no s/s of distress at this time. All safety measures in place.
[2019-11-28] MEDS: ASPIRIN 81 MG CHEW TAB PO SCH (09:04)
[2019-11-28] MEDS: AMIODARONE HCL 200 MG TAB PO SCH (09:05)
[2019-11-28] MEDS: LIOTHYRONINE SODIUM 5 MCG TAB PO SCH (09:05)
[2019-11-28] MEDS: ESTRADIOL 1 MG TAB PO SCH (09:05)
[2019-11-28] MEDS: POTASSIUM CHLORIDE 10MEQ EA PO SCH (09:06)
[2019-11-28] MEDS: FLUDROCORTISONE ACETATE 0.1 MG TAB PO SCH (09:06)
[2019-11-28] MEDS: FOLIC ACID 1 MG TAB PO SCH (09:06)
[2019-11-28] MEDS: ALLOPURINOL 300 MG TAB PO SCH (09:07)
[2019-11-28] MEDS: GEMFIBROZIL 600 MG TAB PO SCH (09:07)
[2019-11-28] MEDS: ROPINIROLE HCL 1 MG TAB PO SCH ×2 (09:07→15:11)
[2019-11-28] MEDS: FUROSEMIDE 40 MG TAB PO SCH ×2 (09:07→15:11)
[2019-11-28] MEDS: ACETAMINOPHEN/CODEINE 300MG - 30MG TAB PO PRN (09:32)
--- NOTE | 2019-11-28 12:47 | NUR ---
SPOKE WITH PT AND FAMILY AT BEDSIDE, PT IS [facility], THEY DO NOT WANT TO RETURN DUE TO CARE. GAVE OTHER OPTIONS IN AREA, [facility], [facility] AND [facility]. FAMILY CHOSE [facility]. WILL FAX PACKET AND PAS[facility] TO FACILITY WHEN GET ORDER.
--- NOTE | 2019-11-28 19:08 | NUR ---
Report given to warehouse supervisor 3rd shift. Respiration even and unlabored without SOB. Call light in reach.
--- NOTE | 2019-11-28 19:08 | NUR ---
REPORT RECEIVED FROM DAY RN. PT ALERT AND ORIENTED X3. RESPIRATIONS EVEN AND UNLABORED. TELE ON. UPPER EXTREMITIES BRUISED AND LOWER EXTREMITIES BRUISED. UPPER AND LOWER EXTREMITIES EDEMATOUS. AV FISTULA LEFT ARM- BRUIT PRESENT. O2 2L PER N/C ON. HART DRAINING CLEAR YELLOW URINE. CALL LIGHT WITHIN REACH. BED LOCKED AND IN LOW POSITION.
[2019-11-28] MEDS: SIMVASTATIN 20 MG TAB PO SCH (20:34)
[2019-11-29] VITALS: BP 113/78
[2019-11-29 04:00] VITALS: BP 136/82
[2019-11-29] MEDS: MEROPENEM 500MG/ NS 50ML 50 ML IV SCH (04:00)
[2019-11-29 07:44] VITALS: BP 136/82
[2019-11-29 08:12] VITALS: BP 118/65
[2019-11-29] MEDS: AMIODARONE HCL 200 MG TAB PO SCH (09:18)
[2019-11-29] MEDS: ASPIRIN 81 MG CHEW TAB PO SCH (09:18)
[2019-11-29] MEDS: FOLIC ACID 1 MG TAB PO SCH (09:19)
[2019-11-29] MEDS: FLUDROCORTISONE ACETATE 0.1 MG TAB PO SCH (09:19)
[2019-11-29] MEDS: LIOTHYRONINE SODIUM 5 MCG TAB PO SCH (09:19)
[2019-11-29] MEDS: ESTRADIOL 1 MG TAB PO SCH (09:19)
[2019-11-29] MEDS: FUROSEMIDE 40 MG TAB PO SCH (09:20)
[2019-11-29] MEDS: ROPINIROLE HCL 1 MG TAB PO SCH (09:20)
[2019-11-29] MEDS: POTASSIUM CHLORIDE 10MEQ EA PO SCH (09:20)
[2019-11-29] MEDS: ALLOPURINOL 300 MG TAB PO SCH (09:20)
[2019-11-29] MEDS: GEMFIBROZIL 600 MG TAB PO SCH (09:20)
[2019-11-29 11:52] VITALS: BP 122/66
[2019-11-29] MEDS ORDERED: MEROPENEM500 MG IV (13:27)
--- NOTE | 2019-11-29 13:45 | NUR ---
[facility] DISCHARGE INFORMATION PATIENT HAS BEEN ACCEPTED TO: [facility] ADDRESS:[id number] ACCEPTING RN MDS COORDINATOR: WALTER REYES MD:JIGNESH ROOM:[id number] NURSE CALL REPORT TO: [phone] IMM SIGNED AND OBTAINED (if applicable): IMM THE FOLLOWING DOCUMENTS MUST ACCOMPANY PATIENT FOR TRANSFER: COPIED CHART:PACKET
--- NOTE | 2019-11-29 14:10 | NUR ---
PROVIDER WAS UPSET DUE TO NOT BEING ABLE TO CONTINUE TO CARE FOR PT AT FACILITY. LET HER KNOW THAT CURRENTLY DUE TO THE SITUATION THE FACILITY IS RESTRICTING VISITORS, CALLED DAUGHTER AND ASKED HER IF SHE STILL WANTED HER TO GO TO THE FACILITY AND SHE STATED "ABSOLUTELY". LET NURSE KNOW DAUGHTERS WISHES. PROVIDER WANTED TO SPEAK WITH THE PT ALONE. STAFF LET HER KNOW TO CONTACT THE DAUGHTER.
--- NOTE | 2019-11-29 14:14 | NUR ---
report called to [facility]. Transportation arranged. Patients daughter, Marah, notified. Patient's caregiver at bedside and patient aware of transport arranged for today. patient will discharge with [facility] and LIBIA. waiting for arrival of transport at this time. KAYLYNN.
--- NOTE | 2019-11-29 15:20 | NUR ---
Acute medical transportation at bedside to transport patient to [facility]. Discharge completed via telephone with patient's daughter, Marah. LIBIA and natali left in place.
--- NOTE | 2019-12-04 08:29 | Discharge Summary ---
DISCHARGE DIAGNOSES: 1. Toxic encephalopathy. 2. Urinary tract infection. 3. Chronic kidney disease stage 3. 4. Hypertension. HISTORY OF PRESENT ILLNESS AND HOSPITAL COURSE: See hospital chart for full details. The patient is an elderly lady, who presented with some encephalopathy most likely secondary to toxic from her chronic kidney disease, as well as her urinary tract infection. She was placed on antibiotics, where she had an improvement of her encephalopathy, back to near baseline, but due to the patient's overall weakness and other comorbid conditions, she as well as some other family members and friends felt like she would be better served at a [place] [facility] facility, so therefore she was then transferred [place] a [place] [facility] for continued IV antibiotics and treatment therapy. Please see hospital chart for full details. MD JAMAR Gonzalez/JUN /[id number]
== END 2019-11-29 15:30 | DRG 689 ==
LOC: ER 11:41 → ERHOLD 15:50 → MED/SURG2 19:11 → MED/SURG 11-27 00:10
PROVIDERS: ADMIT Internal Medicine; ATTEND Internal Medicine
DX: N39.0 Urinary tract infection, site not specified (principal); G92 Toxic encephalopathy; N17.9 Acute kidney failure, unspecified; I12.9 Hypertensive chronic kidney disease with stage 1 through stage 4 chronic kidney disease, or unspecified chronic kidney disease; I48.91 Unspecified atrial fibrillation; E78.5 Hyperlipidemia, unspecified; E03.9 Hypothyroidism, unspecified; N18.3 Chronic kidney disease, stage 3 (moderate); M10.9 Gout, unspecified; Z66 Do not resuscitate
CPT/HCPCS: 36415; 71045; 80048; 80053; 81001; 82550; 82553; 83605; 83735; 83880; 84484; 85025; 85610; 85730; 87040; 87071; 87086; 87186; 87205; 93005; 97139; 99251; 99284; J2060; J3486; J7030; J7040; J7050